=== PATIENT | female | born 1940 | race Caucasian/White ===

== ENCOUNTER 2017-11-25 22:19 | Emergency (ER) | payer MEDICARE, SELFPAY ==
[2017-11-25 22:33] VITALS: BP 171/92; PULSE 69; RESP 18; TEMP 36.4; O2SAT 97; BMI 22.9
--- NOTE | 2017-11-25 22:42 | ED.ABDPAIN ---
HPI - Abdominal Pain General Chief Complaint: Abdominal Pain Stated Complaint: RT LOWER PAIN Time Seen by Provider: 11/25/17 22:38 Source: patient Mode of arrival: ambulatory Limitations: no limitations History of Present Illness HPI narrative: 77-year-old female here for evaluation of abdominal pain. Patient states that earlier this evening after she had dinner she had a period of time where she had 3 waves of which she described as generalized abdominal cramping. Unsure exactly how long the symptoms lasted. She states that her last episode was prior to arrival here in the ER. Patient states she took some Gas-X medication when the symptoms were happening and symptoms resolved approximately 40 min after taking this medicine. No prior abdominal surgeries. Related Data Previous Rx's Medication Instructions Recorded estradiol [Vagifem] 10 mcg VG DAILY #30 05/23/12 bupropion HCl 300 mg PO QDAY #30 tab 05/30/17 lithium carbonate 300 mg PO HS #30 cap 10/03/17 bupropion HCl XL 150 mg 24 hr 150 mg PO QDAY #30 tab 10/25/17 tablet, extended release Allergies Allergy/AdvReac Type Severity Reaction Status Date / Time Sulfa (Sulfonamide Allergy Severe rash Verified 11/25/17 22:38 Antibiotics) [SULFA (SULFONAMIDE ANTIBIOTICS)] Penicillins [PENICILLINS] Allergy Unknown Verified 11/25/17 22:38 codeine [CODEINE] AdvReac Mild upset Verified 11/25/17 22:38 stomach Review of Systems Constitutional Denies chills, Denies fever(s), Denies lethargy and Denies weakness ENT Ears, Nose, Mouth, and Throat: Denies dysphagia Cardiovascular Denies chest pain and Denies dyspnea Respiratory Denies dyspnea Gastrointestinal Gastrointestinal: Reports abdominal pain, Denies melena, Denies bloating, Denies hematochezia, Denies change in bowel habits, Denies constipation, Reports cramping, Denies dysphagia, Denies diarrhea, Denies nausea and Denies vomiting Genitourinary Denies dysuria Neurologic Denies weakness Hematologic/Lymphatic Denies easy bruising PFSH Surgical History Status post cholecystectomy Social History Smoking Status: Former smoker Exam Initial Vital Signs Initial Vital Signs: Vital Signs Temperature 97.5 F L 11/25/17 22:33 Pulse Rate 69 11/25/17 22:33 Respiratory Rate 18 11/25/17 22:33 Blood Pressure 171/92 H 11/25/17 22:33 Pulse Oximetry 97 11/25/17 22:33 Resp Effort & Inspection: normal respiratory effort GI Inspection: normal to inspection and non-distended Palpation: soft, No firm, No guarding, No mass and No tender Skin General: no rashes or lesions noted Neuro General: alert, awake and oriented x3 Course Vital Signs - 8 hr 11/25/17 22:33 Temperature 97.5 F L Pulse Rate 69 Respiratory Rate 18 Blood Pressure 171/92 H Pulse Oximetry 97 MDM - Abdominal Pain MDM Narrative Medical decision making narrative: Patient has been asymptomatic for the past hour. Had a discussion with her regarding her symptoms and options to include holding on any further workup for now and going home and seeing what happens over the next 12-24 hours and returning to the emergency department if her symptoms worsen. We also discussed further workup here in the ER to include lab work come potential CT scan to evaluate for infectious processes such as diverticulitis or appendicitis or other surgical issue such as bowel obstructions. After this discussion the patient opted to hold on any further workup for now seeing as how she has been pain-free for the past hour. She expressed understanding with regard to the return precautions. We did discuss that she could potentially have loose stools over the next 12-24 hours. Her was at bedside for this discussions. They both expressed understanding and agreement with plan Discharge Plan Departure Patient Disposition: Home, Self-Care Clinical Impression: Abdominal pain Instructions: DI for Abdominal Pain-Adult Activity Restrictions/Additional Instructions: We are going to hold on further workup for now as per discussion. I would not be surprised if you developed diarrhea over the next 12-24 hours. If this happens make sure you increase your fluid intake to prevent dehydration. Return to the emergency department for any new or worsening symptoms. Prescriptions: No Action estradiol [Vagifem] 10 MCG tablet 10 mcg VG DAILY Qty: 30 RF: 3 bupropion HCl 300 MG tablet extended release 24 hr 300 mg PO QDAY Qty: 30 RF: 2 lithium carbonate 300 MG capsule 300 mg PO HS Qty: 30 RF: 2 bupropion HCl [Wellbutrin XL] 150 mg tablet extended release 24 hr 150 mg PO QDAY Qty: 30 RF: 2
[2017-11-25 23:40] VITALS: BP 137/73; PULSE 63; RESP 16; TEMP 36.2; O2SAT 98
== END 2017-11-25 23:31 | disposition home or self-care (01) ==
PROVIDERS: Emergency Provider Emergency Medicine; Family Provider Internal Medicine; PCP Internal Medicine
DX: R10.9 Unspecified abdominal pain (principal)
CPT/HCPCS: 99282

== ENCOUNTER 2018-04-16 10:32 | Emergency (ER) | payer MEDICARE, SELFPAY ==
[2018-04-16 10:46] VITALS: BP 139/85; PULSE 75; RESP 15; TEMP 36.5; O2SAT 100; BMI 23.3
[2018-04-16 11:43] VITALS: BP 146/76; PULSE 64; RESP 14; O2SAT 100
[2018-04-16] MEDS: ONDANSETRON 4 MG/2 ML INJ IV (12:22)
[2018-04-16 12:54] LABS: Add Manual Diff / Slide Review NO; Basophils Percent Auto 0.3 % (0-2); Eosinophils Percent Auto 1.6 % (2-4); Hematocrit 37.7 % (36-46); Hemoglobin 13.1 g/dL (12.0-16.0); Lymphocytes Percent Auto 16.8 % (25-40); Mean Corpuscular HGB Conc 34.9 % (30-36); Mean Corpuscular Hemoglobin 31.7 PG (26-34); Mean Corpuscular Volume 90.9 fL (80-100); Monocytes Percent Auto 7.9 % (3-14); Neutrophils Absolute Auto 4100 /uL (3000-5900); Neutrophils Percent Auto 73.4 % (50-75); Platelet Count 234 X10^3/uL (150-400); Red Blood Cell Count 4.15 X10^6/uL (4.0-5.2); Red Cell Distribution Width 13.1 % (11.6-14.8); White Blood Cell Count 5.5 X10^3/uL (4.5-11.0)
[2018-04-16 13:06] LABS: Alanine Aminotransferase 21 IU/L (9-52); Albumin 4.2 g/dL (3.5-5.0); Albumin Globulin Ratio 1.6 (1.0-2.8); Alkaline Phosphatase 82 U/L (38-126); Aspartate Aminotransferase 21 IU/L (14-36); Bilirubin Total 1.5 mg/dL (0.2-1.3); Blood Urea Nitrogen 11 mg/dL (7-17); Calcium 9.5 mg/dL (8.4-10.2); Carbon Dioxide 23 mmol/L (22-32); Chloride 106 mmol/L (98-107); Estimated Glomerular Filt Rate 53.6 mL/min (>60); Globulin 2.6 g/dL (1.7-4.1); Glucose 101 mg/dL (80-110); HEMOLYSIS < 15 (0-50); Potassium 3.8 mmol/L (3.4-5.1); Sodium 142 mmol/L (137-145); Total Protein 6.8 g/dL (6.3-8.2)
[2018-04-16 13:07] LABS: Amylase 69 U/L (30-110); Lipase 39 U/L (23-300)
[2018-04-16 13:31] VITALS: BP 151/72; PULSE 63; O2SAT 100
--- NOTE | 2018-04-16 13:45 | ED_ITS ---
HPI - Nausea/Vomiting/Diarrhea <FREDDIE Lebron - Last Filed: 04/16/18 19:29> General Chief complaint: Nausea/Vomiting/Diarrhea Stated complaint: weakness/throwing up Time Seen by Provider: 04/16/18 13:08 Source: patient and family Mode of arrival: ambulatory Limitations: no limitations History of Present Illness HPI Narrative: Patient presents with chief complaint of vomiting for the past 3 days. She also complains of some diarrhea. She denies any fevers or abdominal pain. She denies any dysuria urgency or frequency. She states she vomits at nighttime only. The diarrhea is often on. She states this started 3 days ago after she drank a cup of coffee. She has not eaten any solid food since. She states she has been drinking during the day but not too much she does not want to get sick. She also states she has not eaten any solid food for the past 3 days, But has been drinking tomato soup. Related Data Previous Rx's Medication Instructions Recorded estradiol [Vagifem] 10 mcg VG DAILY #30 05/23/12 bupropion HCl 300 mg PO QDAY #30 tab 05/30/17 bupropion HCl XL 150 mg 24 hr 150 mg PO QDAY #30 tab 04/10/18 tablet, extended release lithium carbonate 300 mg capsule 300 mg PO HS #30 cap 04/10/18 nitrofurantoin monohyd/m-cryst 100 mg PO Q12H #14 cap 04/16/18 [Macrobid] ondansetron 4 mg PO TID-QID PRN #30 tab 04/16/18 Allergies Allergy/AdvReac Type Severity Reaction Status Date / Time Sulfa (Sulfonamide Allergy Severe rash Verified 04/16/18 10:46 Antibiotics) [SULFA (SULFONAMIDE ANTIBIOTICS)] Penicillins [PENICILLINS] Allergy Unknown Verified 04/16/18 10:46 codeine [CODEINE] AdvReac Mild upset Verified 04/16/18 10:46 stomach Review of Systems <FREDDIE Lebron - Last Filed: 04/16/18 19:29> Review of Systems GENERAL: Denies chills, fatigue, malaise, fever, sweats. HEENT: Denies sinus pain, ear pain, sore throat, difficulty swallowing, dizziness. RESPIRATORY: Denies dyspnea, cough, wheezing, hemoptysis, sputum. CARDIOVASCULAR: Denies chest pain, palpitations, orthopnea, edema, GASTROINTESTINAL: See HPI : Denies dysuria, frequency, incontinence, hematuria, urinary retention. MUSCULOSKELETAL: denies weakness, joint pain, or bony pain SKIN: Denies rash, skin lesions, or other NEUROLOGIC: Denies weakness, headache, numbness, change in speech, confusion, seizures, incoordination. PSYCHIATRIC: No concerning psychosocial issues. 12 point review of systems is negative except for those stated above Exam <KENROY LebronBC - Last Filed: 04/16/18 19:29> Narrative Exam Narrative: GENERAL: thin female lying on stretcher HEAD: Atraumatic. Normocephalic. No temporal or scalp tenderness. EYES: Pupils equal round and reactive. Extraocular motions intact. No scleral icterus. No injection or drainage. ENT: Nose without bleeding, purulent drainage or septal hematoma. Throat without erythema, tonsillar hypertrophy or exudate. Uvula midline. Airway patent. NECK: Trachea midline. No JVD or lymphadenopathy. Supple, nontender, no meningeal signs. CARDIOVASCULAR: Regular rate and rhythm without murmurs, gallops, or rubs. RESPIRATORY: Clear to auscultation. Breath sounds equal bilaterally. No wheezes , rales, or rhonchi. no cough or increased work of breathing GASTROINTESTINAL: Abdomen soft, general suprapubic tenderness to palpation nondistended. No hepato-splenomegaly, or palpable masses. No guarding. no pulsatile mass. No pain at McBurney's point. Abdomen is soft, nonrigid with no guarding. EXTREMITIES: No clubbing, cyanosis, or edema. No joint tenderness, effusion, or edema noted. BACK: Nontender without deformity or crepitance. No flank tenderness. NEURO: AOx3. SKIN: No rash or erythema. Initial Vital Signs Initial Vital Signs: Vital Signs Temperature 97.7 F 04/16/18 10:46 Pulse Rate 75 04/16/18 10:46 Respiratory Rate 15 04/16/18 10:46 Blood Pressure 139/85 04/16/18 10:46 Pulse Oximetry 100 04/16/18 10:46 <Carol Smith DO - Last Filed: 04/16/18 19:42> Initial Vital Signs Initial Vital Signs: Vital Signs Temperature 97.7 F 04/16/18 10:46 Pulse Rate 75 04/16/18 10:46 Respiratory Rate 15 04/16/18 10:46 Blood Pressure 139/85 04/16/18 10:46 Pulse Oximetry 100 04/16/18 10:46 Course <ARIELA Lebron-BC - Last Filed: 04/16/18 19:29> Orders Ordered: ED Orders 04/16/18 12:20 Amylase Stat Complete Blood Count AUTO DIFF Stat Comprehensive Metabolic Panel Stat Lipase Stat 04/16/18 15:58 Urine Culture Stat Urine Microscopic Stat Discontinued Medications Sodium Chloride (Normal Saline 0.9%) 1,000 mls @ 1,000 mls/hr IV BOLUS ONE Stop: 04/16/18 14:29 Last Infusion: 04/16/18 16:08 Dose: 0 mls/hr Admin: 04/16/18 13:48 Dose: 1,000 mls/hr Ondansetron HCl (Zofran) 4 mg IV NOW ONE Stop: 04/16/18 11:32 Last Admin: 04/16/18 12:22 Dose: 4 mg Vital Signs - 8 hr 04/16/18 11:43 04/16/18 13:31 04/16/18 14:31 Pulse Rate 64 63 77 Respiratory Rate 14 Blood Pressure Blood Pressure [Left Arm] 146/76 H 151/72 H 139/55 L Pulse Oximetry 100 100 100 04/16/18 16:46 Pulse Rate 82 Respiratory Rate 13 Blood Pressure 142/82 H Blood Pressure [Left Arm] Pulse Oximetry 100 <Carol Smith DO - Last Filed: 04/16/18 19:42> Orders Ordered: ED Orders 04/16/18 12:20 Amylase Stat Complete Blood Count AUTO DIFF Stat Comprehensive Metabolic Panel Stat Lipase Stat 04/16/18 15:58 Urine Culture Stat Urine Microscopic Stat Discontinued Medications Sodium Chloride (Normal Saline 0.9%) 1,000 mls @ 1,000 mls/hr IV BOLUS ONE Stop: 04/16/18 14:29 Last Infusion: 04/16/18 16:08 Dose: 0 mls/hr Admin: 04/16/18 13:48 Dose: 1,000 mls/hr Ondansetron HCl (Zofran) 4 mg IV NOW ONE Stop: 04/16/18 11:32 Last Admin: 04/16/18 12:22 Dose: 4 mg Vital Signs - 8 hr 04/16/18 11:43 04/16/18 13:31 04/16/18 14:31 Pulse Rate 64 63 77 Respiratory Rate 14 Blood Pressure Blood Pressure [Left Arm] 146/76 H 151/72 H 139/55 L Pulse Oximetry 100 100 100 04/16/18 16:46 Pulse Rate 82 Respiratory Rate 13 Blood Pressure 142/82 H Blood Pressure [Left Arm] Pulse Oximetry 100 MDM - Nausea/Vomiting/Diarrhea <ARIELA Lebron- - Last Filed: 04/16/18 19:29> Lab Data Result diagrams: 04/16/18 12:20 04/16/18 12:20 Lab Results 04/16/18 04/16/18 04/16/18 Range/Units 12:20 12:20 12:20 WBC 5.5 (4.5-11.0) X10^3/uL RBC 4.15 (4.0-5.2) X10^6/uL Hgb 13.1 (12.0-16.0) g/dL Hct 37.7 (36-46) % MCV 90.9 (80-100) fL MCH 31.7 (26-34) PG MCHC 34.9 (30-36) % RDW 13.1 (11.6-14.8) % Plt Count 234 (150-400) X10^3/uL Neut % (Auto) 73.4 (50-75) % Lymph % (Auto) 16.8 L (25-40) % Tucker % (Auto) 7.9 (3-14) % Eos % (Auto) 1.6 L (2-4) % Baso % (Auto) 0.3 (0-2) % Neut # (Auto) 4100 (6955-8957) /uL Sodium 142 (137-145) mmol/L Potassium 3.8 (3.4-5.1) mmol/L Chloride 106 (98-107) mmol/L Carbon Dioxide 23 (22-32) mmol/L BUN 11 (7-17) mg/dL Creatinine 1.00 (0.52-1.04) mg/dL Estimated GFR 53.6 L (>60) mL/min BUN/Creatinine Ratio 11.0 (6-22) Glucose 101 (80-110) mg/dL Calcium 9.5 (8.4-10.2) mg/dL Total Bilirubin 1.5 H (0.2-1.3) mg/dL AST 21 (14-36) IU/L ALT 21 (9-52) IU/L Alkaline Phosphatase 82 (38-126) U/L Total Protein 6.8 (6.3-8.2) g/dL Albumin 4.2 (3.5-5.0) g/dL Globulin 2.6 (1.7-4.1) g/dL Albumin/Globulin Ratio 1.6 (1.0-2.8) Amylase 69 (30-110) U/L Lipase 39 (23-300) U/L Urine RBC (0-5/HPF) Urine WBC (0-5/HPF) Ur Squamous Epith Cells Urine Bacteria (None) Ur Culture Indicated? Micro UA Comment 04/16/18 Range/Units 15:58 WBC (4.5-11.0) X10^3/uL RBC (4.0-5.2) X10^6/uL Hgb (12.0-16.0) g/dL Hct (36-46) % MCV (80-100) fL MCH (26-34) PG MCHC (30-36) % RDW (11.6-14.8) % Plt Count (150-400) X10^3/uL Neut % (Auto) (50-75) % Lymph % (Auto) (25-40) % Tucker % (Auto) (3-14) % Eos % (Auto) (2-4) % Baso % (Auto) (0-2) % Neut # (Auto) (0881-9980) /uL Sodium (137-145) mmol/L Potassium (3.4-5.1) mmol/L Chloride (98-107) mmol/L Carbon Dioxide (22-32) mmol/L BUN (7-17) mg/dL Creatinine (0.52-1.04) mg/dL Estimated GFR (>60) mL/min BUN/Creatinine Ratio (6-22) Glucose (80-110) mg/dL Calcium (8.4-10.2) mg/dL Total Bilirubin (0.2-1.3) mg/dL AST (14-36) IU/L ALT (9-52) IU/L Alkaline Phosphatase (38-126) U/L Total Protein (6.3-8.2) g/dL Albumin (3.5-5.0) g/dL Globulin (1.7-4.1) g/dL Albumin/Globulin Ratio (1.0-2.8) Amylase (30-110) U/L Lipase (23-300) U/L Urine RBC None seen (0-5/HPF) Urine WBC 5-10/hpf H (0-5/HPF) Ur Squamous Epith Cells 0-1 /hpf Urine Bacteria Few (2-10) H (None) Ur Culture Indicated? Specimen cultured Micro UA Comment Not Reportable MDM Narrative Medical decision making narrative: Patient presents with chief complaint of nausea and vomiting and diarrhea. She states that her vomiting only occurs at nighttime. She is hemodynamically stable, afebrile and nontoxic-appearing. She had a CBC, CMP, lipase and amylase within normal limits. Given her relatively benign exam and stable vital signs and non elevated white blood cell count, I suggested conservative measures at this point in time. I gave her prescription of Zofran. Of note she did have bacteria in her urine, and a UTI could be causing the symptoms. I placed her on Macrobid. Urine culture is pending. The patient stated prior to discharge that she had drank kiley annita , eaten crackers and felt back to her baseline. I discussed at length return precautions of not being able to keep down fluids, worsening pain and fever. Patient has been had no questions or concerns upon discharge. <Carol Smith, DO - Last Filed: 04/16/18 19:42> Lab Data Lab Results 04/16/18 04/16/18 04/16/18 Range/Units 12:20 12:20 12:20 WBC 5.5 (4.5-11.0) X10^3/uL RBC 4.15 (4.0-5.2) X10^6/uL Hgb 13.1 (12.0-16.0) g/dL Hct 37.7 (36-46) % MCV 90.9 (80-100) fL MCH 31.7 (26-34) PG MCHC 34.9 (30-36) % RDW 13.1 (11.6-14.8) % Plt Count 234 (150-400) X10^3/uL Neut % (Auto) 73.4 (50-75) % Lymph % (Auto) 16.8 L (25-40) % Tucker % (Auto) 7.9 (3-14) % Eos % (Auto) 1.6 L (2-4) % Baso % (Auto) 0.3 (0-2) % Neut # (Auto) 4100 (6823-2978) /uL Sodium 142 (137-145) mmol/L Potassium 3.8 (3.4-5.1) mmol/L Chloride 106 (98-107) mmol/L Carbon Dioxide 23 (22-32) mmol/L BUN 11 (7-17) mg/dL Creatinine 1.00 (0.52-1.04) mg/dL Estimated GFR 53.6 L (>60) mL/min BUN/Creatinine Ratio 11.0 (6-22) Glucose 101 (80-110) mg/dL Calcium 9.5 (8.4-10.2) mg/dL Total Bilirubin 1.5 H (0.2-1.3) mg/dL AST 21 (14-36) IU/L ALT 21 (9-52) IU/L Alkaline Phosphatase 82 (38-126) U/L Total Protein 6.8 (6.3-8.2) g/dL Albumin 4.2 (3.5-5.0) g/dL Globulin 2.6 (1.7-4.1) g/dL Albumin/Globulin Ratio 1.6 (1.0-2.8) Amylase 69 (30-110) U/L Lipase 39 (23-300) U/L Urine RBC (0-5/HPF) Urine WBC (0-5/HPF) Ur Squamous Epith Cells Urine Bacteria (None) Ur Culture Indicated? Micro UA Comment 04/16/18 Range/Units 15:58 WBC (4.5-11.0) X10^3/uL RBC (4.0-5.2) X10^6/uL Hgb (12.0-16.0) g/dL Hct (36-46) % MCV (80-100) fL MCH (26-34) PG MCHC (30-36) % RDW (11.6-14.8) % Plt Count (150-400) X10^3/uL Neut % (Auto) (50-75) % Lymph % (Auto) (25-40) % Tucker % (Auto) (3-14) % Eos % (Auto) (2-4) % Baso % (Auto) (0-2) % Neut # (Auto) (7093-0118) /uL Sodium (137-145) mmol/L Potassium (3.4-5.1) mmol/L Chloride (98-107) mmol/L Carbon Dioxide (22-32) mmol/L BUN (7-17) mg/dL Creatinine (0.52-1.04) mg/dL Estimated GFR (>60) mL/min BUN/Creatinine Ratio (6-22) Glucose (80-110) mg/dL Calcium (8.4-10.2) mg/dL Total Bilirubin (0.2-1.3) mg/dL AST (14-36) IU/L ALT (9-52) IU/L Alkaline Phosphatase (38-126) U/L Total Protein (6.3-8.2) g/dL Albumin (3.5-5.0) g/dL Globulin (1.7-4.1) g/dL Albumin/Globulin Ratio (1.0-2.8) Amylase (30-110) U/L Lipase (23-300) U/L Urine RBC None seen (0-5/HPF) Urine WBC 5-10/hpf H (0-5/HPF) Ur Squamous Epith Cells 0-1 /hpf Urine Bacteria Few (2-10) H (None) Ur Culture Indicated? Specimen cultured Micro UA Comment Not Reportable Discharge Plan Departure Patient Disposition: Home Clinical Impression: Acute UTI, Vomiting, Recurrent major depressive disorder, in partial remission Discharge Date/Time: 04/16/18 16:40 Interventions: ED Discharge Assessment Last Done: 04/16/18 16:46 Instructions: DI for Urinary Tract Infection (UTI), DI for Vomiting -- Adult Activity Restrictions/Additional Instructions: Given the bacteria in your urine, I am starting you on an antibiotic for a urinary tract infection. I am also giving you a medication to take as needed for nausea. I suggested easy to digest diet without spicy foods, acidic foods , fried foods or fatty foods. Please push fluids, monitor for high fever, worsening abdominal pain as well as flank pain. Come back to the emergency department if needed. Please feel free to follow up with your primary care provider. Prescriptions: New nitrofurantoin monohyd/m-cryst [Macrobid] 100 mg capsule 100 mg PO Q12H Qty: 14 RF: 0 ondansetron 4 mg tablet,disintegrating 4 mg PO TID-QID PRN (Reason: nausea and vomiting) Qty: 30 RF: 0 No Action estradiol [Vagifem] 10 MCG tablet 10 mcg VG DAILY Qty: 30 RF: 3 bupropion HCl 300 MG tablet extended release 24 hr 300 mg PO QDAY Qty: 30 RF: 2 bupropion HCl [Wellbutrin XL] 150 mg tablet extended release 24 hr 150 mg PO QDAY Qty: 30 RF: 2 lithium carbonate 300 mg capsule 300 mg PO HS Qty: 30 RF: 2 Referrals: Nigel Galan MD [Primary Care Provider] - <Carol Smith DO - Last Filed: 04/16/18 19:42> Cosign ED Attending Cosignature Attestation: I was immediately available in the department for consultation. This documentation has been reviewed and I agree with assessment and plan. Supervised by Carol Smith DO
[2018-04-16] MEDS: SODIUM CHLORIDE 0.9% 1,000 ML 1000 ML IV (13:48)
[2018-04-16 14:31] VITALS: BP 139/55; PULSE 77; O2SAT 100
[2018-04-16 16:02] LABS: RBC Urine None Seen (0-5/HPF)
[2018-04-16 16:09] LABS: Squamous Epithelial Cell Urine 0-1 /HPF; WBC Urine 5-10/HPF (0-5/HPF)
[2018-04-16 16:10] LABS: Bacteria Urine Few (2-10); Culture Indicated Urine Specimen Cultured
[2018-04-16 16:46] VITALS: BP 142/82; PULSE 82; RESP 13; O2SAT 100
== END 2018-04-16 16:40 | disposition home or self-care (01) ==
PROVIDERS: Emergency Medicine; Emergency Provider Nurse Practitioner Family; Family Provider Internal Medicine; PCP Internal Medicine
DX: N39.0 Urinary tract infection, site not specified (principal); R11.10 Vomiting, unspecified; F33.41 Major depressive disorder, recurrent, in partial remission
CPT/HCPCS: 36591; 80053; 81015; 82150; 83690; 85025; 87086; 96361; 96374; 99283; 99284; J2405

== ENCOUNTER 2018-06-27 21:57 | Emergency (ER) | payer MEDICARE, SELFPAY ==
[2018-06-27 22:07] VITALS: BP 129/99; PULSE 80; RESP 18; TEMP 36.6; O2SAT 100; BMI 23.3
--- NOTE | 2018-06-27 22:20 | ED_ITS ---
HPI - Abdominal Pain General Chief Complaint: Abdominal Pain Stated Complaint: NAUSEA WEAKNESS Time Seen by Provider: 06/27/18 22:20 Source: patient and family Mode of arrival: ambulatory Limitations: no limitations History of Present Illness HPI narrative: 78-year-old female here for evaluation of approximately 1 month of intermittent diarrhea and nausea. She also states that she has a loss of appetite. She also states she is feeling weak. She states that she gets intermittent diarrhea. She has been taking Imodium at home which she states improved her symptoms for a couple days to if not a week afterwards but then the diarrhea returns. She did recently have an appointment with her primary doctor however did not mention the symptoms to him. She is here this evening because her told her that she needed to be evaluated. Related Data Previous Rx's Medication Instructions Recorded estradiol [Vagifem] 10 mcg VG DAILY #30 05/23/12 bupropion HCl 300 mg PO QDAY #30 tab 05/30/17 bupropion HCl XL 150 mg 24 hr 150 mg PO QDAY #30 tab 04/10/18 tablet, extended release lithium carbonate 300 mg capsule 300 mg PO HS #30 cap 04/10/18 nitrofurantoin monohyd/m-cryst 100 mg PO Q12H #14 cap 04/16/18 [Macrobid] ondansetron 4 mg PO TID-QID PRN #30 tab 04/16/18 ondansetron 4 mg PO Q6-8H PRN #10 tab 06/28/18 Allergies Allergy/AdvReac Type Severity Reaction Status Date / Time Sulfa (Sulfonamide Allergy Severe rash Verified 04/16/18 10:46 Antibiotics) [SULFA (SULFONAMIDE ANTIBIOTICS)] Penicillins [PENICILLINS] Allergy Unknown Verified 04/16/18 10:46 codeine [CODEINE] AdvReac Mild upset Verified 04/16/18 10:46 stomach Review of Systems Constitutional Reports fatigue and Denies headache(s) ENT Ears, Nose, Mouth, and Throat: Denies headache(s) Cardiovascular Denies chest pain and Denies dyspnea Respiratory Denies dyspnea Gastrointestinal Gastrointestinal: Denies abdominal pain, Reports diarrhea, Reports nausea and Denies vomiting Genitourinary Denies dysuria Musculoskeletal Denies myalgias and Denies arthralgias Integumentary/Breasts Denies lesions and Denies rash Neurologic Denies headache(s) Endocrine Reports fatigue PFSH Medical History PTSD (post-traumatic stress disorder) (Acute) Surgical History Status post cholecystectomy Social History Smoking Status: Former smoker Exam Initial Vital Signs Initial Vital Signs: Vital Signs Temperature 97.9 F 06/27/18 22:07 Pulse Rate 80 06/27/18 22:07 Respiratory Rate 18 06/27/18 22:07 Blood Pressure 129/99 H 06/27/18 22:07 Pulse Oximetry 100 06/27/18 22:07 Const General: cooperative, comfortable, well developed, well groomed and No acute distress Orientation: alert, awake and oriented x3 HENMT Head: normal to inspection and normocephalic Resp Effort & Inspection: normal respiratory effort Auscultation: clear to auscultation bilaterally Cardio Rate: regular rate Rhythm: regular rhythm GI Inspection: non-distended Palpation: soft, No firm and No tender Skin Lesions: no lesions Rashes: no rashes Neuro General: alert, awake and oriented x3 Extrem General: normal to inspection and capillary refill normal Psych Appearance: grossly normal and well kempt Course Orders Ordered: ED Orders 06/27/18 22:38 CT abdomen pelvis w con Stat 06/27/18 22:45 Complete Blood Count AUTO DIFF Stat Comprehensive Metabolic Panel Stat Lipase Stat Discontinued Medications Sodium Chloride (Normal Saline 0.9%) 1,000 mls @ 1,000 mls/hr IV BOLUS ONE Stop: 06/27/18 23:35 Last Infusion: 06/28/18 00:26 Dose: 1,000 mls/hr Admin: 06/27/18 22:44 Dose: 1,000 mls/hr Ondansetron HCl (Zofran) 4 mg IV NOW ONE Stop: 06/27/18 22:43 Last Admin: 06/27/18 22:44 Dose: 4 mg Vital Signs - 8 hr 06/27/18 22:45 06/28/18 00:33 Temperature 97.9 F Pulse Rate 80 80 Respiratory Rate 18 15 Blood Pressure 129/99 H Blood Pressure [Right Arm] 123/48 L Pulse Oximetry 100 99 MDM - Abdominal Pain Lab Data Attestation: I reviewed the patient's lab results. Result diagrams: 06/27/18 22:45 06/27/18 22:45 Lab Results 06/27/18 06/27/18 Range/Units 22:45 22:45 WBC 9.2 (4.5-11.0) X10^3/uL RBC 4.08 (4.0-5.2) X10^6/uL Hgb 12.5 (12.0-16.0) g/dL Hct 36.4 (36-46) % MCV 89.2 (80-100) fL MCH 30.7 (26-34) PG MCHC 34.4 (30-36) % RDW 13.2 (11.6-14.8) % Plt Count 215 (150-400) X10^3/uL Neut % (Auto) 83.4 H (50-75) % Lymph % (Auto) 5.8 L (25-40) % [place] % (Auto) 10.3 (3-14) % Eos % (Auto) 0.2 L (2-4) % Baso % (Auto) 0.3 (0-2) % Neut # (Auto) 7700 H (9147-5594) /uL Sodium 136 L (137-145) mmol/L Potassium 4.2 (3.4-5.1) mmol/L Chloride 101 (98-107) mmol/L Carbon Dioxide 22 (22-32) mmol/L BUN 15 (7-17) mg/dL Creatinine 1.10 H (0.52-1.04) mg/dL Estimated GFR 48.0 L (>60) mL/min BUN/Creatinine Ratio 13.6 (6-22) Glucose 144 H (80-110) mg/dL Calcium 9.1 (8.4-10.2) mg/dL Total Bilirubin 1.6 H (0.2-1.3) mg/dL AST 15 (14-36) IU/L ALT 16 (9-52) IU/L Alkaline Phosphatase 86 (38-126) U/L Total Protein 7.2 (6.3-8.2) g/dL Albumin 4.1 (3.5-5.0) g/dL Globulin 3.1 (1.7-4.1) g/dL Albumin/Globulin Ratio 1.3 (1.0-2.8) Lipase 47 (23-300) U/L Imaging Data CT scan - abdomen: Radiologist's impression: Moderate diverticulosis of the sigmoid and at least a mild wall thickening of much of the sigmoid, especially the mid sigmoid , this could be due to very mild inflammatory due to colitis or diverticulitis. No other acute findings. No free air, no fluid abscesses. There is a small cystic structure anterior to the left sacrum which is presumably dilated nerve root sheath or other benign finding. Stable from 2011. Nonvisualized appendix. Cholecystectomy. Small hiatal hernia. MDM Narrative Medical decision making narrative: Patient has a benign abdominal exam. CT scan does not show any acute pathology. I feel that diverticulitis is unlikely given her history and physical exam. Will hold on any antibiotics for now. Patient was unable to give us a stool sample here in the ER. Her symptoms have been going on for several weeks if not over a month now. Labs unremarkable. Had a long discussion with the patient and her regarding the symptoms. Informed her that she needed talk with her primary doctor about the indications for her to get in to see Gastroenterology. She is given return precautions. She expressed understanding and agreement with plan. Discharge Plan Departure Patient Disposition: Home Clinical Impression: Diarrhea, Vomiting Discharge Date/Time: 06/28/18 00:52 Interventions: ED Discharge Assessment Last Done: 06/28/18 00:50 Instructions: Diarrhea (Alternative Therapy), Diarrhea, DI for Vomiting -- Adult Activity Restrictions/Additional Instructions: I recommend that you talk with your primary care doctor about the indications for referral to see Gastroenterology. I also recommend that you increase your fluid intake and try to eat a well-balanced diet. Take the nausea medication as directed as needed. Return to the emergency department for any new symptoms Prescriptions: New ondansetron 4 mg tablet,disintegrating 4 mg PO Q6-8H PRN (Reason: nausea and vomiting) Qty: 10 RF: 0 No Action estradiol [Vagifem] 10 MCG tablet 10 mcg VG DAILY Qty: 30 RF: 3 bupropion HCl 300 MG tablet extended release 24 hr 300 mg PO QDAY Qty: 30 RF: 2 bupropion HCl [Wellbutrin XL] 150 mg tablet extended release 24 hr 150 mg PO QDAY Qty: 30 RF: 2 lithium carbonate 300 mg capsule 300 mg PO HS Qty: 30 RF: 2 nitrofurantoin monohyd/m-cryst [Macrobid] 100 mg capsule 100 mg PO Q12H Qty: 14 RF: 0 ondansetron 4 mg tablet,disintegrating 4 mg PO TID-QID PRN (Reason: nausea and vomiting) Qty: 30 RF: 0
--- NOTE | 2018-06-27 22:38 | DI.CT.S_ITS ---
PROCEDURE: CT ABDOMEN PELVIS W CON INDICATIONS: Left-sided abdominal pain TECHNIQUE: After the administration of intravenous contrast, 5 mm thick sections acquired from the diaphragm to the symphysis. 5 mm coronal and sagittal reformats were acquired. For radiation dose reduction, the following was used: automated exposure control, adjustment of mA and/or kV according to patient size. COMPARISON: [facility], CT, ABDOMEN/PELVIS WITH CONTRAST, 05/24/2012, 9:55. FINDINGS: Image quality: Excellent. ABDOMEN: Lung bases: Lung bases are clear. Heart size is normal. Coronary atherosclerotic calcifications are visualized. Small hiatal hernia. Solid organs: There are multiple scattered small hepatic hypodensities, most of which are too small to accurately characterize but likely represent small cysts. The largest is noted near the liver hilum and measures fluid attenuation. These were noted on comparison CT of 2012. Liver is otherwise normal in size and enhancement. Gallbladder is surgically absent. Biliary system is non dilated. Pancreas enhances normally. Spleen is normal in size and enhancement. No adrenal nodules. Kidneys demonstrate normal size and enhancement, without hydronephrosis. Very small bilateral renal hypodensities are too small to accurately characterize but likely represent small cysts. Peritoneum and bowel: Bowel loops demonstrate normal wall thickness and caliber. There is moderate scattered colonic diverticulosis with mild circumferential wall thickening of the sigmoid colon. Minimal pericolonic inflammation in this region. No evidence for free air or organized fluid collection. No evidence for bowel obstruction. Nodes and vessels: No retroperitoneal or mesenteric adenopathy by size criteria. Aorta and inferior vena cava are normal in size. Scattered vascular calcifications are present in the visualized portions of the abdominal aorta and iliac vessels. Miscellaneous: No ventral hernias. Tiny fat-containing umbilical hernia without acute inflammation. PELVIS: Genitourinary: Bladder wall thickness is normal. Visualized pelvic organs are unremarkable. Multiple pelvic surgical clips as before. Miscellaneous: No inguinal hernias or adenopathy. Bones: No suspicious bony lesions. Multilevel degenerative spondylosis of the lower thoracic and visualized lumbar spine. Stable grade 1 anterolisthesis of L5 on S1 secondary L5 pars interarticularis defects. No acute vertebral body compression fractures. IMPRESSION: Moderate colonic diverticulosis with segment of circumferential wall thickening of the sigmoid colon and minimal surrounding inflammatory changes compatible with mild acute diverticulitis versus colitis. No evidence for free air or organized fluid collection. Other chronic findings as above. Dictated by: Helder Acosta M.D. on 06/28/2018 at 8:55 Approved by: Helder Acosta M.D. on 06/28/2018 at 9:34
[2018-06-27] MEDS: ONDANSETRON 4 MG/2 ML INJ IV (22:44)
[2018-06-27] MEDS: SODIUM CHLORIDE 0.9% 1,000 ML 1000 ML IV (22:44)
[2018-06-27 22:45] VITALS: BP 129/99; PULSE 80; RESP 18; TEMP 36.6; O2SAT 100; BMI 23.3
[2018-06-27 22:58] LABS: Add Manual Diff / Slide Review NO; Basophils Percent Auto 0.3 % (0-2); Eosinophils Percent Auto 0.2 % (2-4); Hematocrit 36.4 % (36-46); Hemoglobin 12.5 g/dL (12.0-16.0); Lymphocytes Percent Auto 5.8 % (25-40); Mean Corpuscular HGB Conc 34.4 % (30-36); Mean Corpuscular Hemoglobin 30.7 PG (26-34); Mean Corpuscular Volume 89.2 fL (80-100); Monocytes Percent Auto 10.3 % (3-14); Neutrophils Absolute Auto 7700 /uL (1500-7000); Neutrophils Percent Auto 83.4 % (50-75); Platelet Count 215 X10^3/uL (150-400); Red Blood Cell Count 4.08 X10^6/uL (4.0-5.2); Red Cell Distribution Width 13.2 % (11.6-14.8); White Blood Cell Count 9.2 X10^3/uL (4.5-11.0)
[2018-06-27 23:04] LABS: Alanine Aminotransferase 16 IU/L (9-52); Albumin 4.1 g/dL (3.5-5.0); Albumin Globulin Ratio 1.3 (1.0-2.8); Alkaline Phosphatase 86 U/L (38-126); Aspartate Aminotransferase 15 IU/L (14-36); BUN Creatinine Ratio 13.6 (6-22); Bilirubin Total 1.6 mg/dL (0.2-1.3); Blood Urea Nitrogen 15 mg/dL (7-17); Calcium 9.1 mg/dL (8.4-10.2); Carbon Dioxide 22 mmol/L (22-32); Chloride 101 mmol/L (98-107); Globulin 3.1 g/dL (1.7-4.1); Glucose 144 mg/dL (80-110); HEMOLYSIS < 15 (0-50); Lipase 47 U/L (23-300); Potassium 4.2 mmol/L (3.4-5.1); Sodium 136 mmol/L (137-145); Total Protein 7.2 g/dL (6.3-8.2)
[2018-06-28 00:33] VITALS: BP 123/48; PULSE 80; RESP 15; O2SAT 99
== END 2018-06-28 00:52 | disposition home or self-care (01) ==
PROVIDERS: Emergency Provider Emergency Medicine; Family Provider Internal Medicine; PCP Internal Medicine
DX: R19.7 Diarrhea, unspecified (principal); R11.10 Vomiting, unspecified
CPT/HCPCS: 36415; 74177; 80053; 83690; 85025; 96361; 96374; 99283; 99285; J2405; Q9967

== ENCOUNTER 2018-06-29 14:08 | Emergency (ER) | payer MEDICARE, SELFPAY ==
[2018-06-29 14:13] VITALS: BP 125/65; PULSE 73; RESP 20; TEMP 37.1; O2SAT 97; BMI 22.8
--- NOTE | 2018-06-29 17:26 | ED.ALLEREA ---
HPI - Allergic Reaction <YANETH Morataya - Last Filed: 06/29/18 22:21> General Chief complaint: Allergic Reaction Stated complaint: states allergic reaction Time Seen by Provider: 06/29/18 16:50 Source: patient Mode of arrival: ambulatory Limitations: no limitations History of Present Illness HPI narrative: 78-year-old female here for complaint of redness and swelling to her face and ears over the past couple of days. She was seen here in the emergency room 2 days ago where a CT of the abdomen was obtained with IV contrast. She denies any abdominal discomfort or complaints at this time she has awaiting follow-up with primary care provider for discussion referral to specialty care at GI. She believes that she is having allergic reaction to something that she received here while in the emergency room. She denies any changes in her medications. No recent antibiotic use. She denies any shortness of breath. No swelling of her throat or tongue. She is able to speak full sentences. She denies any other concerns or complaints this time. No changes in her diet or hygiene. MD complaint: allergic reaction Related Data Home Medications Medication Instructions Recorded Confirmed bupropion HCl [Wellbutrin XL] 150 mg PO DAILY 06/29/18 06/29/18 diazepam 5 mg PO DAILY 06/29/18 06/29/18 metoprolol succinate 06/29/18 Previous Rx's Medication Instructions Recorded estradiol [Vagifem] 10 mcg VG DAILY #30 05/23/12 bupropion HCl 300 mg PO QDAY #30 tab 05/30/17 lithium carbonate 300 mg capsule 300 mg PO HS #30 cap 04/10/18 ondansetron 4 mg PO TID-QID PRN #30 tab 04/16/18 ondansetron 4 mg PO Q6-8H PRN #10 tab 06/28/18 diphenhydramine HCl 25 mg PO Q4-6H PRN #15 cap 06/29/18 prednisone 40 mg PO DAILY #8 tab 06/29/18 cetirizine 5 mg PO DAILY #5 tab 07/01/18 prednisolone See Label Instructions PO PER PKG 07/01/18 DIR #21 each ranitidine HCl 75 mg PO BID #10 tab 07/01/18 Allergies Allergy/AdvReac Type Severity Reaction Status Date / Time Sulfa (Sulfonamide Allergy Severe rash Verified 04/16/18 10:46 Antibiotics) [SULFA (SULFONAMIDE ANTIBIOTICS)] Penicillins [PENICILLINS] Allergy Unknown Verified 04/16/18 10:46 Iodinated Contrast- Oral and Allergy Facial Unverified 06/29/18 17:33 IV Dye swelling and rash codeine [CODEINE] AdvReac Mild upset Verified 04/16/18 10:46 stomach Review of Systems <YANETH Morataya - Last Filed: 06/29/18 22:21> Constitutional Denies chills, Denies fever(s), Denies lethargy and Denies weakness Eyes Denies change in vision, Denies eye discharge, Denies irritation and Denies loss of vision ENT Comments: Redness and swelling to face Cardiovascular Denies chest pain, Denies irregular heart rhythm, Denies lightheadedness, Denies palpitations, Denies dyspnea, Denies dyspnea on exertion and Denies orthopnea Respiratory Denies cough, Denies dyspnea, Denies dyspnea on exertion and Denies wheezing Gastrointestinal Gastrointestinal: Denies abdominal pain, Denies change in bowel habits, Denies diarrhea, Denies nausea and Denies vomiting Genitourinary Denies hematuria, Denies flank pain, Denies urinary incontinence and Denies urinary urgency Musculoskeletal Denies back pain, Denies muscle weakness, Denies numbness and Denies tingling Integumentary/Breasts Denies pruritus, Denies erythema, Denies rash and Denies wounds Neurologic Denies confusion, Denies loss of vision, Denies numbness, Denies tingling and Denies weakness Psychiatric Denies anxiety, Denies confusion, Denies depression, Denies homicidal ideation and Denies suicidal ideation Endocrine Denies palpitations Hematologic/Lymphatic Denies easy bruising Allergic/Immunologic Denies wheezing Exam <YANETH Morataya - Last Filed: 06/29/18 22:21> Initial Vital Signs Initial Vital Signs: Vital Signs Temperature 98.7 F 06/29/18 14:13 Pulse Rate 73 06/29/18 14:13 Respiratory Rate 20 06/29/18 14:13 Blood Pressure 125/65 06/29/18 14:13 Pulse Oximetry 97 06/29/18 14:13 Const General: cooperative and well developed Nutritional Appearance: well nourished Orientation: alert, awake, oriented x3 and not confused HENDC Face and sinus: erythema and other (Mild swelling to the lateral and inferior aspects of the face into the bilateral ears and forehead) Eyes Eyelids: eyelids normal Conjunctivae: conjunctivae normal Sclera: sclerae normal Pupils: PERRL EOM: EOM intact bilaterally Resp Effort & Inspection: normal respiratory effort, able to speak in complete sentences, no respiratory distress and no use of accessory muscles Auscultation: clear to auscultation bilaterally, no rales, no rhonchi and no wheezes Cardio Rate: regular rate Rhythm: regular rhythm Heart Sounds: no click, no gallops, no murmurs and no rubs Pulses: normal peripheral pulses GI Inspection: non-distended Palpation: soft, no hepatosplenomegaly, No guarding, No pulsatile mass and No tender Auscultation: normal bowel sounds Skin General: no rashes or lesions noted, No jaundice and No petechiae Neuro General: alert, oriented x3, gait normal and no focal motor deficits Speech: speech normal <Carol Smith DO - Last Filed: 07/02/18 09:06> Initial Vital Signs Initial Vital Signs: Vital Signs Temperature 98.7 F 06/29/18 14:13 Pulse Rate 73 06/29/18 14:13 Respiratory Rate 20 06/29/18 14:13 Blood Pressure 125/65 06/29/18 14:13 Pulse Oximetry 97 06/29/18 14:13 Course <YANETH Morataya - Last Filed: 06/29/18 22:21> Vital Signs - 8 hr 06/29/18 17:45 Temperature 98.2 F Pulse Rate 65 Respiratory Rate 16 Blood Pressure [Left Arm] 124/62 Pulse Oximetry 99 <Carol Smith DO - Last Filed: 07/02/18 09:06> Vital Signs - 8 hr 06/29/18 17:45 Temperature 98.2 F Pulse Rate 65 Respiratory Rate 16 Blood Pressure [Left Arm] 124/62 Pulse Oximetry 99 MDM - Allergic Reaction <YANETH Morataya - Last Filed: 06/29/18 22:21> MDM Narrative Medical decision making narrative: No signs and symptoms of distress. Suspect that IV contrast may be trigger for her symptoms. She is prescribed a Benadryl and short course of prednisone for her symptoms. Follow up with primary care provider next week for re-evaluation. For any worsening symptoms return to the emergency room. Discharge Plan Departure Patient Disposition: Home Clinical Impression: Allergic reaction Discharge Date/Time: 06/29/18 17:52 Interventions: ED Discharge Assessment Last Done: 06/29/18 17:52 Instructions: DI for Adverse Drug Reaction -- Allergic Activity Restrictions/Additional Instructions: Suspect that IV contrast dye may be cause of your allergic reaction. You are prescribed Benadryl and oral steroids to help with the inflammation use as directed. Follow up with primary care provider next week for re-evaluation. For any worsening symptoms return to the emergency room. Prescriptions: New prednisone 20 mg tablet 40 mg PO DAILY Qty: 8 RF: 0 diphenhydramine HCl 25 mg capsule 25 mg PO Q4-6H PRN (Reason: allergic reaction) Qty: 15 RF: 0 No Action estradiol [Vagifem] 10 MCG tablet 10 mcg VG DAILY Qty: 30 RF: 3 bupropion HCl 300 MG tablet extended release 24 hr 300 mg PO QDAY Qty: 30 RF: 2 lithium carbonate 300 mg capsule 300 mg PO HS Qty: 30 RF: 2 ondansetron 4 mg tablet,disintegrating 4 mg PO Q6-8H PRN (Reason: nausea and vomiting) Qty: 10 RF: 0 metoprolol succinate 25 mg tablet extended release 24 hr RF: 0 diazepam 5 mg tablet 5 mg PO DAILY RF: 0 bupropion HCl [Wellbutrin XL] 150 mg tablet extended release 24 hr 150 mg PO DAILY RF: 0 ondansetron 4 mg tablet,disintegrating 4 mg PO TID-QID PRN (Reason: nausea and vomiting) Qty: 30 RF: 0 cetirizine 10 mg tablet 5 mg PO DAILY Qty: 5 RF: 0 ranitidine HCl 75 mg tablet 75 mg PO BID Qty: 10 RF: 0 prednisolone 5 mg (21 tabs) tablets,dose pack See Label Instructions PO PER PKG DIR Qty: 21 RF: 0 Referrals: Nigel Galan MD [Primary Care Provider] - <Carol Smith DO - Last Filed: 07/02/18 09:06> Cosign ED Attending Svetlanaature Attestation: I was immediately available in the department for consultation. This documentation has been reviewed and I agree with assessment and plan. Supervised by Carol Smith DO
[2018-06-29 17:45] VITALS: BP 124/62; PULSE 65; RESP 16; TEMP 36.8; O2SAT 99
== END 2018-06-29 17:52 | disposition home or self-care (01) ==
PROVIDERS: Emergency Provider Nurse Practitioner Family; Family Provider Internal Medicine; PCP Internal Medicine
DX: T78.40XA Allergy, unspecified, initial encounter (principal)
CPT/HCPCS: 99282

== ENCOUNTER 2018-07-01 11:30 | Emergency (ER) | payer MEDICARE, SELFPAY ==
[2018-07-01 11:51] VITALS: BP 137/82; PULSE 75; RESP 16; O2SAT 100; BMI 22.8
--- NOTE | 2018-07-01 12:11 | PC.NURSE ---
frontal , right side of face red with swelling, ear lobes with redness and swelling, airway patent, clear appropriate speech,
--- NOTE | 2018-07-01 12:12 | ED.ALLEREA ---
HPI - Allergic Reaction <YANETH Morataya - Last Filed: 07/01/18 21:44> General Chief complaint: Allergic Reaction Stated complaint: MEDICATION REFILL Time Seen by Provider: 07/01/18 12:06 Source: patient Mode of arrival: ambulatory Limitations: no limitations History of Present Illness HPI narrative: 78-year-old female with history of anxiety and is a former smoker here for complaint of continued redness to her face over the past 4 days. She reports that her symptoms started after she was seen here in emergency room and had a abdominal CT for abdominal pain that is now resolved however she did receive contrast dye during the CT she was seen 2 days ago for the redness and was prescribed prednisone and Benadryl she states that the redness to her face has moved from 1 side to the other and then back again she states that the redness is pruritic and is nonpainful. She denies any fevers or chills. She has been taking the prednisone however she has not been taking 40 mg daily as prescribed she has only been taking 1 tablet. She has been using the Benadryl intermittently over this past couple of days. She denies any shortness of breath. No distress she is ambulatory into the emergency room. MD complaint: allergic reaction Related Data Home Medications Medication Instructions Recorded Confirmed bupropion HCl [Wellbutrin XL] 150 mg PO DAILY 06/29/18 06/29/18 diazepam 5 mg PO DAILY 06/29/18 06/29/18 metoprolol succinate 06/29/18 Previous Rx's Medication Instructions Recorded estradiol [Vagifem] 10 mcg VG DAILY #30 05/23/12 bupropion HCl 300 mg PO QDAY #30 tab 05/30/17 lithium carbonate 300 mg capsule 300 mg PO HS #30 cap 04/10/18 ondansetron 4 mg PO TID-QID PRN #30 tab 04/16/18 ondansetron 4 mg PO Q6-8H PRN #10 tab 06/28/18 diphenhydramine HCl 25 mg PO Q4-6H PRN #15 cap 06/29/18 prednisone 40 mg PO DAILY #8 tab 06/29/18 cetirizine 5 mg PO DAILY #5 tab 07/01/18 prednisolone See Label Instructions PO PER PKG 07/01/18 DIR #21 each ranitidine HCl 75 mg PO BID #10 tab 07/01/18 Allergies Allergy/AdvReac Type Severity Reaction Status Date / Time Sulfa (Sulfonamide Allergy Severe rash Verified 04/16/18 10:46 Antibiotics) [SULFA (SULFONAMIDE ANTIBIOTICS)] Penicillins [PENICILLINS] Allergy Unknown Verified 04/16/18 10:46 Iodinated Contrast- Oral and Allergy Facial Unverified 06/29/18 17:33 IV Dye swelling and rash codeine [CODEINE] AdvReac Mild upset Verified 04/16/18 10:46 stomach Review of Systems <YANETH Morataya - Last Filed: 07/01/18 21:44> Constitutional Denies chills, Denies fever(s), Denies lethargy and Denies weakness Eyes Denies change in vision, Denies eye discharge, Denies irritation and Denies loss of vision ENT Comments: Erythema and itching to the face Cardiovascular Denies chest pain, Denies irregular heart rhythm, Denies lightheadedness, Denies palpitations, Denies dyspnea, Denies dyspnea on exertion and Denies orthopnea Respiratory Denies cough, Denies dyspnea, Denies dyspnea on exertion and Denies wheezing Gastrointestinal Gastrointestinal: Denies abdominal pain, Denies change in bowel habits, Denies diarrhea, Denies nausea and Denies vomiting Musculoskeletal Denies back pain, Denies muscle weakness, Denies numbness and Denies tingling Integumentary/Breasts Denies pruritus, Denies erythema, Denies rash and Denies wounds Neurologic Denies confusion, Denies loss of vision, Denies numbness, Denies tingling and Denies weakness Psychiatric Denies anxiety, Denies confusion, Denies depression, Denies homicidal ideation and Denies suicidal ideation Endocrine Denies palpitations Hematologic/Lymphatic Denies easy bruising Allergic/Immunologic Denies wheezing Exam <YANETH Morataya - Last Filed: 07/01/18 21:44> Initial Vital Signs Initial Vital Signs: Vital Signs Pulse Rate 75 07/01/18 11:51 Respiratory Rate 16 07/01/18 11:51 Blood Pressure 137/82 07/01/18 11:51 Pulse Oximetry 100 07/01/18 11:51 Const General: cooperative and well developed Nutritional Appearance: well nourished Orientation: alert, awake, oriented x3 and not confused HENTX Face and sinus: other (Erythema and slight swelling to the right side of the face and forehead towards the ear. It is nontender. No increased temperature on palpation) Mouth: oral mucosae normal, oropharynx normal and moist mucous membranes Eyes Conjunctivae: conjunctivae normal Sclera: sclerae normal Pupils: PERRL EOM: EOM intact bilaterally Resp Effort & Inspection: normal respiratory effort, able to speak in complete sentences, no respiratory distress and no use of accessory muscles Auscultation: clear to auscultation bilaterally, no rales, no rhonchi and no wheezes Cardio Rate: regular rate Rhythm: regular rhythm Heart Sounds: no click, no gallops, no murmurs and no rubs Pulses: normal peripheral pulses Skin General: no rashes or lesions noted, No jaundice and No petechiae Neuro General: alert, oriented x3, gait normal and no focal motor deficits Speech: speech normal <Jelena Garvey DO - Last Filed: 07/04/18 07:14> Initial Vital Signs Initial Vital Signs: Vital Signs Pulse Rate 75 07/01/18 11:51 Respiratory Rate 16 07/01/18 11:51 Blood Pressure 137/82 07/01/18 11:51 Pulse Oximetry 100 07/01/18 11:51 Course <YANETH Morataya - Last Filed: 07/01/18 21:44> Vital Signs - 8 hr 07/01/18 11:51 Pulse Rate 75 Respiratory Rate 16 Blood Pressure 137/82 Pulse Oximetry 100 <Jelena Garvey DO - Last Filed: 07/04/18 07:14> Vital Signs - 8 hr 07/01/18 11:51 Pulse Rate 75 Respiratory Rate 16 Blood Pressure 137/82 Pulse Oximetry 100 MDM - Allergic Reaction <YANETH Morataya - Last Filed: 07/01/18 21:44> [facility] Narrative Medical decision making narrative: Erythema and swelling and itching to her face does not appear to be cellulitic/infectious due to non painful and pruritic and that rash has moved from 1 side of the face to the other and then back. Will continue to treat for allergic reaction and suspect that may be due to contrast dye. She is continued on a prednisone with a taper dose. Will switch from Benadryl to cetirizine. And will add ranitidine. Dicussed care with Dr. Garvey who agrees with diagnosis and care plan. Follow up with primary care provider later this week for re-evaluation. For any worsening symptoms return emergency room. Discharge Plan Departure Patient Disposition: Home Clinical Impression: Allergic reaction Discharge Date/Time: 07/01/18 12:59 Interventions: ED Discharge Assessment Last Done: 07/01/18 12:58 Instructions: DI for General Allergic Reactions Activity Restrictions/Additional Instructions: New prescriptions are provided to treat for allergic reaction use as directed stop taking the other medications in use the new prescriptions only as directed. Follow up with her primary care provider in the next few days for re-evaluation. For any worsening symptoms return to the emergency room. Prescriptions: New cetirizine 10 mg tablet 5 mg PO DAILY Qty: 5 RF: 0 ranitidine HCl 75 mg tablet 75 mg PO BID Qty: 10 RF: 0 prednisolone 5 mg (21 tabs) tablets,dose pack See Label Instructions PO PER PKG DIR Qty: 21 RF: 0 No Action estradiol [Vagifem] 10 MCG tablet 10 mcg VG DAILY Qty: 30 RF: 3 bupropion HCl 300 MG tablet extended release 24 hr 300 mg PO QDAY Qty: 30 RF: 2 lithium carbonate 300 mg capsule 300 mg PO HS Qty: 30 RF: 2 ondansetron 4 mg tablet,disintegrating 4 mg PO Q6-8H PRN (Reason: nausea and vomiting) Qty: 10 RF: 0 metoprolol succinate 25 mg tablet extended release 24 hr RF: 0 diazepam 5 mg tablet 5 mg PO DAILY RF: 0 bupropion HCl [Wellbutrin XL] 150 mg tablet extended release 24 hr 150 mg PO DAILY RF: 0 prednisone 20 mg tablet 40 mg PO DAILY Qty: 8 RF: 0 diphenhydramine HCl 25 mg capsule 25 mg PO Q4-6H PRN (Reason: allergic reaction) Qty: 15 RF: 0 ondansetron 4 mg tablet,disintegrating 4 mg PO TID-QID PRN (Reason: nausea and vomiting) Qty: 30 RF: 0 Referrals: Nigel Galan MD [Primary Care Provider] - <Jelena Garvey DO - Last Filed: 07/04/18 07:14> [facility] Attestation: I was immediately available in the department for consultation. Documentation has been reviewed. I agree with assessment and plan.
== END 2018-07-01 12:59 | disposition home or self-care (01) ==
PROVIDERS: Emergency Provider Nurse Practitioner Family; Family Provider Internal Medicine; PCP Internal Medicine
DX: T78.40XA Allergy, unspecified, initial encounter (principal)
CPT/HCPCS: 99282

== ENCOUNTER 2018-07-02 17:02 | Emergency (ER) | payer MEDICARE, SELFPAY ==
[2018-07-02 17:08] VITALS: BP 132/67; PULSE 91; RESP 18; TEMP 36.9; O2SAT 93
--- NOTE | 2018-07-02 18:14 | ED_ITS ---
HPI - Allergic Reaction General Chief complaint: Allergic Reaction Stated complaint: Allergic reaction/face swelling Time Seen by Provider: 07/02/18 17:06 Source: patient and family Mode of arrival: ambulatory Limitations: no limitations History of Present Illness HPI narrative: Patient is a 78-year-old female who I evaluated here in the emergency department approximately 1 week ago for abdominal symptoms. She had a CT scan with contrast at that time. That workup was unremarkable for any acute pathology. She returned within 48 hr after that with a rash around her face. At that time there was some concern that she may have had a reaction to the contrast dye. She was given steroids and Benadryl. She returned the next day and according to that note there was some concern as to whether not she was taking his medications appropriately. She was given a steroid Dosepak and was also changed to Zyrtec and Zantac. She returns again today for continued symptoms. No fevers. No new exposures. No problems breathing. Related Data Home Medications Medication Instructions Recorded Confirmed bupropion HCl [Wellbutrin XL] 150 mg PO DAILY 06/29/18 06/29/18 diazepam 5 mg PO DAILY 06/29/18 06/29/18 metoprolol succinate 06/29/18 Previous Rx's Medication Instructions Recorded estradiol [Vagifem] 10 mcg VG DAILY #30 05/23/12 bupropion HCl 300 mg PO QDAY #30 tab 05/30/17 lithium carbonate 300 mg capsule 300 mg PO HS #30 cap 04/10/18 ondansetron 4 mg PO TID-QID PRN #30 tab 04/16/18 ondansetron 4 mg PO Q6-8H PRN #10 tab 06/28/18 diphenhydramine HCl 25 mg PO Q4-6H PRN #15 cap 06/29/18 prednisone 40 mg PO DAILY #8 tab 06/29/18 cetirizine 5 mg PO DAILY #5 tab 07/01/18 prednisolone See Label Instructions PO PER PKG 07/01/18 DIR #21 each ranitidine HCl 75 mg PO BID #10 tab 07/01/18 Allergies Allergy/AdvReac Type Severity Reaction Status Date / Time Sulfa (Sulfonamide Allergy Severe rash Verified 04/16/18 10:46 Antibiotics) [SULFA (SULFONAMIDE ANTIBIOTICS)] Penicillins [PENICILLINS] Allergy Unknown Verified 04/16/18 10:46 Iodinated Contrast- Oral and Allergy Facial Unverified 06/29/18 17:33 IV Dye swelling and rash codeine [CODEINE] AdvReac Mild upset Verified 04/16/18 10:46 stomach Review of Systems Constitutional Denies fever(s) Eyes Denies blurry vision, Denies diplopia, Reports dry eyes and Reports itchy eyes ENT Ears, Nose, Mouth, and Throat: Denies neck pain, Denies nose pain, Denies sore throat and Denies throat swelling Cardiovascular Denies chest pain and Denies dyspnea Respiratory Denies dyspnea Musculoskeletal Denies myalgias, Denies arthralgias and Denies neck pain Integumentary/Breasts Reports rash Neurologic Denies behavioral changes Psychiatric Denies behavioral changes Allergic/Immunologic Reports itchy eyes and Denies throat swelling [facility] Social History Smoking Status: Former smoker Exam Initial Vital Signs Initial Vital Signs: Vital Signs Temperature 98.4 F 07/02/18 17:08 Pulse Rate 91 H 07/02/18 17:08 Respiratory Rate 18 07/02/18 17:08 Blood Pressure 132/67 07/02/18 17:08 Pulse Oximetry 93 07/02/18 17:08 Const General: cooperative, healthy appearing, comfortable, well developed, well groomed and No acute distress Orientation: alert, awake and oriented x3 HENMT Head: normal to inspection and normocephalic Eyes Pupils: PERRL EOM: EOM intact bilaterally Resp Effort & Inspection: normal respiratory effort Auscultation: clear to auscultation bilaterally Cardio Rate: regular rate Rhythm: regular rhythm Skin Other: Patient with a rash involving the bilateral face. It does seem to involve the eyelids but the eyes themselves are unremarkable. Left seems to be more red and puffy compared to the right. No vesicles. Does have some crusting. Seems to stop at the nasal labial folds bilaterally. Is not located around the mouth. Does have some on the anterior neck. No drainage or crusting. Neuro General: alert, awake and oriented x3 Extrem General: normal to inspection and capillary refill normal Psych Appearance: grossly normal and well kempt Course Vital Signs - 8 hr 07/02/18 17:08 07/02/18 18:58 Temperature 98.4 F Pulse Rate 91 H 69 Respiratory Rate 18 14 Blood Pressure 132/67 111/54 L Pulse Oximetry 93 98 MDM - Allergic Reaction MDM Narrative Medical decision making narrative: Patient now has symptoms approximately 1 week after receiving the IV contrast. I have low suspicion that this is what is causing her symptoms. No new exposures. After further discussion with the patient the it appears that she has not been taking the prednisone Dosepak. She does have puffiness around the eyes however the conjunctiva themselves look unremarkable. I do not feel that her symptoms today are consistent with a infection. Will hold on antibiotics. Unsure as the exact etiology. Considered other rare rheumatologic issues seeing as how she was just seen for abdominal pain however I do not feel that a workup here in the emergency department as needed. We did discuss the importance of taking these steroids as directed. Informed that they needed to contact her primary care doctor tomorrow for a follow-up. Her and her were given return precautions. They expressed understanding and agreement with plan. Discharge Plan Departure Patient Disposition: Home Clinical Impression: Rash Discharge Date/Time: 07/02/18 18:58 Interventions: ED Discharge Assessment Last Done: 07/02/18 18:58 Instructions: DI for Rash Activity Restrictions/Additional Instructions: I recommend that you make sure you are taking the steroid blister pack like we discussed. I also recommend that you use a cool washcloth like we discussed. Tomorrow contact her primary care doctor for a follow-up. Return to the emergency department for any new or worsening symptoms Prescriptions: No Action estradiol [Vagifem] 10 MCG tablet 10 mcg VG DAILY Qty: 30 RF: 3 bupropion HCl 300 MG tablet extended release 24 hr 300 mg PO QDAY Qty: 30 RF: 2 lithium carbonate 300 mg capsule 300 mg PO HS Qty: 30 RF: 2 ondansetron 4 mg tablet,disintegrating 4 mg PO Q6-8H PRN (Reason: nausea and vomiting) Qty: 10 RF: 0 metoprolol succinate 25 mg tablet extended release 24 hr RF: 0 diazepam 5 mg tablet 5 mg PO DAILY RF: 0 bupropion HCl [Wellbutrin XL] 150 mg tablet extended release 24 hr 150 mg PO DAILY RF: 0 prednisone 20 mg tablet 40 mg PO DAILY Qty: 8 RF: 0 diphenhydramine HCl 25 mg capsule 25 mg PO Q4-6H PRN (Reason: allergic reaction) Qty: 15 RF: 0 ondansetron 4 mg tablet,disintegrating 4 mg PO TID-QID PRN (Reason: nausea and vomiting) Qty: 30 RF: 0 cetirizine 10 mg tablet 5 mg PO DAILY Qty: 5 RF: 0 ranitidine HCl 75 mg tablet 75 mg PO BID Qty: 10 RF: 0 prednisolone 5 mg (21 tabs) tablets,dose pack See Label Instructions PO PER PKG DIR Qty: 21 RF: 0
[2018-07-02 18:58] VITALS: BP 111/54; PULSE 69; RESP 14; O2SAT 98
== END 2018-07-02 18:58 | disposition home or self-care (01) ==
PROVIDERS: Emergency Provider Emergency Medicine; Family Provider Internal Medicine; PCP Internal Medicine
DX: R21 Rash and other nonspecific skin eruption (principal)
CPT/HCPCS: 99282

== ENCOUNTER 2018-07-15 12:39 | Emergency (ER) | payer MEDICARE, SELFPAY ==
[2018-07-15 12:53] VITALS: BP 133/82; PULSE 70; RESP 13; TEMP 36.5; O2SAT 98
[2018-07-15 13:00] VITALS: BP 123/79; PULSE 69; RESP 16; O2SAT 99
--- NOTE | 2018-07-15 13:04 | ED.GENADULT ---
HPI - General Adult General Chief complaint: Nausea/Vomiting/Diarrhea Stated complaint: GI problems lower, not eating, tired Time Seen by Provider: 07/15/18 12:43 Source: patient and family Mode of arrival: ambulatory Limitations: no limitations History of Present Illness HPI narrative: 78-year-old female who I have evaluated here in the emergency department in the past for diarrhea and lower abdominal pain. During that visit she did have a CT scan performed which showed diverticulosis. I felt at that time is less likely diverticulitis. At that time her symptoms have been going on for least a month. Since that time she has followed up with her primary doctor with the most recent visit being yesterday. She was started on Augmentin yesterday for what I think is treatment of diverticulitis. She was also given equipment to obtain a stool sample which she has yet to be able to do. She states she has not had diarrhea in the past 2 days. Also having quite a bit of nausea and vomiting. Her states that she has not been eating very much. Also not been drinking very much because of this. She also becoming weaker. She does have a referral to see gastroenterology however the closest appointment is 2 weeks from now. Related Data Home Medications Medication Instructions Recorded Confirmed bupropion HCl [Wellbutrin XL] 150 mg PO DAILY 06/29/18 06/29/18 diazepam 5 mg PO DAILY 06/29/18 06/29/18 metoprolol succinate 06/29/18 Previous Rx's Medication Instructions Recorded estradiol [Vagifem] 10 mcg VG DAILY #30 05/23/12 bupropion HCl 300 mg PO QDAY #30 tab 05/30/17 lithium carbonate 300 mg capsule 300 mg PO HS #30 cap 04/10/18 ondansetron 4 mg PO TID-QID PRN #30 tab 04/16/18 ondansetron 4 mg PO Q6-8H PRN #10 tab 06/28/18 diphenhydramine HCl 25 mg PO Q4-6H PRN #15 cap 06/29/18 prednisone 40 mg PO DAILY #8 tab 06/29/18 cetirizine 5 mg PO DAILY #5 tab 07/01/18 prednisolone See Label Instructions PO PER PKG 07/01/18 DIR #21 each ranitidine HCl 75 mg PO BID #10 tab 07/01/18 ondansetron 4 mg PO Q6-8H PRN #20 tab 07/15/18 Allergies Allergy/AdvReac Type Severity Reaction Status Date / Time Sulfa (Sulfonamide Allergy Severe rash Verified 07/15/18 13:46 Antibiotics) [SULFA (SULFONAMIDE ANTIBIOTICS)] Penicillins [PENICILLINS] Allergy Unknown Verified 07/15/18 13:46 Iodinated Contrast- Oral and Allergy Facial Verified 07/15/18 13:46 IV Dye swelling and rash codeine [CODEINE] AdvReac Mild upset Verified 07/15/18 13:46 stomach Review of Systems Constitutional Denies fever(s), Denies frequent falls, Denies headache(s) and Reports weakness ENT Ears, Nose, Mouth, and Throat: Denies vertigo and Denies headache(s) Cardiovascular Denies chest pain and Denies dyspnea Respiratory Denies dyspnea Gastrointestinal Gastrointestinal: Denies abdominal pain, Denies melena, Denies constipation, Denies cramping, Reports diarrhea, Reports nausea and Reports vomiting Genitourinary Denies dysuria Musculoskeletal Denies myalgias and Denies arthralgias Integumentary/Breasts Comments: The rash which was on her face is much improved Neurologic Denies confusion, Denies vertigo, Denies frequent falls, Denies headache(s) and Reports weakness Psychiatric Denies confusion Hematologic/Lymphatic Comments: Not on anticoagulation Allergic/Immunologic Denies urticaria [facility] Social History Smoking Status: Former smoker Exam Initial Vital Signs Initial Vital Signs: Vital Signs Temperature 97.7 F 07/15/18 12:53 Pulse Rate 70 07/15/18 12:53 Respiratory Rate 13 07/15/18 12:53 Blood Pressure 133/82 07/15/18 12:53 Pulse Oximetry 98 07/15/18 12:53 Const General: cooperative, well developed, well groomed and No acute distress Orientation: alert, awake and oriented x3 HENMT Head: normal to inspection and normocephalic Resp Effort & Inspection: normal respiratory effort Auscultation: clear to auscultation bilaterally Cardio Rate: regular rate Rhythm: regular rhythm Pulses: radial pulses present GI Inspection: non-distended Palpation: soft, No firm and No tender Skin Lesions: no lesions Rashes: no rashes Neuro General: alert, awake and oriented x3 Cognition: normal cognition Speech: speech normal Extrem General: normal to inspection and capillary refill normal Psych Appearance: grossly normal and well kempt Course Orders Ordered: ED Orders 07/15/18 13:43 Complete Blood Count AUTO DIFF Stat Comprehensive Metabolic Panel Stat Lactate (Lactic Acid) Stat Lipase Stat Discontinued Medications Sodium Chloride (Normal Saline 0.9%) 1,000 mls @ 1,000 mls/hr IV BOLUS ONE Stop: 07/15/18 14:21 Last Infusion: 07/15/18 15:28 Dose: 0 mls/hr Admin: 07/15/18 13:48 Dose: 1,000 mls/hr Lorazepam (Ativan) 0.5 mg PO NOW ONE Stop: 07/15/18 13:23 Last Admin: 07/15/18 13:51 Dose: 0.5 mg Vital Signs - 8 hr 07/15/18 12:53 07/15/18 13:00 07/15/18 13:30 Temperature 97.7 F Pulse Rate 70 69 67 Respiratory Rate 13 16 16 Blood Pressure 133/82 Blood Pressure [Right Arm] 123/79 106/89 Pulse Oximetry 98 99 98 07/15/18 14:00 07/15/18 14:30 07/15/18 15:00 Temperature Pulse Rate 65 69 68 Respiratory Rate 16 16 Blood Pressure Blood Pressure [Right Arm] 146/66 H 140/75 148/72 H Pulse Oximetry 100 97 98 Medical Decision Making Lab Data Lab results reviewed: Yes I reviewed the patient's lab results. Result diagrams: 07/15/18 13:43 07/15/18 13:43 Lab Results 07/15/18 07/15/18 07/15/18 Range/Units 13:43 13:43 13:43 WBC 9.1 (4.5-11.0) X10^3/uL RBC 4.50 (4.0-5.2) X10^6/uL Hgb 13.8 (12.0-16.0) g/dL Hct 39.7 (36-46) % MCV 88.2 (80-100) fL MCH 30.7 (26-34) PG MCHC 34.8 (30-36) % RDW 13.9 (11.6-14.8) % Plt Count 486 H (150-400) X10^3/uL Neut % (Auto) 75.8 H (50-75) % Lymph % (Auto) 16.2 L (25-40) % Calhoun % (Auto) 6.3 (3-14) % Eos % (Auto) 1.1 L (2-4) % Baso % (Auto) 0.6 (0-2) % Neut # (Auto) 6900 (3658-4857) /uL Lymph # (Auto) 1500 (8518-4220) /uL [place]oun # (Auto) 600 (0-900) /uL Eos # (Auto) 100 (0-450) /uL Baso # (Auto) 100 (0-100) /uL Sodium 136 L (137-145) mmol/L Potassium 4.2 (3.4-5.1) mmol/L Chloride 103 (98-107) mmol/L Carbon Dioxide 22 (22-32) mmol/L BUN 12 (7-17) mg/dL Creatinine 0.90 (0.52-1.04) mg/dL Estimated GFR > 60.0 (>60) mL/min BUN/Creatinine Ratio 13.3 (6-22) Glucose 107 (80-110) mg/dL Lactate 1.3 (0.7-2.1) mmol/L Calcium 9.6 (8.4-10.2) mg/dL Total Bilirubin 1.3 (0.2-1.3) mg/dL AST 17 (14-36) IU/L ALT 16 (9-52) IU/L Alkaline Phosphatase 85 (38-126) U/L Total Protein 7.5 (6.3-8.2) g/dL Albumin 4.0 (3.5-5.0) g/dL Globulin 3.5 (1.7-4.1) g/dL Albumin/Globulin Ratio 1.1 (1.0-2.8) Lipase 52 (23-300) U/L [facility] Narrative Medical decision making narrative: Patient is here for evaluation of symptoms that have been going on for many weeks now. I have seen her in the past for these symptoms. She has a follow-up with Gastroenterology in 2 weeks. She states she has not had a bout of diarrhea in 2 days. Her states she has not been eating and drinking with the patient states that she has been eating. She was fairly tearful through much of the history and physical. I have a strong suspicion that there is a depression/anxiety component to this. The patient agreed. I do think that she does need to see Gastroenterology. Informed them that I would be unable to move this appointment up. I do not think that it needs to be moved up as her symptoms have been going on for many weeks. Her labs today are unremarkable. Will hold on a repeat CT scan. She is currently on antibiotics prescribed by her primary doctor for presumed diverticulitis. She has been unable to provide a stool sample which was ordered by her primary doctor which I think would be helpful in this situation. Will hold on further workup for now. Spent a long time discussing with the patient and her her a the importance of follow-up with they can do to help her symptoms. Will send home with nausea medication. They both expressed understanding and agreement with plan. Discharge Plan Departure Patient Disposition: Home Clinical Impression: Nausea Discharge Date/Time: 07/15/18 15:46 Interventions: ED Discharge Assessment Last Done: 07/15/18 15:45 Instructions: Nausea (Alternative Therapy) Activity Restrictions/Additional Instructions: I recommend you continue all of your medications. Take the nausea medication like we discussed. I do think it is important that you obtain a stool sample and take it to the lab as directed by your primary care doctor for further evaluation. On Tuesday I do recommend you contact the furrier designer that you have an appointment with to see if they can move your appointment up. This may not be possible however there can occasionally be cancellations in their schedule. I also recommend that you contact your primary doctor on Tuesday to let them know you are here in the emergency department. Prescriptions: New ondansetron 4 mg tablet,disintegrating 4 mg PO Q6-8H PRN (Reason: nausea and vomiting) Qty: 20 RF: 0 No Action estradiol [Vagifem] 10 MCG tablet 10 mcg VG DAILY Qty: 30 RF: 3 bupropion HCl 300 MG tablet extended release 24 hr 300 mg PO QDAY Qty: 30 RF: 2 lithium carbonate 300 mg capsule 300 mg PO HS Qty: 30 RF: 2 ondansetron 4 mg tablet,disintegrating 4 mg PO Q6-8H PRN (Reason: nausea and vomiting) Qty: 10 RF: 0 metoprolol succinate 25 mg tablet extended release 24 hr RF: 0 diazepam 5 mg tablet 5 mg PO DAILY RF: 0 bupropion HCl [Wellbutrin XL] 150 mg tablet extended release 24 hr 150 mg PO DAILY RF: 0 prednisone 20 mg tablet 40 mg PO DAILY Qty: 8 RF: 0 diphenhydramine HCl 25 mg capsule 25 mg PO Q4-6H PRN (Reason: allergic reaction) Qty: 15 RF: 0 ondansetron 4 mg tablet,disintegrating 4 mg PO TID-QID PRN (Reason: nausea and vomiting) Qty: 30 RF: 0 cetirizine 10 mg tablet 5 mg PO DAILY Qty: 5 RF: 0 ranitidine HCl 75 mg tablet 75 mg PO BID Qty: 10 RF: 0 prednisolone 5 mg (21 tabs) tablets,dose pack See Label Instructions PO PER PKG DIR Qty: 21 RF: 0
[2018-07-15 13:30] VITALS: BP 106/89; PULSE 67; RESP 16; O2SAT 98
[2018-07-15] MEDS: SODIUM CHLORIDE 0.9% 1,000 ML 1000 ML IV (13:48)
[2018-07-15] MEDS: LORazepam 0.5 MG TABLET PO (13:51)
--- NOTE | 2018-07-15 13:52 | PC.NURSE ---
intermittent nausea and vomiting, diarrhea , since june 28.
[2018-07-15 14:00] VITALS: BP 143/66; BP 146/66; PULSE 65; PULSE 66; RESP 16; O2SAT 100; O2SAT 99
[2018-07-15 14:02] LABS: Add Manual Diff / Slide Review NO; Basophils Absolute Auto 100 /uL (0-100); Basophils Percent Auto 0.6 % (0-2); Eosinophils Absolute Auto 100 /uL (0-450); Eosinophils Percent Auto 1.1 % (2-4); Hematocrit 39.7 % (36-46); Hemoglobin 13.8 g/dL (12.0-16.0); Lymphocytes Absolute Auto 1500 /uL (1100-4500); Lymphocytes Percent Auto 16.2 % (25-40); Mean Corpuscular HGB Conc 34.8 % (30-36); Mean Corpuscular Hemoglobin 30.7 PG (26-34); Mean Corpuscular Volume 88.2 fL (80-100); Monocytes Absolute Auto 600 /uL (0-900); Monocytes Percent Auto 6.3 % (3-14); Neutrophils Absolute Auto 6900 /uL (1500-7000); Neutrophils Percent Auto 75.8 % (50-75); Platelet Count 486 X10^3/uL (150-400); Red Cell Distribution Width 13.9 % (11.6-14.8); White Blood Cell Count 9.1 X10^3/uL (4.5-11.0)
[2018-07-15 14:14] LABS: Alanine Aminotransferase 16 IU/L (9-52); Albumin Globulin Ratio 1.1 (1.0-2.8); Alkaline Phosphatase 85 U/L (38-126); Aspartate Aminotransferase 17 IU/L (14-36); BUN Creatinine Ratio 13.3 (6-22); Bilirubin Total 1.3 mg/dL (0.2-1.3); Blood Urea Nitrogen 12 mg/dL (7-17); Calcium 9.6 mg/dL (8.4-10.2); Carbon Dioxide 22 mmol/L (22-32); Chloride 103 mmol/L (98-107); Estimated Glomerular Filt Rate > 60.0 mL/min (>60); Globulin 3.5 g/dL (1.7-4.1); Glucose 107 mg/dL (80-110); HEMOLYSIS 33 (0-50); Lipase 52 U/L (23-300); Potassium 4.2 mmol/L (3.4-5.1); Sodium 136 mmol/L (137-145); Total Protein 7.5 g/dL (6.3-8.2)
[2018-07-15 14:15] LABS: Lactate (Lactic Acid) 1.3 mmol/L (0.7-2.1)
[2018-07-15 14:30] VITALS: BP 140/75; PULSE 69; RESP 16; O2SAT 97
[2018-07-15 15:00] VITALS: BP 148/72; PULSE 68; O2SAT 98
== END 2018-07-15 15:46 | disposition home or self-care (01) ==
PROVIDERS: Emergency Provider Emergency Medicine; PCP Internal Medicine
DX: R11.0 Nausea (principal)
CPT/HCPCS: 36591; 80053; 83605; 83690; 85025; 96360; 96361; 99283; 99284

== ENCOUNTER → 2018-07-16 14:21 | Outpatient (REF) | payer MEDICARE, SELFPAY ==
[2018-07-16 15:59] LABS: Campylobacter Not Detected (Not Detect); Clostridium difficile toxin AB Not Detected (Not Detect); Cryptosporidium Not Detected (Not Detect); Cyclospora cayetanensis Not Detected (Not Detect); Entamoeba histolytica Not Detected (Not Detect); Enteroaggregative E.coli Not Detected (Not Detect); Enteropathogenic E.coli Not Detected (Not Detect); Enterotoxigenic E.coli It/st Not Detected (Not Detect); Giardia lamblia Not Detected (Not Detect); Plesiomonsa shigelloides Not Detected (Not Detect); Salmonella Not Detected (Not Detect); Shiga-like toxin-prod E.coli Not Detected (Not Detect); Shigella/Enteroinvasive E.coli Not Detected (Not Detect); Vibrio Not Detected (Not Detect); Vibrio cholerae Not Detected (Not Detect); Yersinia enterocolitica Not Detected (Not Detect)
[2018-07-16 16:00] LABS: Adenovirus F 40/41 Not Detected (Not Detect); Astrovirus Not Detected (Not Detect); Norovirus GI/GII Not Detected (Not Detect); Rotavirus A Not Detected (Not Detect)
== END ==
LOC: LAB 14:21
PROVIDERS: PCP Internal Medicine; Visit Provider Physician Assistant
DX: R19.7 Diarrhea, unspecified (principal); D84.9 Immunodeficiency, unspecified
CPT/HCPCS: 87507

== ENCOUNTER → 2018-07-22 10:55 | Outpatient (CLI) | payer MEDICARE, SELFPAY ==
[2018-07-22 13:07] LABS: Clostridium Difficile Tox PCR Negative for C.diff
== END ==
PROVIDERS: PCP Internal Medicine; Visit Provider Student in an Organized Health Care Education/Training Program
DX: R11.0 Nausea (principal); R19.7 Diarrhea, unspecified
CPT/HCPCS: 86317; 87015; 87045; 87177; 87205; 87427; 87493; 87899

== ENCOUNTER → 2018-11-23 12:17 | Outpatient (CLI) | payer MEDICARE, SELFPAY ==
--- NOTE | 2018-11-23 | DI.MG.S_ITS ---
BILATERAL DIGITAL SCREENING MAMMOGRAM 3D/2D WITH CAD: 11/23/2018 CLINICAL: Routine screening. Comparison is made to exams dated: 04/08/2016 mammogram, 12/30/2014 mammogram, and 12/28/2013 mammogram - [facility]. The tissue of both breasts is predominantly fatty. Current study was also evaluated with a Computer Aided Detection (CAD) system. There are benign calcifications in both breasts. There also is a benign biopsy clip in the right breast. No significant masses, calcifications, or other findings are seen in either breast. There has been no significant interval change. IMPRESSION: There is no mammographic evidence of malignancy. A 1 year screening mammogram is recommended. This exam was interpreted at Station ID: [id number]. NOTE: For mammograms, a report in lay terms will be sent to the patient. Approximately 15% of breast malignancies will not be visualized mammographically. In the management of a palpable breast mass, a negative mammogram must not discourage biopsy of a clinically suspicious lesion. Electronically Signed By: Helder grigsby/fadi:11/23/2018 17:16:53 letter sent: Normal Exam ACR BI-RADS Category 2: Benign Finding(s) [id number]
== END ==
PROVIDERS: PCP Nurse Practitioner Family; Visit Provider Nurse Practitioner Family
DX: Z12.31 Encounter for screening mammogram for malignant neoplasm of breast (principal); M81.0 Age-related osteoporosis without current pathological fracture; Z78.0 Asymptomatic menopausal state
CPT/HCPCS: 77063; 77067; 77080

== ENCOUNTER → 2019-01-16 14:19 | Outpatient (CLI) | payer MEDICARE, SELFPAY ==
[2019-01-22 15:08] LABS: Fecal Fat, Qualitative NORMAL
== END ==
PROVIDERS: PCP Nurse Practitioner Family; Visit Provider Student in an Organized Health Care Education/Training Program
DX: A04.5 Campylobacter enteritis (principal); R15.2 Fecal urgency; R19.7 Diarrhea, unspecified
CPT/HCPCS: 82710; 87045; 87177; 87329; 87493; 87899

== ENCOUNTER → 2019-02-23 12:40 | Outpatient (CLI) | payer MEDICARE, SELFPAY ==
--- NOTE | 2019-02-23 | DI.RAD.S_ITS ---
PROCEDURE: XR THORACIC SPINE 2V INDICATIONS: LOW BACK PAIN TECHNIQUE: 3 views of the thoracic spine were acquired. COMPARISON: None. FINDINGS: Bones: No acute fractures or dislocations. No suspicious bony lesions. 12 pairs of ribs are noted, and appear intact where visualized. Mild multilevel thoracic spondylosis most pronounced in the mid thoracic spine. No acute compression deformities. Soft tissues: No paravertebral stripe thickening. Right upper abdominal surgical clips compatible with prior cholecystectomy. Visualized portions of the lungs are clear. IMPRESSION: Thoracic spine without acute fracture. Multilevel thoracic spondylosis most pronounced in the mid thoracic spine. Dictated by: Helder Acosta M.D. on 02/23/2019 at 14:48 Approved by: Helder Acosta M.D. on 02/23/2019 at 14:50
--- NOTE | 2019-02-23 | DI.RAD.S_ITS ---
PROCEDURE: XR LUMBAR SPINE 2-3V INDICATIONS: LOW BACK PAIN TECHNIQUE: 3 views of the lumbar spine were acquired. COMPARISON: [facility], , L-SPINE 2-3 VIEWS, 01/25/2014, 11:30. FINDINGS: Bones: 5 [id number] vertebrae are present. There is stable appearance of grade 1 anterolisthesis of L5 on S1 likely related to pars defects at this level. No acute vertebral body compression fractures. Relative stable appearance of multilevel lumbar spondylosis. Stable dextrocurvature of the lumbar spine centered at L2. No suspicious bony lesions. Soft tissues: Overlying bowel gas pattern is normal. No suspicious soft tissue calcifications. Surgical clips are again noted in the right upper abdomen, right lower pelvis, and bilateral tubal ligation clips are also present. IMPRESSION: Stable radiographic appearance of multilevel lumbar spondylosis, dextrocurvature of the lumbar spine, and grade 1 anterolisthesis of L5 on S1 from likely pars defects at this level. Dictated by: Helder Acosta M.D. on 02/23/2019 at 14:44 Approved by: Helder Acosta M.D. on 02/23/2019 at 14:48
[2019-02-23 13:38] LABS: Alanine Aminotransferase 16 IU/L (9-52); Albumin 4.4 g/dL (3.5-5.0); Albumin Globulin Ratio 1.5 (1.0-2.8); Alkaline Phosphatase 78 U/L (38-126); Aspartate Aminotransferase 24 IU/L (14-36); BUN Creatinine Ratio 12.5 (6-22); Bilirubin Total 1.4 mg/dL (0.2-1.3); Blood Urea Nitrogen 15 mg/dL (7-17); Calcium 9.6 mg/dL (8.4-10.2); Carbon Dioxide 26 mmol/L (22-32); Chloride 103 mmol/L (98-107); Estimated Glomerular Filt Rate 43.3 mL/min (>60); Glucose 95 mg/dL (80-110); HEMOLYSIS < 15 (0-50); Potassium 4.4 mmol/L (3.4-5.1); Sodium 141 mmol/L (137-145); Total Protein 7.4 g/dL (6.3-8.2)
[2019-02-23 13:59] LABS: Add Manual Diff / Slide Review NO; Basophils Absolute Auto 0 /uL (0-100); Basophils Percent Auto 0.4 % (0-2); Eosinophils Absolute Auto 200 /uL (0-450); Eosinophils Percent Auto 2.7 % (2-4); Hematocrit 39.4 % (36-46); Hemoglobin 13.6 g/dL (12.0-16.0); Lymphocytes Absolute Auto 1300 /uL (1100-4500); Lymphocytes Percent Auto 22.7 % (25-40); Mean Corpuscular HGB Conc 34.6 % (30-36); Mean Corpuscular Hemoglobin 31.5 PG (26-34); Mean Corpuscular Volume 90.9 fL (80-100); Monocytes Absolute Auto 400 /uL (0-900); Monocytes Percent Auto 7.4 % (3-14); Neutrophils Absolute Auto 3800 /uL (1500-7000); Neutrophils Percent Auto 66.8 % (50-75); Platelet Count 294 X10^3/uL (150-400); Red Blood Cell Count 4.34 X10^6/uL (4.0-5.2); Red Cell Distribution Width 13.9 % (11.6-14.8); White Blood Cell Count 5.7 X10^3/uL (4.5-11.0)
[2019-02-23 18:42] LABS: Free T4, Direct Thyroxine 0.96 ng/dL (0.78-2.19)
[2019-02-23 18:56] LABS: Thyroid Stimulating Hormone 3.19 uIU/mL (0.47-4.68)
[2019-02-23 19:20] LABS: Lithium 1.7 mmol/L (0.6-1.2)
== END ==
PROVIDERS: Family Provider Nurse Practitioner Psychiatric/Mental Health; PCP Nurse Practitioner Family; Visit Provider Nurse Practitioner Family
DX: F33.9 Major depressive disorder, recurrent, unspecified (principal)
CPT/HCPCS: 36415; 72070; 72100; 80053; 80178; 84439; 84443; 85025

== ENCOUNTER 2019-04-08 10:25 | Emergency (ER) | payer MEDICARE, SELFPAY ==
[2019-04-08 10:30] VITALS: BP 142/80; PULSE 74; RESP 14; O2SAT 99
[2019-04-08 11:56] VITALS: BP 155/77; PULSE 71; RESP 18; O2SAT 100
[2019-04-08] MEDS: SODIUM CHLORIDE 0.9% 1,000 ML 1000 ML IV (12:00)
[2019-04-08 12:24] LABS: Add Manual Diff / Slide Review NO; Basophils Absolute Auto 100 /uL (0-100); Eosinophils Absolute Auto 100 /uL (0-450); Hematocrit 37.5 % (36-46); Hemoglobin 13.1 g/dL (12.0-16.0); Lymphocytes Absolute Auto 1200 /uL (1100-4500); Lymphocytes Percent Auto 16.4 % (25-40); Mean Corpuscular HGB Conc 34.9 % (30-36); Mean Corpuscular Hemoglobin 31.3 PG (26-34); Mean Corpuscular Volume 89.8 fL (80-100); Monocytes Absolute Auto 700 /uL (0-900); Monocytes Percent Auto 9.5 % (3-14); Neutrophils Absolute Auto 5500 /uL (1500-7000); Neutrophils Percent Auto 72.1 % (50-75); Platelet Count 285 X10^3/uL (150-400); Red Blood Cell Count 4.18 X10^6/uL (4.0-5.2); Red Cell Distribution Width 12.9 % (11.6-14.8); White Blood Cell Count 7.6 X10^3/uL (4.5-11.0)
[2019-04-08 12:34] LABS: Alanine Aminotransferase 14 IU/L (9-52); Albumin 4.3 g/dL (3.5-5.0); Albumin Globulin Ratio 1.4 (1.0-2.8); Alkaline Phosphatase 109 U/L (38-126); Aspartate Aminotransferase 24 IU/L (14-36); Bilirubin Total 0.8 mg/dL (0.2-1.3); Blood Urea Nitrogen 23 mg/dL (7-17); Calcium 9.4 mg/dL (8.4-10.2); Carbon Dioxide 25 mmol/L (22-32); Chloride 106 mmol/L (98-107); Estimated Glomerular Filt Rate 53.5 mL/min (>60); Globulin 3.1 g/dL (1.7-4.1); Glucose 98 mg/dL (80-110); HEMOLYSIS 31 (0-50); Potassium 4.7 mmol/L (3.4-5.1); Sodium 141 mmol/L (137-145); Total Protein 7.4 g/dL (6.3-8.2)
--- NOTE | 2019-04-08 13:04 | DI.CT.S_ITS ---
PROCEDURE: CT ABDOMEN PELVIS WO CON INDICATIONS: LLQ abd pain TECHNIQUE: Noncontrast 5 mm thick sections acquired from the diaphragms to the symphysis. 5 mm coronal and sagittal reformats were then performed. For radiation dose reduction, the following was used: automated exposure control, adjustment of mA and/or kV according to patient size. COMPARISON: [facility], CT, CT ABDOMEN PELVIS W CON, 06/27/2018, 22:51. FINDINGS: Image quality: Excellent. ABDOMEN: Lung bases: Dependent atelectasis in the lung bases. Lung bases otherwise clear. Heart size is normal. Hypoattenuation of the cardiac blood pool. Multivessel coronary artery calcifications. Solid organs: Liver is normal in size with multiple simple fluid density cysts measuring up to 1.6 cm. Gallbladder surgically absent. Pancreas is normal in contour. Spleen is normal in size. No adrenal nodules. Kidneys are normal in size, without hydronephrosis. Peritoneum and bowel: Small hiatal hernia. Unremarkable small bowel. There are extensive diverticula in the sigmoid colon with associated superficial bowel thickening. There is also small amount of pericolonic fatty stranding adjacent to a small region of the colon adjacent to diverticula (series 4, image 31). Its pattern is similar to previous on 06/27/2018 though more pronounced. There are also scattered diverticula of the proximal colon. Nodes and vessels: No retroperitoneal or mesenteric adenopathy by size criteria. Aorta and inferior vena cava are normal in caliber. Scattered vascular calcification of the abdominal aorta. Miscellaneous: Very small fat containing umbilical hernia. PELVIS: Genitourinary: Bladder wall thickness is normal. Miscellaneous: No inguinal hernias or adenopathy. Bones: No suspicious bony lesions. Degenerative changes of the spine. Bilateral L5 pars defects with grade 1 anterolisthesis. No vertebral body compression fractures. IMPRESSION: Diverticulosis and circumferential thickening of the sigmoid colon similar in pattern the more pronounced than on the CT scan performed on 06/27/2018 which is compatible with uncomplicated diverticulitis versus segmental infectious/inflammatory colitis. Hypoattenuation the cardiac blood pool. Correlate with hemoglobin level for potential anemia. Other chronic findings as described above. Dictated by: Jason Chappell M.D. on 04/08/2019 at 13:06 Approved by: Jason Chappell M.D. on 04/08/2019 at 13:27
[2019-04-08 13:11] VITALS: BP 130/68; PULSE 58; O2SAT 100
--- NOTE | 2019-04-08 13:50 | ED.ABDPAIN ---
HPI - Abdominal Pain General Chief Complaint: Abdominal Pain Stated Complaint: pain in pelvic area getting worse and urinary disc Time Seen by Provider: 04/08/19 10:48 Source: patient Mode of arrival: Ambulatory Limitations: no limitations History of Present Illness HPI narrative: Patient comes emergency department complaining of lower abdominal pain for the last few days. Patient states she has not had any fever or nausea vomiting. She states that her last bowel movement was about 3 days ago, but this is fairly normal for her. She states that she has been having urinary frequency without dysuria. No cough, shortness of breath, or chest pain. no blood in her stools. No hematuria. No other complaints at this time. Related Data Home Medications Medication Instructions Recorded Confirmed diazepam 5 mg PO DAILY 06/29/18 03/02/19 metoprolol succinate 25 mg 25 mg PO DAILY tab 03/02/19 03/02/19 tablet,extended release 24 hr alendronate 70 mg tablet 70 mg PO QWEEK 03/08/19 calcium carbonate 500 mg calcium 1,500 mg PO DAILY tab 03/08/19 (1,250 mg) tablet magnesium oxide 400 mg PO DAILY 03/08/19 Previous Rx's Medication Instructions Recorded bupropion HCl 300 mg PO QDAY #30 tab 05/30/17 cetirizine 5 mg PO DAILY #5 tab 07/01/18 hydrocodone-acetaminophen [[place]] 1 tab PO Q6H PRN #14 tab 04/08/19 levofloxacin [Levaquin] 500 mg PO DAILY #10 tab 04/08/19 metronidazole [Flagyl] 500 mg PO BID #20 tab 04/08/19 ondansetron 4 mg PO Q8H PRN #14 tab 04/08/19 Allergies Allergy/AdvReac Type Severity Reaction Status Date / Time Sulfa (Sulfonamide Allergy Severe rash Verified 07/15/18 13:46 Antibiotics) [SULFA (SULFONAMIDE ANTIBIOTICS)] Penicillins [PENICILLINS] Allergy Unknown Verified 07/15/18 13:46 Iodinated Contrast Media Allergy Facial Verified 07/15/18 13:46 [Iodinated Contrast- Oral swelling and IV Dye] and rash codeine [CODEINE] AdvReac Mild upset Verified 07/15/18 13:46 stomach Review of Systems Constitutional Constitutional: Denies chills, Denies fatigue, Denies fever(s), Denies frequent falls, Denies lethargy and Denies weakness Eyes Eyes: Denies change in vision, Denies eye discharge, Denies irritation and Denies loss of vision ENT Ears, Nose, Mouth, and Throat: Denies change in voice, Denies dizziness, Denies neck pain, Denies sore throat and Denies throat swelling Cardiovascular Cardiovascular: Denies chest pain, Denies irregular heart rhythm, Denies lightheadedness, Denies palpitations, Denies dyspnea, Denies dyspnea on exertion and Denies orthopnea Respiratory Respiratory: Denies cough, Denies dyspnea, Denies dyspnea on exertion and Denies wheezing Gastrointestinal Gastrointestinal: Reports abdominal pain, Denies change in bowel habits, Denies diarrhea, Denies nausea and Denies vomiting Genitourinary Genitourinary: Denies hematuria, Denies flank pain, Denies urinary incontinence and Denies urinary urgency Musculoskeletal Musculoskeletal: Denies back pain, Denies muscle weakness, Denies neck pain, Denies numbness and Denies tingling Integumentary/Breasts Skin/Breast: Denies pruritus, Denies erythema, Denies rash and Denies wounds Neurologic Neurologic: Denies behavioral changes, Denies confusion, Denies dizziness, Denies frequent falls, Denies loss of vision, Denies numbness, Denies tingling and Denies weakness Psychiatric Psychiatric: Denies anxiety, Denies behavioral changes, Denies confusion, Denies depression, Denies homicidal ideation and Denies suicidal ideation Endocrine Endocrine: Denies fatigue, Denies flushing and Denies palpitations Hematologic/Lymphatic Hematologic/Lymphatic: Denies easy bruising Allergic/Immunologic Allergic/Immunologic: Denies urticaria, Denies throat swelling and Denies wheezing Patient History Medical History Allergic reaction (Acute) Anxiety disorder, unspecified (Chronic) Major depressive disorder, recurrent, in partial remission (Acute) PTSD (post-traumatic stress disorder) (Acute) Surgical History Status post cholecystectomy Social History Smoking Status: Never smoker Social History Smoking Status: Never smoker alcohol intake frequency: 0-2 drinks per day Substance Use Type: does not use Exam Initial Vital Signs Initial Vital Signs: Vital Signs Pulse Rate 74 04/08/19 10:30 Respiratory Rate 14 04/08/19 10:30 Blood Pressure 142/80 H 04/08/19 10:30 Pulse Oximetry 99 04/08/19 10:30 Const General: cooperative and well developed Nutritional Appearance: well nourished Orientation: alert, awake, oriented x3 and not confused [facility] Head: normocephalic and atraumatic Ears: external ears normal Nose: external nose normal and No nasal discharge Face and sinus: face symmetric and No dry mucous membranes Mouth: oral mucosae normal and moist mucous membranes Teeth and gingiva: dentition normal Eyes General: appearance normal, both eyes and all related structures Eyelids: eyelids normal Conjunctivae: conjunctivae normal Sclera: sclerae normal Pupils: PERRL EOM: EOM intact bilaterally Neck Neck: normal visual inspection, trachea midline, No lymphadenopathy, No midline deformity and No JVD Lymphatic: No lymphedema Chest Chest: normal inspection of the chest Resp Effort & Inspection: normal respiratory effort, able to speak in complete sentences, no respiratory distress and no use of accessory muscles Auscultation: clear to auscultation bilaterally, no rales, no rhonchi and no wheezes Cardio Rate: regular rate Rhythm: regular rhythm Heart Sounds: no click, no gallops, no murmurs and no rubs Pulses: normal peripheral pulses GI Inspection: non-distended Palpation: soft, no hepatosplenomegaly, No guarding, No pulsatile mass and tender (Moderate LLQ, mild suprapubic and bilateral UQ) Back/Spine/Pelvis Back: No CVA tenderness Cervical Spine: cervical ROM normal and No pain with cervical ROM Thoracic/Lumbar Spine: thoracic and lumbar spine normal to inspection Skin General: no rashes or lesions noted, No jaundice and No petechiae Neuro General: alert, oriented x3, gait normal and no focal motor deficits Speech: speech normal Extrem General: full ROM, no clubbing, cyanosis or edema, no pedal edema and no calf tenderness Psych Appearance: well kempt Mental Status: mental status grossly normal Attitude: cooperative Thought Content: normal and suicidality Judgment: judgment good Course Course Course Narrative: Patient was worked up with labs, urinalysis, and CT scan of the abdomen and pelvis. CT was positive for mild diverticulitis. White blood cell count was normal. The patient was started on Levaquin and Flagyl in the emergency department, and was also treated symptomatically with IV fluids, Zofran, and Toradol. We have discussed home management of symptoms, as well as the usual indications for return. Orders Ordered: ED Orders 04/08/19 11:22 Complete Blood Count AUTO DIFF Stat Comprehensive Metabolic Panel Stat 04/08/19 13:04 CT abdomen pelvis wo con Stat Discontinued Medications Sodium Chloride (Normal Saline 0.9%) 1,000 mls @ 1,000 mls/hr IV BOLUS ONE Stop: 04/08/19 12:21 Last Infusion: 04/08/19 13:12 Dose: 0 mls/hr Documented by: Admin: 04/08/19 12:00 Dose: 1,000 mls/hr Documented by: JUANCARLOS Ketorolac Tromethamine (Toradol) 30 mg IV NOW ONE Stop: 04/08/19 16:12 Last Admin: 04/08/19 16:14 Dose: 30 mg Documented by: JUANCARLOS Levofloxacin (Levaquin) 500 mg PO NOW ONE Stop: 04/08/19 15:36 Last Admin: 04/08/19 15:55 Dose: 500 mg Documented by: JUANCARLOS Metronidazole (Metronidazole) 500 mg PO NOW ONE Stop: 04/08/19 15:36 Last Admin: 04/08/19 15:55 Dose: 500 mg Documented by: JUANCARLOS Vital Signs Vital signs: Vital Signs - 8 hr 04/08/19 11:56 04/08/19 13:11 04/08/19 14:41 Pulse Rate 71 58 L 65 Respiratory Rate 18 Blood Pressure [Right Arm] 155/77 H 130/68 133/71 Pulse Oximetry 100 100 100 04/08/19 15:42 Pulse Rate 64 Respiratory Rate Blood Pressure [Right Arm] 131/77 Pulse Oximetry 99 MDM - Abdominal Pain Medical Records Attestation: I reviewed the patient's medical records. Lab Data Attestation: I reviewed the patient's lab results. Result diagrams: 04/08/19 11:22 04/08/19 11:22 Labs: Lab Results 04/08/19 04/08/19 Range/Units 11:22 11:22 WBC 7.6 (4.5-11.0) X10^3/uL RBC 4.18 (4.0-5.2) X10^6/uL Hgb 13.1 (12.0-16.0) g/dL Hct 37.5 (36-46) % MCV 89.8 (80-100) fL MCH 31.3 (26-34) PG MCHC 34.9 (30-36) % RDW 12.9 (11.6-14.8) % Plt Count 285 (150-400) X10^3/uL Neut % (Auto) 72.1 (50-75) % Lymph % (Auto) 16.4 L (25-40) % Hand % (Auto) 9.5 (3-14) % Eos % (Auto) 1.0 L (2-4) % Baso % (Auto) 1.0 (0-2) % Neut # (Auto) 5500 (4868-4198) /uL Lymph # (Auto) 1200 (7561-2473) /uL Hand # (Auto) 700 (0-900) /uL Eos # (Auto) 100 (0-450) /uL Baso # (Auto) 100 (0-100) /uL Sodium 141 (137-145) mmol/L Potassium 4.7 (3.4-5.1) mmol/L Chloride 106 (98-107) mmol/L Carbon Dioxide 25 (22-32) mmol/L BUN 23 H (7-17) mg/dL Creatinine 1.00 (0.52-1.04) mg/dL Estimated GFR 53.5 L (>60) mL/min BUN/Creatinine Ratio 23.0 H (6-22) Glucose 98 (80-110) mg/dL Calcium 9.4 (8.4-10.2) mg/dL Total Bilirubin 0.8 (0.2-1.3) mg/dL AST 24 (14-36) IU/L ALT 14 (9-52) IU/L Alkaline Phosphatase 109 (38-126) U/L Total Protein 7.4 (6.3-8.2) g/dL Albumin 4.3 (3.5-5.0) g/dL Globulin 3.1 (1.7-4.1) g/dL Albumin/Globulin Ratio 1.4 (1.0-2.8) Point of care testing: Urine Dip Bedside Urine Glucose Negative Bedside Urine Bilirubin - Negative Bedside Urine Ketone - Negative Urine Specific [place] 1.015 Bedside Urine Occult Blood - Negative Bedside Urine pH 6.0 Bedside Urine Protein - Negative Bedside Urine Urobilinogen - Negative Bedside Urine Nitrite - Negative Bedside Urine Leukocytes - Negative Esterase Imaging Data CT scan - abdomen: Radiologist's impression: PROCEDURE: CT ABDOMEN PELVIS WO CON INDICATIONS: LLQ abd pain TECHNIQUE: Noncontrast 5 mm thick sections acquired from the diaphragms to the symphysis. 5 mm coronal and sagittal reformats were then performed. For radiation dose reduction, the following was used: automated exposure control, adjustment of mA and/or kV according to patient size. COMPARISON: [facility], CT, CT ABDOMEN PELVIS W CON, 06/27/2018, 22:51. FINDINGS: Image quality: Excellent. ABDOMEN: Lung bases: Dependent atelectasis in the lung bases. Lung bases otherwise clear. Heart size is normal. Hypoattenuation of the cardiac blood pool. Multivessel coronary artery calcifications. Solid organs: Liver is normal in size with multiple simple fluid density cysts measuring up to 1.6 cm. Gallbladder surgically absent. Pancreas is normal in contour. Spleen is normal in size. No adrenal nodules. Kidneys are normal in size, without hydronephrosis. Peritoneum and bowel: Small hiatal hernia. Unremarkable small bowel. There are extensive diverticula in the sigmoid colon with associated superficial bowel thickening. There is also small amount of pericolonic fatty stranding adjacent to a small region of the colon adjacent to diverticula (series 4, image 31). Its pattern is similar to previous on 06/27/2018 though more pronounced. There are also scattered diverticula of the proximal colon. Nodes and vessels: No retroperitoneal or mesenteric adenopathy by size criteria. Aorta and inferior vena cava are normal in caliber. Scattered vascular calcification of the abdominal aorta. Miscellaneous: Very small fat containing umbilical hernia. PELVIS: Genitourinary: Bladder wall thickness is normal. Miscellaneous: No inguinal hernias or adenopathy. Bones: No suspicious bony lesions. Degenerative changes of the spine. Bilateral L5 pars defects with grade 1 anterolisthesis. No vertebral body compression fractures. IMPRESSION: Diverticulosis and circumferential thickening of the sigmoid colon similar in pattern the more pronounced than on the CT scan performed on 06/27/2018 which is compatible with uncomplicated diverticulitis versus segmental infectious/inflammatory colitis. Hypoattenuation the cardiac blood pool. Correlate with hemoglobin level for potential anemia. Other chronic findings as described above. Dictated by: Jason Chappell M.D. on 04/08/2019 at 13:06 Approved by: Jason Chappell M.D. on 04/08/2019 at 13:27 Discharge Plan Departure Patient Disposition: Home Clinical Impression: Diverticulitis Discharge Date/Time: 04/08/19 16:27 Instructions: DI for Diverticulitis, DI for Abdominal Pain-Adult Activity Restrictions/Additional Instructions: Your labs look good. Your CT scan shows evidence of diverticulitis, an infection and inflammation of naturally occurring pouch large intestine. You have been started on antibiotics for this from the emergency department, and will need to continue on the antibiotics for the next 10 days, as directed. If you develop fevers or worsening pain after 3 days of antibiotics, please be re-evaluated. Your prescriptions have been electronically transmitted to the [facility] pharmacy in [place]. Prescriptions: New levofloxacin [Levaquin] 500 mg tablet 500 mg PO DAILY Qty: 10 RF: 0 metronidazole [Flagyl] 500 mg tablet 500 mg PO BID Qty: 20 RF: 0 ondansetron 4 mg tablet,disintegrating 4 mg PO Q8H PRN (Reason: nausea and vomiting) Qty: 14 RF: 0 hydrocodone-acetaminophen [[place]] 5-325 mg tablet 1 tab PO Q6H PRN (Reason: pain) Qty: 14 RF: 0 No Action bupropion HCl 300 MG tablet extended release 24 hr 300 mg PO QDAY Qty: 30 RF: 2 alendronate 70 mg tablet 70 mg PO QWEEK RF: 0 magnesium oxide 400 mg magnesium tablet 400 mg PO DAILY RF: 0 calcium carbonate 500 mg calcium (1,250 mg) tablet 1,500 mg PO DAILY RF: 0 diazepam 5 mg tablet 5 mg PO DAILY RF: 0 metoprolol succinate 25 mg tablet extended release 24 hr 25 mg PO DAILY RF: 0 cetirizine 10 mg tablet 5 mg PO DAILY Qty: 5 RF: 0 Referrals: Trixie Miramontes ARNP [Primary Care Provider] -
[2019-04-08 14:41] VITALS: BP 133/71; PULSE 65; O2SAT 100
[2019-04-08 15:42] VITALS: BP 131/77; PULSE 64; O2SAT 99
[2019-04-08] MEDS: metroNIDAZOLE 250 MG TABLET 500 MG PO (15:55)
[2019-04-08] MEDS: levoFLOXacin 250 MG TABLET 500 MG PO (15:55)
[2019-04-08] MEDS: KETOROLAC 60 MG/2 ML VIAL 30 MG IV (16:14)
== END 2019-04-08 16:27 | disposition home or self-care (01) ==
PROVIDERS: Emergency Provider Emergency Medicine; Family Provider Nurse Practitioner Psychiatric/Mental Health; PCP Nurse Practitioner Family
DX: K57.92 Diverticulitis of intestine, part unspecified, without perforation or abscess without bleeding (principal)
CPT/HCPCS: 36415; 74176; 80053; 81003; 85025; 96361; 96374; 99283; 99284; J1885

== ENCOUNTER 2019-04-10 08:21 | Emergency (ER) | payer MEDICARE, SELFPAY ==
[2019-04-10 08:25] VITALS: BP 146/87; PULSE 73; RESP 18; TEMP 36.6; O2SAT 100
--- NOTE | 2019-04-10 08:25 | ED.ABDPAIN ---
HPI - Abdominal Pain General Chief Complaint: Abdominal Pain Stated Complaint: 'diverticulitis' Time Seen by Provider: 04/10/19 08:24 Source: patient and family Mode of arrival: Ambulatory Limitations: no limitations History of Present Illness HPI narrative: 79-year-old female nonsmoker with recently diagnosed diverticulitis returns to the emergency department with a chief complaint of episodes of waxing and waning severe, crampy abdominal pain. She has seen and evaluated over the weekend and had unremarkable labs and a CT scan showing early diverticulitis. She was discharged on antibiotics and pain medications but returns stating that she had an episode of significant pain this morning but that he had improved prior to being checked in. She denies any fever chills. She has had some nausea. Her pain is at times worse when she moves and improves with rest but also seems to have a mind of his stone. MD complaint: abdominal pain and flank pain Onset (ago): day(s) Pain Consistency: intermittent, now resolved and colicky Location: LLQ Severity: moderate Quality: cramping and aching Radiation: none Migration to: no migration Relieving factors: nothing Exacerbating factors: nothing Associated symptoms: nausea Related Data Home Medications Medication Instructions Recorded Confirmed diazepam 5 mg PO DAILY 06/29/18 04/10/19 metoprolol succinate 25 mg 25 mg PO DAILY tab 03/02/19 03/02/19 tablet,extended release 24 hr alendronate 70 mg tablet 70 mg PO QWEEK 03/08/19 04/10/19 calcium carbonate 500 mg calcium 1,500 mg PO DAILY tab 03/08/19 (1,250 mg) tablet magnesium oxide 400 mg PO DAILY 03/08/19 Previous Rx's Medication Instructions Recorded bupropion HCl 300 mg PO QDAY #30 tab 05/30/17 cetirizine 5 mg PO DAILY #5 tab 07/01/18 hydrocodone-acetaminophen [[place]] 1 tab PO Q6H PRN #14 tab 04/08/19 levofloxacin [Levaquin] 500 mg PO DAILY #10 tab 04/08/19 metronidazole [Flagyl] 500 mg PO BID #20 tab 04/08/19 ondansetron 4 mg PO Q8H PRN #14 tab 04/08/19 hyoscyamine sulfate 0.125 mg PO BID-QID PRN #20 tab 10/22/19 Allergies Allergy/AdvReac Type Severity Reaction Status Date / Time Sulfa (Sulfonamide Allergy Severe rash Verified 07/15/18 13:46 Antibiotics) [SULFA (SULFONAMIDE ANTIBIOTICS)] Penicillins [PENICILLINS] Allergy Unknown Verified 07/15/18 13:46 Iodinated Contrast Media Allergy Facial Verified 07/15/18 13:46 [Iodinated Contrast- Oral swelling and IV Dye] and rash codeine [CODEINE] AdvReac Mild upset Verified 07/15/18 13:46 stomach Review of Systems Constitutional Constitutional: Denies chills, Denies fatigue, Denies fever(s), Denies frequent falls, Denies lethargy and Denies weakness Eyes Eyes: Denies change in vision, Denies eye discharge, Denies irritation and Denies loss of vision ENT Ears, Nose, Mouth, and Throat: Denies change in voice, Denies dizziness, Denies neck pain, Denies sore throat and Denies throat swelling Cardiovascular Cardiovascular: Denies chest pain, Denies irregular heart rhythm, Denies lightheadedness, Denies palpitations, Denies dyspnea, Denies dyspnea on exertion and Denies orthopnea Respiratory Respiratory: Denies cough, Denies dyspnea, Denies dyspnea on exertion and Denies wheezing Gastrointestinal Gastrointestinal: Reports abdominal pain, Denies change in bowel habits, Denies diarrhea, Reports nausea and Denies vomiting Genitourinary Genitourinary: Denies hematuria, Denies flank pain, Denies urinary incontinence and Denies urinary urgency Musculoskeletal Musculoskeletal: Denies back pain, Denies muscle weakness, Denies neck pain, Denies numbness and Denies tingling Integumentary/Breasts Skin/Breast: Denies pruritus, Denies erythema, Denies rash and Denies wounds Neurologic Neurologic: Denies behavioral changes, Denies confusion, Denies dizziness, Denies frequent falls, Denies loss of vision, Denies numbness, Denies tingling and Denies weakness Psychiatric Psychiatric: Denies anxiety, Denies behavioral changes, Denies confusion, Denies depression, Denies homicidal ideation and Denies suicidal ideation Endocrine Endocrine: Denies fatigue, Denies flushing and Denies palpitations Hematologic/Lymphatic Hematologic/Lymphatic: Denies easy bruising Allergic/Immunologic Allergic/Immunologic: Denies urticaria, Denies throat swelling and Denies wheezing Patient History Medical History Allergic reaction (Acute) Anxiety disorder, unspecified (Chronic) Major depressive disorder, recurrent, in partial remission (Acute) PTSD (post-traumatic stress disorder) (Acute) Surgical History Status post cholecystectomy Social History Smoking Status: Never smoker alcohol intake frequency: 0-2 drinks per day Substance Use Type: does not use Exam Narrative Exam Narrative: GENERAL: [79] year old patient appears stated age. Well-nourished, well-developed patient, in mild distress. Anxious, tearful HEAD: Atraumatic. Normocephalic. EYES: Pupils equal round and reactive. Extraocular motions intact. No scleral icterus. No injection or drainage. ENT: Nose without bleeding, purulent drainage. Throat without erythema, tonsillar hypertrophy or exudate. Airway patent. NECK: Trachea midline. Non tender CARDIOVASCULAR: Regular rate and rhythm without murmurs, gallops, or rubs. RESPIRATORY: Clear to auscultation. Breath sounds equal bilaterally. No wheezes, rales, or rhonchi. GASTROINTESTINAL: Abdomen soft, tender to palpate her left lower quadrant, nondistended. EXTREMITIES: No edema or joint tenderness. BACK: Nontender without deformity or crepitance. No flank tenderness. NEURO: AOx3. SKIN: No rash or erythema of visible areas Initial Vital Signs Initial Vital Signs: Vital Signs Temperature 97.9 F 04/10/19 08:25 Pulse Rate 73 04/10/19 08:25 Respiratory Rate 18 04/10/19 08:25 Blood Pressure 146/87 H 04/10/19 08:25 Pulse Oximetry 100 04/10/19 08:25 Course Orders Ordered: ED Orders 04/10/19 08:35 XR acute abdomen series Stat 04/10/19 09:10 Complete Blood Count AUTO DIFF Stat Comprehensive Metabolic Panel Stat Lipase Stat Discontinued Medications Hyoscyamine (Levsin) 0.125 mg PO NOW ONE Stop: 04/10/19 08:35 Last Admin: 04/10/19 09:25 Dose: 0.125 mg Documented by: ILIANA Sodium Chloride (Normal Saline 0.9%) 1,000 mls @ 1,000 mls/hr IV BOLUS ONE Stop: 04/10/19 09:33 Last Infusion: 04/10/19 10:27 Dose: 999 mls/hr Documented by: Admin: 04/10/19 09:25 Dose: 1,000 mls/hr Documented by: ILIANA Vital Signs Vital signs: Vital Signs - 8 hr 04/10/19 08:25 04/10/19 11:16 Temperature 97.9 F Pulse Rate 73 84 Respiratory Rate 18 18 Blood Pressure 146/87 H Blood Pressure [Left Arm] 109/56 L Pulse Oximetry 100 97 MDM - Abdominal Pain Lab Data Result diagrams: 04/10/19 09:10 04/10/19 09:10 Labs: Lab Results 04/10/19 04/10/19 Range/Units 09:10 09:10 WBC 4.9 (4.5-11.0) X10^3/uL RBC 3.97 L (4.0-5.2) X10^6/uL Hgb 12.2 (12.0-16.0) g/dL Hct 35.7 L (36-46) % MCV 89.7 (80-100) fL MCH 30.7 (26-34) PG MCHC 34.3 (30-36) % RDW 12.7 (11.6-14.8) % Plt Count 247 (150-400) X10^3/uL Neut % (Auto) 63.6 (50-75) % Lymph % (Auto) 24.2 L (25-40) % [place] % (Auto) 9.8 (3-14) % Eos % (Auto) 1.5 L (2-4) % Baso % (Auto) 0.9 (0-2) % Neut # (Auto) 3100 (3257-9250) /uL Lymph # (Auto) 1200 (1665-2162) /uL [place] # (Auto) 500 (0-900) /uL Eos # (Auto) 100 (0-450) /uL Baso # (Auto) 0 (0-100) /uL Sodium 140 (137-145) mmol/L Potassium 4.1 (3.4-5.1) mmol/L Chloride 107 (98-107) mmol/L Carbon Dioxide 23 (22-32) mmol/L BUN 14 (7-17) mg/dL Creatinine 1.10 H (0.52-1.04) mg/dL Estimated GFR 47.9 L (>60) mL/min BUN/Creatinine Ratio 12.7 (6-22) Glucose 103 (80-110) mg/dL Calcium 9.2 (8.4-10.2) mg/dL Total Bilirubin 0.9 (0.2-1.3) mg/dL AST 23 (14-36) IU/L ALT 13 (9-52) IU/L Alkaline Phosphatase 107 (38-126) U/L Total Protein 6.9 (6.3-8.2) g/dL Albumin 3.9 (3.5-5.0) g/dL Globulin 3.0 (1.7-4.1) g/dL Albumin/Globulin Ratio 1.3 (1.0-2.8) Lipase 40 (23-300) U/L Imaging Data Abdominal x-ray: Radiologist's impression: [place] [address] XRay Report Signed Patient: Linda Mcgee LMR#: [id number] : 1940Acct:[id number] Age/Sex: 79 / FDate of Service: 04/10/19 Loc: ED Accession Number: [id number] Procedure: XR acute abdomen series Ordering Provider: Aleksandar Finn D.O. PROCEDURE: XR ACUTE ABDOMEN SERIES INDICATIONS: Abdominal pain TECHNIQUE: One view chest and two views of the abdomen were acquired. COMPARISON: [facility], CT, CT ABDOMEN PELVIS WO CON, 04/08/2019, 13:41. FINDINGS: Surgical changes and devices: Surgical clips are seen scattered throughout the abdomen and pelvis, likely related to prior cholecystectomy and tubal ligation. Chest: Lungs are clear. No definite areas of pulmonary consolidation are evident. Areas of pulmonary scarring are seen within the lung apices. Heart size is normal. No pleural effusions. No pneumoperitoneum. Abdomen: Bowel gas pattern is normal. A large amount of stool seen throughout the colon. No suspicious calcifications. Visualized solid organ contours appear normal. Bones: No suspicious bony lesions. IMPRESSION: 1. Possible constipation. No bowel obstruction. 2. No acute cardiopulmonary process is evident. Dictated by: Dusty Soler M.D. on 04/10/2019 at 8:27 Approved by: Dusty Soler M.D. on 04/10/2019 at 8:28 MDM Narrative Medical decision making narrative: Multiple etiologies for patient's symptoms considered including: [Constipation versus bowel obstruction versus perforation versus worsening of diverticulitis versus multifactorial scenario including medication affects] Patient's symptoms improved or duration of stay with above-stated therapies. Findings and discharge diagnosis discussed with patient/family followed by verbalization of understanding Return precautions discussed with patient/family whom verbalize understanding. Discharge Plan Departure Patient Disposition: Home Clinical Impression: Diverticulitis Constipation Qualifiers: Constipation type: unspecified constipation type Qualified Code(s): K59.00 - Constipation, unspecified Discharge Date/Time: 04/10/19 11:51 Activity Restrictions/Additional Instructions: *You have been diagnosed with [abdominal pain, constipation] *What to do: *Take medications as directed *Follow up with your primary care provider in 2-3 days, call for an appointment. Let them know you were seen in the Emergency Department and that we ask that you be seen in follow up *Return to ER if you should have any new, worsening or concerning symptoms, such as [worsening pain, fever, ] 1. Stay active 2. Return to your normal diet as much as possible 3. Stay well hydrated 4. A combination of over the counter laxitives including Dulcolax (stimulant laxative) Magnesium Citrate (pulls water into stool) Colace (stool softener) Prescriptions: New hyoscyamine sulfate 0.125 mg tablet 0.125 mg PO BID-QID PRN (Reason: dyspepsia) Qty: 20 RF: 0 No Action bupropion HCl 300 MG tablet extended release 24 hr 300 mg PO QDAY Qty: 30 RF: 2 alendronate 70 mg tablet 70 mg PO QWEEK RF: 0 magnesium oxide 400 mg magnesium tablet 400 mg PO DAILY RF: 0 calcium carbonate 500 mg calcium (1,250 mg) tablet 1,500 mg PO DAILY RF: 0 diazepam 5 mg tablet 5 mg PO DAILY RF: 0 metoprolol succinate 25 mg tablet extended release 24 hr 25 mg PO DAILY RF: 0 cetirizine 10 mg tablet 5 mg PO DAILY Qty: 5 RF: 0 levofloxacin [Levaquin] 500 mg tablet 500 mg PO DAILY Qty: 10 RF: 0 metronidazole [Flagyl] 500 mg tablet 500 mg PO BID Qty: 20 RF: 0 ondansetron 4 mg tablet,disintegrating 4 mg PO Q8H PRN (Reason: nausea and vomiting) Qty: 14 RF: 0 hydrocodone-acetaminophen [[place]] 5-325 mg tablet 1 tab PO Q6H PRN (Reason: pain) Qty: 14 RF: 0 Referrals: Trixie Miramontes ARNP [Primary Care Provider] -
--- NOTE | 2019-04-10 08:35 | DI.RAD.S_ITS ---
PROCEDURE: XR ACUTE ABDOMEN SERIES INDICATIONS: Abdominal pain TECHNIQUE: One view chest and two views of the abdomen were acquired. COMPARISON: [facility], CT, CT ABDOMEN PELVIS WO CON, 04/08/2019, 13:41. FINDINGS: Surgical changes and devices: Surgical clips are seen scattered throughout the abdomen and pelvis, likely related to prior cholecystectomy and tubal ligation. Chest: Lungs are clear. No definite areas of pulmonary consolidation are evident. Areas of pulmonary scarring are seen within the lung apices. Heart size is normal. No pleural effusions. No pneumoperitoneum. Abdomen: Bowel gas pattern is normal. A large amount of stool seen throughout the colon. No suspicious calcifications. Visualized solid organ contours appear normal. Bones: No suspicious bony lesions. IMPRESSION: 1. Possible constipation. No bowel obstruction. 2. No acute cardiopulmonary process is evident. Dictated by: Dusty Soler M.D. on 04/10/2019 at 8:27 Approved by: Dusty Soler M.D. on 04/10/2019 at 8:28
[2019-04-10 09:20] LABS: Add Manual Diff / Slide Review NO; Basophils Absolute Auto 0 /uL (0-100); Basophils Percent Auto 0.9 % (0-2); Eosinophils Absolute Auto 100 /uL (0-450); Eosinophils Percent Auto 1.5 % (2-4); Hematocrit 35.7 % (36-46); Hemoglobin 12.2 g/dL (12.0-16.0); Lymphocytes Absolute Auto 1200 /uL (1100-4500); Lymphocytes Percent Auto 24.2 % (25-40); Mean Corpuscular HGB Conc 34.3 % (30-36); Mean Corpuscular Hemoglobin 30.7 PG (26-34); Mean Corpuscular Volume 89.7 fL (80-100); Monocytes Absolute Auto 500 /uL (0-900); Monocytes Percent Auto 9.8 % (3-14); Neutrophils Absolute Auto 3100 /uL (1500-7000); Neutrophils Percent Auto 63.6 % (50-75); Platelet Count 247 X10^3/uL (150-400); Red Blood Cell Count 3.97 X10^6/uL (4.0-5.2); Red Cell Distribution Width 12.7 % (11.6-14.8); White Blood Cell Count 4.9 X10^3/uL (4.5-11.0)
[2019-04-10] MEDS: HYOSCYAMINE 0.125 MG TABLET PO (09:25)
[2019-04-10] MEDS: SODIUM CHLORIDE 0.9% 1,000 ML 1000 ML IV (09:25)
[2019-04-10 09:30] LABS: Alanine Aminotransferase 13 IU/L (9-52); Albumin 3.9 g/dL (3.5-5.0); Albumin Globulin Ratio 1.3 (1.0-2.8); Alkaline Phosphatase 107 U/L (38-126); Aspartate Aminotransferase 23 IU/L (14-36); BUN Creatinine Ratio 12.7 (6-22); Bilirubin Total 0.9 mg/dL (0.2-1.3); Blood Urea Nitrogen 14 mg/dL (7-17); Calcium 9.2 mg/dL (8.4-10.2); Carbon Dioxide 23 mmol/L (22-32); Chloride 107 mmol/L (98-107); Estimated Glomerular Filt Rate 47.9 mL/min (>60); Glucose 103 mg/dL (80-110); HEMOLYSIS 30 (0-50); Lipase 40 U/L (23-300); Potassium 4.1 mmol/L (3.4-5.1); Sodium 140 mmol/L (137-145); Total Protein 6.9 g/dL (6.3-8.2)
--- NOTE | 2019-04-10 10:28 | PC.NURSE ---
planning on dc on pt, now crying states abd pain/ cramping, dr. duke aware. so at bedside.
[2019-04-10 11:16] VITALS: BP 109/56; PULSE 84; RESP 18; O2SAT 97
== END 2019-04-10 11:51 | disposition home or self-care (01) ==
PROVIDERS: Emergency Provider Emergency Medicine; Family Provider Nurse Practitioner Psychiatric/Mental Health; PCP Nurse Practitioner Family
DX: K57.92 Diverticulitis of intestine, part unspecified, without perforation or abscess without bleeding (principal); K59.00 Constipation, unspecified
CPT/HCPCS: 36415; 74022; 80053; 83690; 85025; 96360; 99283; 99284

== ENCOUNTER 2019-08-01 13:38 | Day surgery (SDC) | payer MEDICARE, SELFPAY ==
--- NOTE | 2019-08-01 12:14 | PM.HP.1 ---
History of Present Illness History of Present Illness Date Patient Seen: 08/01/19 Chief complaint: 92000 Narrative: Patient is a 79-year-old female who presented for colonoscopy. She was last seen in the office on May 24, 2019. She does have a history of chronic diarrhea. Last colonoscopy 2015 severe sigmoid diverticulosis with rigidity and tortuosity. In preop patient noted to be bradycardic with heart rate in the low 30s. Blood pressure systolic was between high 80s and low 100s. EKG performed preop revealed non conduction of multiple beats with bradycardia. Spoke to Radha King nurse practitioner with [facility] who agreed with having patient go to the emergency department for further evaluation. Patient History Medical History Allergic reaction (Acute) Anxiety disorder, unspecified (Chronic) Major depressive disorder, recurrent, in partial remission (Acute) PTSD (post-traumatic stress disorder) (Acute) Surgical History Status post cholecystectomy Family & Social History Tobacco & Substance use: Smoking Status Never smoker alcohol intake frequency 0-2 drinks per day Substance Use Type does not use Meds Home Medications and Allergies Home Medications Medication Instructions Recorded Confirmed Type bupropion HCl 300 mg PO QDAY #30 tab 05/30/17 Rx diazepam 5 mg PO DAILY 06/29/18 04/10/19 History metoprolol succinate 25 mg 25 mg PO DAILY tab 03/02/19 03/02/19 History tablet,extended release 24 hr alendronate 70 mg tablet 70 mg PO QWEEK 03/08/19 04/10/19 History calcium carbonate 500 mg calcium 1,500 mg PO DAILY tab 03/08/19 History (1,250 mg) tablet magnesium oxide 400 mg PO DAILY 03/08/19 History Allergies Allergy/AdvReac Type Severity Reaction Status Date / Time Sulfa (Sulfonamide Allergy Severe rash Verified 08/01/19 14:19 Antibiotics) [SULFA (SULFONAMIDE ANTIBIOTICS)] Penicillins [PENICILLINS] Allergy Unknown Verified 08/01/19 14:19 Iodinated Contrast Media Allergy Facial Verified 08/01/19 14:19 [Iodinated Contrast- Oral swelling and IV Dye] and rash codeine [CODEINE] AdvReac Mild upset Verified 08/01/19 14:19 stomach Review of Systems Cardiovascular Cardiovascular: Reports shortness of breath with activity Respiratory Respiratory: Reports dyspnea on exertion Comments: Patient describes intermittent shortness of breath especially with exertion over the last 2 weeks. She states this is a new symptom for her Gastrointestinal Comments: Improving diarrhea. Less frequent abdominal pain. Exam Narrative Exam Narrative: In preop patient was noted to have severe bradycardia with heart rate in the low 30s. She does describe worsening shortness of breath over the last 2 weeks. This was discussed with her primary care team. This is a new finding for her. Const General: cooperative and comfortable Nutritional Appearance: thin Orientation: alert, awake and oriented x3 Cardio Rate: bradycardic Heart Sounds: S1 normal and S2 normal GI Palpation: soft, No guarding and No rigid Auscultation: normal bowel sounds Assessment & Plan Assessment & Plan narrative: 1. Bradycardia 2. Chronic diarrhea -improving Case was discussed with patient's primary care team, due to bradycardia with borderline hypotension patient is being transferred to the emergency department for further evaluation. We will follow up with the patient outpatient to determine if further workup from a GI perspective is indicated. No procedures were performed today.
[2019-08-01] MEDS: SODIUM CHLORIDE 0.9% 1,000 ML 70 ML IV (14:21)
--- NOTE | 2019-08-01 14:34 | SUR.PREOP ---
After checking patient's vital signs, HR noted to be 33. Patient states she has never been told she has a low heart rate. According to H&P located in chart, HR was 33 in May. Patient is on Metoprolol 25 mg BID and took her normal dose this morning. Patient denies CP or SOB but then tells this nurse that she has felt more tired for the last few weeks. Patient states that she has had trouble catching her breath this last week while walking up the stairs, which is unusual for her. Notified physician Dr Poon. EKG ordered.
[2019-08-01 14:38] VITALS: BP 118/68; PULSE 33; RESP 14; TEMP 35.6; O2SAT 98; BMI 21.6
--- NOTE | 2019-08-01 14:58 | SUR.PREOP ---
Dr Poon assessing patient at bedside and suggesting that colonoscopy be re-scheduled for now and possible evaluation in the ER. Patient verbalizes understanding and agrees to plan of care.
--- NOTE | 2019-08-01 15:30 | SUR.PREOP ---
Transferred patient to ER via stretcher for evaluation. with patient. Report given to ER nursing staff.
== END 2019-08-01 15:30 | disposition home or self-care (01) ==
PROVIDERS: Family Provider Nurse Practitioner Psychiatric/Mental Health; PCP Internal Medicine; Referring Provider Student in an Organized Health Care Education/Training Program; Visit Provider Student in an Organized Health Care Education/Training Program
PROC: 0DJD8ZZ Inspection of Lower Intestinal Tract, Via Natural or Artificial Opening Endoscopic (ICD-10-PCS; CPT 45378; principal; 2019-08-01 15:30)
DX: R00.1 Bradycardia, unspecified (principal); Z53.09 Procedure and treatment not carried out because of other contraindication
CPT/HCPCS: 45378; 93005

== ENCOUNTER 2019-08-01 15:24 | Emergency (ER) | payer MEDICARE, SELFPAY ==
[2019-08-01 15:30] VITALS: BP 133/63; PULSE 31; RESP 17; TEMP 36.7; O2SAT 99
--- NOTE | 2019-08-01 15:34 | PC.NURSE ---
Pt arrived from pre-op OR. scheduled to have colonoscopy for diarrhea and fatigue for months. having increasing SOB over the last 3 days. Has been on Metoprolol 25mg BID for about 1 year. denies cardiac history. Currently in a regular [place] HR 60's. denies CP denies SOB. pt denies having an ECHO. No thinners. 100% RA lungs clear. IV placed and lab in to draw.
--- NOTE | 2019-08-01 15:43 | ED_ITS ---
HPI - Arrhythmia/Palpitations General Chief Complaint: Arrhythmia/Palpitations Stated Complaint: Bradycardia Time Seen by Provider: 08/01/19 15:27 Source: patient and RN notes reviewed Mode of arrival: Wheelchair Limitations: no limitations History of Present Illness HPI narrative: 79-year-old female. No prior cardiac history. Was started on metoprolol approximately 6 weeks ago after being off of it for an extended period of time. Her initial time that she was on metoprolol several years ago because she had a ?skipped beat?. She had several Holter monitors afterwards which showed that this had resolved so she was taken off of the by her pharmacy operations manager. She was put back on it by her primary provider. She is currently taking 25 mg of metoprolol succinate 2 times a day. She has also been experiencing chronic diarrhea. She was scheduled for a colonoscopy this morning. While she was getting set up for this they placed her on the monitor and were concerned about an irregular heart rate and a heart rate in the 30s. Patient describes no chest pain. She states over the past couple weeks she has had 2 episodes where she had shortness of breath. Each were very short lived. Not associated with chest pain. She was sent to the emergency department for evaluation because of her heart rate. No procedures were performed today. She did take a Valium this morning. Related Data Home Medications Medication Instructions Recorded Confirmed diazepam 5 mg PO DAILY 06/29/18 08/01/19 metoprolol succinate 25 mg 25 mg PO DAILY tab 03/02/19 08/01/19 tablet,extended release 24 hr alendronate 70 mg tablet 70 mg PO QWEEK 03/08/19 08/01/19 calcium carbonate 500 mg calcium 1,500 mg PO DAILY tab 03/08/19 08/01/19 (1,250 mg) tablet magnesium oxide 400 mg PO DAILY 03/08/19 08/01/19 Previous Rx's Medication Instructions Recorded bupropion HCl 300 mg PO QDAY #30 tab 05/30/17 Allergies Allergy/AdvReac Type Severity Reaction Status Date / Time Sulfa (Sulfonamide Allergy Severe rash Verified 08/01/19 14:19 Antibiotics) [SULFA (SULFONAMIDE ANTIBIOTICS)] Penicillins [PENICILLINS] Allergy Unknown Verified 08/01/19 14:19 Iodinated Contrast Media Allergy Facial Verified 08/01/19 14:19 [Iodinated Contrast- Oral swelling and IV Dye] and rash codeine [CODEINE] AdvReac Mild upset Verified 08/01/19 14:19 stomach Review of Systems Constitutional Constitutional: Denies fever(s) and Denies headache(s) ENT Ears, Nose, Mouth, and Throat: Denies headache(s) Cardiovascular Cardiovascular: Denies chest pain, Denies palpitations and Denies dyspnea (None currently) Respiratory Respiratory: Denies cough and Denies dyspnea (None currently) Gastrointestinal Gastrointestinal: Denies diarrhea and Denies vomiting Genitourinary Genitourinary: Denies dysuria Musculoskeletal Musculoskeletal: Denies myalgias and Denies arthralgias Integumentary/Breasts Skin/Breast: Denies lesions and Denies rash Neurologic Neurologic: Denies headache(s) Endocrine Endocrine: Denies palpitations Hematologic/Lymphatic Hematologic/Lymphatic: Denies easy bleeding and Denies easy bruising Patient History Medical History Allergic reaction (Acute) Anxiety disorder, unspecified (Chronic) Major depressive disorder, recurrent, in partial remission (Acute) PTSD (post-traumatic stress disorder) (Acute) Social History household members: spouse Smoking Status: Never smoker Smoking Status: Never smoker alcohol intake frequency: 0-2 drinks per day Substance Use Type: does not use Exam Initial Vital Signs Initial Vital Signs: Vital Signs Temperature 98.1 F 08/01/19 15:30 Pulse Rate 31 L 08/01/19 15:30 Respiratory Rate 17 08/01/19 15:30 Blood Pressure 133/63 08/01/19 15:30 Pulse Oximetry 99 08/01/19 15:30 Const General: cooperative and comfortable HENMT Head: normal to inspection and normocephalic Chest Chest: normal inspection of the chest Resp Effort & Inspection: normal respiratory effort Auscultation: clear to auscultation bilaterally Cardio Rate: regular rate Rhythm: abnormal rhythm Pulses: radial pulses present GI Inspection: non-distended Palpation: soft Skin Lesions: no lesions Rashes: no rashes Neuro General: alert, awake and oriented x3 Cognition: normal cognition Speech: speech normal Extrem General: normal to inspection and capillary refill normal Scores GCS Suzie coma scale eye opening: Spontaneous [place] coma scale verbal response: Orientated [place] coma scale motor response: Obey commands [place] coma scale total score: 15 Course Orders Ordered: ED Orders 08/01/19 15:30 EKG-12 Lead Stat 08/01/19 15:44 Complete Blood Count AUTO DIFF Stat Comprehensive Metabolic Panel Stat Partial Thromboplastin Time Stat Prothrombin Time INR Stat Troponin I Stat Vital Signs Vital signs: Vital Signs - 8 hr 08/01/19 15:30 08/01/19 16:00 Temperature 98.1 F Pulse Rate 31 L 41 L Respiratory Rate 17 20 Blood Pressure 133/63 Blood Pressure [Left Arm] 129/60 Pulse Oximetry 99 99 MDM - Arrhythmia/Palpitations Medical Records Attestation: I reviewed the patient's medical records. Lab Data Attestation: I reviewed the patient's lab results. Result diagrams: 08/01/19 15:44 08/01/19 15:44 Labs: Lab Results 08/01/19 08/01/19 08/01/19 Range/Units 15:44 15:44 15:44 WBC 5.4 (4.5-11.0) X10^3/uL RBC 4.27 (4.0-5.2) X10^6/uL Hgb 12.7 (12.0-16.0) g/dL Hct 37.6 (36-46) % MCV 88.1 (80-100) fL MCH 29.8 (26-34) PG MCHC 33.8 (30-36) % RDW 13.5 (11.6-14.8) % Plt Count 242 (150-400) X10^3/uL Neut % (Auto) 53.8 (50-75) % Lymph % (Auto) 33.6 (25-40) % [place] % (Auto) 9.8 (3-14) % Eos % (Auto) 2.1 (2-4) % Baso % (Auto) 0.7 (0-2) % Neut # (Auto) 2900 (7859-5261) /uL Lymph # (Auto) 1800 (3541-7161) /uL [place] # (Auto) 500 (0-900) /uL Eos # (Auto) 100 (0-450) /uL Baso # (Auto) 0 (0-100) /uL PT 13.4 H (10.1-12.7) SECONDS INR 1.2 (0.9-1.3) APTT 68 H (26.4-36.2) SECONDS Sodium 140 (137-145) mmol/L Potassium 4.9 (3.4-5.1) mmol/L Chloride 107 (98-107) mmol/L Carbon Dioxide 25 (22-32) mmol/L BUN 21 H (7-17) mg/dL Creatinine 1.20 H (0.52-1.04) mg/dL Estimated GFR 43.3 L (>60) mL/min BUN/Creatinine Ratio 17.5 (6-22) Glucose 94 (80-110) mg/dL Calcium 9.2 (8.4-10.2) mg/dL Total Bilirubin 1.2 (0.2-1.3) mg/dL AST 30 (14-36) IU/L ALT 27 (<35) IU/L Alkaline Phosphatase 108 (38-126) U/L Troponin I < 0.012 (0.01-0.034) ng/mL Total Protein 6.8 (6.3-8.2) g/dL Albumin 3.8 (3.5-5.0) g/dL Globulin 3.0 (1.7-4.1) g/dL Albumin/Globulin Ratio 1.3 (1.0-2.8) ECG Data Attestation: I personally reviewed and interpreted this ECG as follows: Interpretation: Ventricular bigeminy MDM Narrative Medical decision making narrative: Patient asymptomatic. No chest pain. No shortness of breath currently. Labs unremarkable. EKG shows ventricular bigeminy. Discussed the case with Dr. Bush with cardiology who recommended checking the troponin and electrolytes in the for unremarkable discharge her home with referral to follow-up with her primary doctor for an echocardiogram. We will also decrease her metoprolol from 2 times a day to 1 time a day. She was instructed to take her blood pressure once a day to make sure that her blood pressure does not elevate. She was given return precautions and follow-up instructions. She expressed understanding and agreement plan. Discharge Plan Departure Patient Disposition: Home Clinical Impression: Ventricular bigeminy Instructions: DI for Arrhythmias Activity Restrictions/Additional Instructions: A normal heart rate is between 60 and 100 beats per minute. An ideal blood pressure is 120/80. I recommend that you decrease your metoprolol from 25 mg 2 times a day to 25 mg 1 time a day. I also recommend that you take your blood pressure 1 time a day and record it. Tomorrow contact your primary provider for a follow-up to discuss potentially decreasing her metoprolol further. Return to the emergency department for any new or worsening symptoms Prescriptions: No Action bupropion HCl 300 MG tablet extended release 24 hr 300 mg PO QDAY Qty: 30 RF: 2 alendronate 70 mg tablet 70 mg PO QWEEK RF: 0 magnesium oxide 400 mg magnesium tablet 400 mg PO DAILY RF: 0 calcium carbonate 500 mg calcium (1,250 mg) tablet 1,500 mg PO DAILY RF: 0 diazepam 5 mg tablet 5 mg PO DAILY RF: 0 metoprolol succinate 25 mg tablet extended release 24 hr 25 mg PO DAILY RF: 0 Referrals: Radha King ARNP [Primary Care Provider] -
[2019-08-01 15:51] LABS: Add Manual Diff / Slide Review NO; Basophils Absolute Auto 0 /uL (0-100); Basophils Percent Auto 0.7 % (0-2); Eosinophils Absolute Auto 100 /uL (0-450); Eosinophils Percent Auto 2.1 % (2-4); Hematocrit 37.6 % (36-46); Hemoglobin 12.7 g/dL (12.0-16.0); Lymphocytes Absolute Auto 1800 /uL (1100-4500); Lymphocytes Percent Auto 33.6 % (25-40); Mean Corpuscular HGB Conc 33.8 % (30-36); Mean Corpuscular Hemoglobin 29.8 PG (26-34); Mean Corpuscular Volume 88.1 fL (80-100); Monocytes Absolute Auto 500 /uL (0-900); Monocytes Percent Auto 9.8 % (3-14); Neutrophils Absolute Auto 2900 /uL (1500-7000); Neutrophils Percent Auto 53.8 % (50-75); Platelet Count 242 X10^3/uL (150-400); Red Blood Cell Count 4.27 X10^6/uL (4.0-5.2); Red Cell Distribution Width 13.5 % (11.6-14.8); White Blood Cell Count 5.4 X10^3/uL (4.5-11.0)
[2019-08-01 16:00] VITALS: BP 129/60; PULSE 41; RESP 20; O2SAT 99
[2019-08-01 16:02] LABS: INR 1.2 (0.9-1.3); Prothrombin Time 13.4 SECONDS (10.1-12.7)
[2019-08-01 16:05] LABS: PTT Partial Thromboplastin Tim 68 SECONDS (26.4-36.2)
[2019-08-01 16:07] LABS: Alanine Aminotransferase 27 IU/L (<35); Albumin 3.8 g/dL (3.5-5.0); Albumin Globulin Ratio 1.3 (1.0-2.8); Alkaline Phosphatase 108 U/L (38-126); Aspartate Aminotransferase 30 IU/L (14-36); BUN Creatinine Ratio 17.5 (6-22); Bilirubin Total 1.2 mg/dL (0.2-1.3); Blood Urea Nitrogen 21 mg/dL (7-17); Calcium 9.2 mg/dL (8.4-10.2); Carbon Dioxide 25 mmol/L (22-32); Chloride 107 mmol/L (98-107); Estimated Glomerular Filt Rate 43.3 mL/min (>60); Glucose 94 mg/dL (80-110); HEMOLYSIS < 15 (0-50); Potassium 4.9 mmol/L (3.4-5.1); Sodium 140 mmol/L (137-145); Total Protein 6.8 g/dL (6.3-8.2)
[2019-08-01 16:19] LABS: Troponin I < 0.012 ng/mL (0.01-0.034)
[2019-08-01 17:00] VITALS: BP 127/58; PULSE 65; RESP 16; O2SAT 97
[2019-08-01 17:44] VITALS: BP 122/93; PULSE 65; RESP 16; O2SAT 97
== END 2019-08-01 17:45 | disposition home or self-care (01) ==
PROVIDERS: Emergency Provider Emergency Medicine; Family Provider Nurse Practitioner Psychiatric/Mental Health; PCP Internal Medicine
DX: I49.9 Cardiac arrhythmia, unspecified (principal); R10.31 Right lower quadrant pain; R10.32 Left lower quadrant pain; R93.3 Abnormal findings on diagnostic imaging of other parts of digestive tract
CPT/HCPCS: 36415; 80053; 84484; 85025; 85610; 85730; 93005; 99284

== ENCOUNTER 2019-08-06 10:11 | Outpatient (RCR) | payer MEDICARE, SELFPAY ==
--- NOTE | 2019-08-06 12:00 | PT.OIE ---
Current Diagnoses Pain in right ankle and joints of right foot (08/06/19) Dorsalgia, unspecified (08/06/19) Muscle weakness (generalized) (08/06/19) Age-related osteoporosis without current pathological fracture (08/06/19) Other symptoms and signs involving the musculoskeletal system (08/06/19) Past Medical History (Last Reviewed 08/01/19 @ 15:54 by Satish Mendoza DO) Allergic reaction (Acute) Anxiety disorder, unspecified (Chronic) Major depressive disorder, recurrent, in partial remission (Acute) PTSD (post-traumatic stress disorder) (Acute) Past Surgical History (Last Reviewed 08/01/19 @ 12:15 by Barbra Poon DO) Status post cholecystectomy Visit Care Team Role Provider Type YANETH Robles Family Provider [employer] Specialty: Psychiatry Address: [address] [place] [address], [place], [place], [facility] Email: [email or web address] AYNETH Matthews Attending Provider [employer] Primary Care Provider Referring Provider Specialty: Family Practice Address: [address] [place] [address], [place], [address] Email: [email or web address] Physical Therapy Initial Evaluation PT-OP-A Visit Information Start: 08/03/19 18:35 Freq: Status: Active Protocol: Document 08/06/19 10:30 LRN (Rec: 08/06/19 11:24 LRN [id number]) Out-Patient Physical Therapy Visit Information Visit Information Visit Type Initial Evaluation Visit Start Time 10:30 Visit Stop Time 11:23 Total Visit Minutes 53 Visit Number 1 Evaluation Information Evaluation Date 08/06/19 Precautions Precautions Osteoporosis Depression & PTSD Ventricular bigeminy PT-OP-B Current Condition Start: 08/03/19 18:35 Freq: Status: Active Protocol: Document 08/06/19 10:30 LRN (Rec: 08/06/19 11:24 LRN [id number]) Current Condition History of Current Condition Onset Date 6 months Current Complaints Low back pain, constant ache History of Current Condition Intermittent soreness across the low back. Had one episode of severe back pain 2 months ago, then told to take Naproxen with 2 Alleve every 8 hrs for 1 day and the pain went away until today. Just now has started having R anterior ankle pain. Was told it was arthritis. Now has been painfree for weeks. Has stopped ex except walking on TM which doesn't have pain. Does upper body workout at [employer]. Prior Treatments and Tests X-Ray of L/S (02/23/2019): Stable [id number] lumbar spondylosis, dexotrocurvature of the lumbar spine centered @ L2, Grade 1 anterolisthesis of L5 on S1 liely pars defect at this level. Developmental History Developmental History See above. Treatment Goals Patient/Caregiver Goals Pt goal is to know the reason for the pain. Pt goal is to be able to exercise without fear of back pain. Address her R ankle pain. Prior Functional Status Baseline Function- ADL's Independent Baseline Function- Mobility Independent Baseline Function- Recreation/Hobbies Exercises at gym 2-3x/week at an hour at a time (1/2 hour on TM, then 1/2 hr on weight training of UE's in sitting). Walking speed 3 and no incline. Shooting pool without pain 4x/ week for 1-2 hours. Current Functional Impairments (Reported) Functional Limitations- ADL's None at this time Functional Limitations- Mobility/Gait No hindrance at this time Functional Limitations- Recreation/ Exercising only 3x/month on TM Hobbies . Slowed down speed of walking on TM. Normal: Shooting pool without pain 4x/week for 1-2 hours (no impairment). Personal Factors Other Personal Factors That May Effect PTSD Therapy/Recovery Depression & Anxiety Grade 1 anterolisthesis of L5 on S1 PT-OP-C Subjective Start: 08/03/19 18:35 Freq: Status: Active Protocol: Document 08/06/19 10:30 LRN (Rec: 08/06/19 11:24 LRN [id number]) Patient Questionnaires Oswestry Low Back Index Oswestry Score 18 Oswestry Impairment 1 to 19% Impaired (Score 1-19) OP-PT Pain Assessment Location R ankle Pain Location Details Anterolateral R ankle Description Sharp Frequency Intermittent Low back Pain Location Details Low back at sacral level Intensity 6 Scale Used Numeric (1 - 10) Description Aching Frequency Constant Pain Alleviating Factors Heat,Medication PT-OP-H Neuro Start: 08/03/19 18:35 Freq: Status: Active Protocol: Document 08/06/19 10:30 LRN (Rec: 08/06/19 11:24 LRN [id number]) Sensation Evaluation Gross Sensation Gross Sensation WNL Deep Tendon Reflex & Clonus Assessment Deep Tendon Reflex Right Achilles Deep Tendon Reflex 1+ Diminished Left Achilles Deep Tendon Reflex 0 Absent Bilateral Patellar Deep Tendon Reflex 2+ Normal PT-OP-J Posture/Palpation/Skin Start: 08/03/19 18:35 Freq: Status: Active Protocol: Document 08/06/19 10:30 LRN (Rec: 08/06/19 11:24 LRN [id number]) Posture Evaluation Position Standing Evaluation View all Palpation Assessment Location R ankle Palpation Location Lateral malleolus inferior and anterior Palpation Findings Edema,Tenderness Low Back Palpation Location Sacrum Palpation Findings Tenderness Palpation Details L5-S1 interspace and paraspinals. Upper to Mid Sacrum PT-OP-K Range of Motion Start: 08/03/19 18:35 Freq: Status: Active Protocol: Document 08/06/19 10:30 LRN (Rec: 08/06/19 11:24 LRN [id number]) Lumbar Spine Range of Motion Lumbar Spine Active Degrees Testing Position Standing Flexion 95 Extension 10 Rotation Left 20 Rotation Right 20 Lateral Flexion Left 20 Lateral Flexion Right 10 Comments No complaints of pain. Hip Goniometric Range of Motion Hip Right Passive Testing Position Supine Straight Leg Raise 85 Abduction 30 Internal Rotation 50 External Rotation 45 Left Passive Testing Position Supine Straight Leg Raise 85 Abduction 35 Internal Rotation 30 External Rotation 60 Hip ROM Limitations Hip ROM Limitations Soft Tissue Tightness Ankle and Foot Goniometric Range of Motion Ankle and Foot Right Active Ankle/Foot ROM WFL No Ankle and Foot ROM Limitations ROM Limitations Pain Comments Decreased active R ankle IV/EV PT-OP-M Strength Start: 08/03/19 18:35 Freq: Status: Active Protocol: Document 08/06/19 10:30 LRN (Rec: 08/06/19 11:48 LRN [id number]) Trunk Strength Trunk Manual Muscle Testing Testing Position Supine & Prone Flexion 5 Normal Extension 5 Normal Rotation Left 3+ Fair+ Rotation Right 3+ Fair+ Core Stabilization Fair stabilization with MMT of LE's. Hip Strength Hip Manual Muscle Testing Right Extension (S1) 3+ Fair+ Abduction 4+ Good+ Adduction 3 Fair Comments Strength is 5/5 except as shown above. Left Abduction 4+ Good+ Comments Strength is 5/5 except as shown above. Knee Strength Knee Manual Muscle Testing Right Reason Not Measured WFL Left Reason Not Measured WFL Ankle/Foot Strength Ankle and Foot Manual Muscle Testing Right Inversion 3 Fair Eversion (S1) 3 Fair Comments Pain inferior to lateral malleolus limiting strength. Left Reason Not Measured WFL Comments Generally 5/5 PT-OP-Q Treatments Start: 08/03/19 18:35 Freq: Status: Active Protocol: Document 08/06/19 10:30 LRN (Rec: 08/06/19 11:48 LRN [id number]) Therapeutic Exercises Supine Exercises Neutral spine positioning Supine Exercise Name Training for neutral spine positioning Comments 4' Therapeutic Activity Therapeutic Activity Sit <-> Stand Name Sit to Stand transfer training w/neutral spine (hinging @ hip) Reps/Minutes 2' Sup<->Sit Name Sup to sit transfer training w /neutral spine. Reps/Minutes 2' Self-Care/Home Management Treatment Education Patient Education Home Exercise Program,Posture Other Education Educated pt in neutral spine positioning in supine and discussed in sitting, standing , with exercise and activity. Activities Self-Care/Home Management Activities Discussed indep ex program at her gym and recommended use of just TM until after next visit. PT-OP-T Assessment and Plan Start: 08/03/19 18:35 Freq: Status: Active Protocol: Document 08/06/19 10:30 LRN (Rec: 08/06/19 11:24 LRN [id number]) Physical Therapy Assessment Rehab Potential Rehabilitation Potential Good Evaluation Complexity Number of Personal Factors/Comorbidities 1-2 Number of Body Systems Impaired 4 or More Clinical Presentation at Evaluation Evolving Impairments Impairments Activity Tolerance,Pain,ROM, Strength Goals Four Impairment R ankle pain Physiological Chemist Goal (LTG) Goal to be set when POC signed and returned. LTG Duration 10/12/19 Three Impairment LBP (rated 6/10) limiting functional activities (DAVIN 9/ 50). Physiological Chemist Goal (LTG) Decrease onset of LBP with improved function per Oswestry Disability Index of 7/50 LTG Duration 10/12/19 Two Impairment Poor awareness of low back posture during daily activities & exercise. Short Term Goal (STG) Pt will demonstrate improved awareness of proper posture during transfers and will be able to transfer appropriately sit <-> supine with a log roll method for protection of her back. STG Duration 08/24/19 Physiological Chemist Goal (LTG) Pt will be able to demonstrate neutral spine positioning with exercises at her local gym with return to prior level of exercise routine (2-3x/ week at [facility] for TM & UE weight training workouts). LTG Duration 10/12/19 One Impairment Pt lacks appropriate self care HEP for her low back and R ankle. Physiological Chemist Goal (LTG) Pt will be independent in a self care HEP for her low back and R ankle with ability to return to her prior functional level of ex at [facility] without pain onset. LTG Duration 10/12/19 Assessment Summary Assessment Pt presents with mechanical low back pain with an anterolisthesis at L5-S1, that has responded well to use of [id number] anti- inflammatory medications. She feels her LBP may also have a psychological component since she has been painfree for a couple months, but her pain returned while she was in the waiting room completing questionnaire forms related to her back pain. She did not report LBP throughout the evaluation process, but noted afterwards an ache at the level of L5-S1. It was noted that she had normal patellar DTR's but I was not able to elicit a L achilles DTR, with a diminished R DTR, indicating possible neurologic involvement. The pt will benefit from skilled physical therapy for postural and neutral spine training to protect her back during daily activities and with return to her exercise program. The pt also reported today a new onset of R anterior ankle pain that appears to be soft tissue in nature, possibly strain of the lateral ligaments with some swelling present, but may also have a neurologic component (further assessment is needed next visit). The pt denies injury to the ankle but did state I might have sprained it, but don't know. The pt will benefit from skilled physical therapy for treatment of her R ankle in order to more quickly return her to her self care exercise program at [facility]. Physical Therapy Plan Frequency and Duration Frequency of Treatment 2x/Week Plan of Care Start Date 08/06/19 Plan of Care End Date 10/12/19 Therapeutic Interventions Therapeutic Interventions Home Exercise Program,Joint Mobilizations,Manual Therapy, Neuromuscular Re-education, Patient/Caregiver Education, Self-Care/Home Management,Soft Tissue Mobilization,Taping, Therapeutic Exercises Modalities Cold Pack/Ice Massage,Electric Stimulation,Hot Packs, Ultrasound Next Visit Focus/Plan Next Note Type Treatment Note Next Visit Plan Assess ankle AROM and SLS and assessment for possible neurological involvement for pain. Review neutral spine positioning and proper stand < -> supine transfer with neutral spine, log roll, and hip hinging. Initiate self care HEP training for ex with neutral spine positioning (Hip stretch: R ER/IR/adductors), strength: R hip ext/AB/AD; L hip AB), core stabilization training. Progress onto machines for aerobic and [employer] type machines for pt to return to ex w/core stab and protection of her L5-S1 anterolisthesis. Add pelvic ex to improve sacral flex and promote L5 flex. Return pt to independent ex at her local ex gym ([employer]) for safe ex.
--- NOTE | 2019-08-24 13:14 | PT-OP ANOTE ---
Per telephone pt reports she forgot her appt. Pt was reminded of her next scheduled appt.
--- NOTE | 2019-10-17 16:50 | PT-OP ANOTE ---
Per telephone conversation the pt states she started taking a medicationi for her osteoporosis and her back pain has resolved. PT no longer needs physical therapy; therefore pt is being discharged from physical therapy.
--- NOTE | 2019-10-17 16:57 | PT.OPDS ---
Current Diagnoses Pain in right ankle and joints of right foot (08/06/19) Dorsalgia, unspecified (08/06/19) Muscle weakness (generalized) (08/06/19) Age-related osteoporosis without current pathological fracture (08/06/19) Other symptoms and signs involving the musculoskeletal system (08/06/19) Visit Care Team Role Provider Type YANETH Robles Family Provider Advanced Invasive Physician Specialty: Psychiatry Address: [facility], [place], [address] Email: [email or web address] YANETH Matthews Attending Provider Advanced Invasive Physician Primary Care Provider Referring Provider Specialty: Family Practice Address: [facility] [facility], [place], [address] Email: [email or web address] Visit Number Visit Number 1 Discharge Summary PT-OP-B Current Condition Start: 08/03/19 18:35 Freq: Status: Active Protocol: Document 08/06/19 10:30 LRN (Rec: 08/06/19 11:24 LRN [id number]) Current Condition History of Current Condition Onset Date 6 months Current Complaints Low back pain, constant ache History of Current Condition Intermittent soreness across the low back. Had one episode of severe back pain 2 months ago, then told to take Naproxen with 2 Alleve every 8 hrs for 1 day and the pain went away until today. Just now has started having R anterior ankle pain. Was told it was arthritis. Now has been painfree for weeks. Has stopped ex except walking on TM which doesn't have pain. Does upper body workout at [employer]. 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 Developmental History Developmental History See above. Treatment Goals Patient/Caregiver Goals Pt goal is to know the reason for the pain. Pt goal is to be able to exercise without fear of back pain. Address her R ankle pain. Prior Functional Status Baseline Function- ADL's Independent Baseline Function- Mobility Independent Baseline Function- Recreation/Hobbies Exercises at gym 2-3x/week at an hour at a time (1/2 hour on TM, then 1/2 hr on weight training of UE's in sitting). Walking speed 3 and no incline. Shooting pool without pain 4x/ week for 1-2 hours. Current Functional Impairments (Reported) Functional Limitations- ADL's None at this time Functional Limitations- Mobility/Gait No hindrance at this time Functional Limitations- Recreation/ Exercising only 3x/month on TM Hobbies . Slowed down speed of walking on TM. Normal: Shooting pool without pain 4x/week for 1-2 hours (no impairment). Personal Factors Other Personal Factors That May Effect PTSD Therapy/Recovery Depression & Anxiety Grade 1 anterolisthesis of L5 on S1 PT-OP-C Subjective Start: 08/03/19 18:35 Freq: Status: Active Protocol: Document 08/06/19 10:30 LRN (Rec: 08/06/19 11:24 LRN [id number]) Patient Questionnaires Oswestry Low Back Index Oswestry Score 18 Oswestry Impairment 1 to 19% Impaired (Score 1-19) OP-PT Pain Assessment Location R ankle Pain Location Details Anterolateral R ankle Description Sharp Frequency Intermittent Low back Pain Location Details Low back at sacral level Intensity 6 Scale Used Numeric (1 - 10) Description Aching Frequency Constant Pain Alleviating Factors Heat,Medication PT-OP-H Neuro Start: 08/03/19 18:35 Freq: Status: Active Protocol: Document 08/06/19 10:30 LRN (Rec: 08/06/19 11:24 LRN [id number]) Sensation Evaluation Gross Sensation Gross Sensation WNL Deep Tendon Reflex & Clonus Assessment Deep Tendon Reflex Right Achilles Deep Tendon Reflex 1+ Diminished Left Achilles Deep Tendon Reflex 0 Absent Bilateral Patellar Deep Tendon Reflex 2+ Normal PT-OP-J Posture/Palpation/Skin Start: 08/03/19 18:35 Freq: Status: Active Protocol: Document 08/06/19 10:30 LRN (Rec: 08/06/19 11:24 LRN [id number]) Posture Evaluation Position Standing Evaluation View all Palpation Assessment Location R ankle Palpation Location Lateral malleolus inferior and anterior Palpation Findings Edema,Tenderness Low Back Palpation Location Sacrum Palpation Findings Tenderness Palpation Details L5-S1 interspace and paraspinals. Upper to Mid Sacrum PT-OP-K Range of Motion Start: 08/03/19 18:35 Freq: Status: Active Protocol: Document 08/06/19 10:30 LRN (Rec: 08/06/19 11:24 LRN [id number]) Lumbar Spine Range of Motion Lumbar Spine Active Degrees Testing Position Standing Flexion 95 Extension 10 Rotation Left 20 Rotation Right 20 Lateral Flexion Left 20 Lateral Flexion Right 10 Comments No complaints of pain. Hip Goniometric Range of Motion Hip Right Passive Testing Position Supine Straight Leg Raise 85 Abduction 30 Internal Rotation 50 External Rotation 45 Left Passive Testing Position Supine Straight Leg Raise 85 Abduction 35 Internal Rotation 30 External Rotation 60 Hip ROM Limitations Hip ROM Limitations Soft Tissue Tightness Ankle and Foot Goniometric Range of Motion Ankle and Foot Right Active Ankle/Foot ROM WFL No Ankle and Foot ROM Limitations ROM Limitations Pain Comments Decreased active R ankle IV/EV PT-OP-M Strength Start: 08/03/19 18:35 Freq: Status: Active Protocol: Document 08/06/19 10:30 LRN (Rec: 08/06/19 11:48 LRN [id number]) Trunk Strength Trunk Manual Muscle Testing Testing Position Supine & Prone Flexion 5 Normal Extension 5 Normal Rotation Left 3+ Fair+ Rotation Right 3+ Fair+ Core Stabilization Fair stabilization with MMT of LE's. Hip Strength Hip Manual Muscle Testing Right Extension (S1) 3+ Fair+ Abduction 4+ Good+ Adduction 3 Fair Comments Strength is 5/5 except as shown above. Left Abduction 4+ Good+ Comments Strength is 5/5 except as shown above. Knee Strength Knee Manual Muscle Testing Right Reason Not Measured WFL Left Reason Not Measured WFL Ankle/Foot Strength Ankle and Foot Manual Muscle Testing Right Inversion 3 Fair Eversion (S1) 3 Fair Comments Pain inferior to lateral malleolus limiting strength. Left Reason Not Measured WFL Comments Generally 5/5 PT-OP-T Assessment and Plan Start: 08/03/19 18:35 Freq: Status: Active Protocol: Document 10/17/19 16:53 LRN (Rec: 10/17/19 16:57 LRN [id number]) Physical Therapy Assessment Goals Four Impairment R ankle pain Mcfp Goal (LTG) Goal to be set when POC signed and returned. LTG Duration 10/12/19 Three Impairment LBP (rated 6/10) limiting functional activities (DAVIN 9/ 50). Mcfp Goal (LTG) Decrease onset of LBP with improved function per Oswestry Disability Index of 7/50 LTG Duration 10/12/19 Pt unavailable for final assessment. Two Impairment Poor awareness of low back posture during daily activities & exercise. Short Term Goal (STG) Pt will demonstrate improved awareness of proper posture during transfers and will be able to transfer appropriately sit <-> supine with a log roll method for protection of her back. STG Duration 08/24/19 Pt unavailable for final assessment. Mcfp Goal (LTG) Pt will be able to demonstrate neutral spine positioning with exercises at her local gym with return to prior level of exercise routine (2-3x/ week at [facility] for TM & UE weight training workouts). LTG Duration 10/12/19 Pt unavailable for final assessment. One Impairment Pt lacks appropriate self care HEP for her low back and R ankle. Reacher Goal (LTG) Pt will be independent in a self care HEP for her low back and R ankle with ability to [facility] pain onset. LTG Duration 10/12/19 Pt unavailable for final assessment. Assessment Summary Assessment Pt has not attended therapy since 08/06/19 due to [facility] Covid-19 social distancing requirements. Per telephone conversation the pt reports since taking osteoporosis medications she is no longer experiencing pain; therefore no further therapy is needed. Physical Therapy Plan Discharge Physical Therapy Discharge Comments Per telephone converstation the pt reports no further therapy is needed.
== END 2019-11-01 10:09 ==
LOC: PHYS 10:11
PROVIDERS: Family Provider Nurse Practitioner Psychiatric/Mental Health; PCP Internal Medicine; Referring Provider Internal Medicine; Visit Provider Internal Medicine
DX: M54.9 Dorsalgia, unspecified (principal); M81.0 Age-related osteoporosis without current pathological fracture; M25.571 Pain in right ankle and joints of right foot; R29.898 Other symptoms and signs involving the musculoskeletal system; M62.81 Muscle weakness (generalized)
CPT/HCPCS: 97162; 97535

== ENCOUNTER → 2019-08-22 08:00 | Outpatient (CLI) | payer MEDICARE, SELFPAY ==
--- NOTE | 2019-08-22 | DI.RAD.S_ITS ---
PROCEDURE: XR FOOT RT MIN 3V INDICATIONS: rt foot ankle pain and swelling TECHNIQUE: 3 views of the foot were acquired. COMPARISON: None. FINDINGS: Bones: No fractures or dislocations, but there is moderate metatarsus primus and mild to moderate hallux valgus with bunion formation medial first metatarsal head mild in overall severity. No suspicious bony lesions. Soft tissues: No tibiotalar joint effusion. Achilles tendon appears normal. IMPRESSION: No trauma seen. Podiatry related findings as noted. By this examination underlying infection is not suspected. Dictated by: Chidi Bee M.D. on 08/22/2019 at 12:38 Approved by: Chiid Bee M.D. on 08/22/2019 at 12:39
--- NOTE | 2019-08-22 | DI.RAD.S_ITS ---
PROCEDURE: XR ANKLE RT MIN 3V INDICATIONS: rt foot ankle pain and swelling TECHNIQUE: 3 views of the ankle were acquired. COMPARISON: [facility], , ANKLE 2 VIEWS RIGHT, 05/23/2015, 12:54. FINDINGS: Bones: No fractures or dislocations. Ankle mortise is normally aligned. No suspicious bony lesions. Soft tissues: No tibiotalar joint effusion. Achilles tendon appears normal. IMPRESSION: Normal for age, source of current pain and swelling symptoms is not seen. Dictated by: Chidi Bee M.D. on 08/22/2019 at 12:38 Approved by: Chidi Bee M.D. on 08/22/2019 at 12:38
--- NOTE | 2019-08-22 | DI.ECHO.S_ITS ---
[facility] +---------+ : : [address] [place] : : : : [id number] : : : : Phone: [phone]---------+ Echocardiogram Report + + :Name: FACUNDO GUERRERO Study Date: 08/22/2019 Height: 65 in : :[facility] Weight: 132 lb : : Gender: Female BSA: 1.7 m2 : :: 1940 Age: 79 yrs BP: 118/80 mmHg: :Reason For Study: BRADYCARDIA : :Ordering Physician: Levi : :Fernando Performed By: Syl Fish : :Referring: Levi King : + + Interpretation Summary The left ventricle is normal in size. The ejection fraction is estimated to be 55-60%. There has been no significant change in LVEF since the previous study. The right ventricle is normal in size and function. There is mild to moderate mitral regurgitation. Compared to the prior echo study, there has been an increase in the severity of mitral regurgitation. The aortic valve is mildly calcified. There is mildly reduced leaflet mobility. There is no hemodynamically significant valvular aortic stenosis. There is mild tricuspid regurgitation. Compared to the prior echo exam, there has been a decrease in TR severity. The IVC is of normal diameter and collapses greater than 50% with a sniff. This suggests a low right atrial pressure of 3 mm Hg. Mild atherosclerotic plaque(s) in the aortic arch. Procedure: A two-dimensional transthoracic echocardiogram with color flow and Doppler was performed. The study quality was technically adequate. Comparison is made with the echocardiogram of 01/24/2013. The patient was in normal sinus rhythm during the exam. The patient had occasional PVCs during the exam. Left Ventricle: The left ventricle is normal in size. Proximal septal thickening is noted. There is no echo evidence for significant left ventricular outflow tract obstruction. There is no thrombus. The ejection fraction is estimated to be 55-60%. There has been no significant change since the previous study. There appears to be dyssynchrony during PVCs. MV E/A: 0.88 Med Peak E' Casper: 4.0 cm/sec E/E' med: 20.2. Right Ventricle: The right ventricle is normal in size and function. Atria: Both atria are normal in size. Both atria have remained unchanged in size since the prior echo exam. There is no Doppler evidence for an interatrial shunt. Mitral Valve: There is mild mitral annular calcification. The mitral valve leaflets are mildly calcified. The mitral valve chordae are thickened and/or calcified. There is mild to moderate mitral regurgitation. Compared to the prior echo study, there has been an increase in the severity of mitral regurgitation. Aortic Valve: The aortic valve is trileaflet. The aortic valve is mildly calcified. There is mildly reduced leaflet mobility. There is no hemodynamically significant valvular aortic stenosis. No aortic regurgitation is present. Tricuspid Valve: The tricuspid valve is normal. There is mild tricuspid regurgitation. The right ventricular systolic pressure is estimated to be at least 16 mmHg based on an estimated right atrial pressure of 3 mm Hg. Compared to the prior echo exam, there has been a decrease in TR severity. Pulmonic Valve: The pulmonic valve leaflets are thin and pliable; valve motion is normal. There is a trace or physiologic amount of pulmonic regurgitation. Great Vessels: The aortic root is normal size. The ascending aorta is at the upper limits of normal in size. Mild atherosclerotic plaque(s) in the aortic arch. The IVC is of normal diameter and collapses greater than 50% with a sniff. This suggests a low right atrial pressure of 3 mm Hg. Pericardium/ Pleura There is no pericardial effusion. There has been no significant change since the previous study. MMode/2D Measurements & Calculations LVIDd: 4.6 cm LVOT diam: 2.0 cm LVIDs: 3.5 cm Ao root diam: 2.7 cm FS: 24.7 % asc Aorta Diam: 3.5 cm EPSS: 1.2 cm Ao Arch Diam (Prox Trans): 2.5 cm IVSd: 0.94 cm LVPWd: 1.1 cm LV ulloa. diameter/BSA (cm/m^2): 2.8 LV sys. diameter/BSA (cm/m^2): 2.1 LA A2 area: 16.7 cm2 RA long axis: 4.2 cm LA A4 area: 16.8 cm2 RA area: 14.3 cm2 LA length (vol): 4.8 cm RA vol: 41.1 ml LA vol: 50.2 ml RA : 24.8 ml/m2 LA vol index: 30.3 ml/m2 IVC diam: 1.8 cm RVD1 (basal): 3.1 cm TAPSE: 2.6 cm Doppler Measurements & Calculations Ao V2 max: 134.5 cm/sec LVOT Max Casper: 70.5 cm/sec Ao V2 mean: 93.4 cm/sec LV V1 max P.0 mmHg Ao max P.2 mmHg LV V1 VTI: 15.7 cm Ao mean P.9 mmHg CASSIE(I,D): 1.6 cm2 Ao V2 VTI: 31.4 cm CASSIE(V,D): 1.7 cm2 sev ratio: 0.50 CASSIE indexed to BSA (cm^2/m^2): 0.95 MV E max casper: 81.0 cm/sec TR max casper: 180.6 cm/sec MV A max casper: 91.8 cm/sec TR max P.1 mmHg MV E/A: 0.88 PA V2 max: 67.8 cm/sec Med Peak E' Casper: 4.0 cm/sec PA V2 mean: 41.4 cm/sec E/E' med: 20.2 PA mean P.84 mmHg Lat Peak E' Casper: 6.7 cm/sec PA pr(Accel): 18.3 mmHg E/E' lat: 12.0 PA Accel Time: 0.13 sec E/e' average: 16.1 MV dec time: 0.29 sec MV P1/2t: 83.8 msec MV P1/2t max casper: 81.7 cm/sec SV(LVOT): 49.7 ml MVA(P1/2t): 2.6 cm2 Reading Physician:09:38 AM
== END ==
PROVIDERS: Family Provider Nurse Practitioner Psychiatric/Mental Health; PCP Internal Medicine; Referring Provider Internal Medicine; Visit Provider Family Medicine
DX: I08.1 Rheumatic disorders of both mitral and tricuspid valves (principal); R00.1 Bradycardia, unspecified; I70.0 Atherosclerosis of aorta; M25.571 Pain in right ankle and joints of right foot; M25.471 Effusion, right ankle
CPT/HCPCS: 73610; 73630; 93306

== ENCOUNTER → 2019-10-14 13:29 | Outpatient (CLI) | payer MEDICARE, SELFPAY ==
[2019-10-15 03:21] LABS: COVID19 Sendout Not Detected (Not Detect)
== END ==
PROVIDERS: Family Provider Nurse Practitioner Psychiatric/Mental Health; PCP Internal Medicine; Visit Provider Registered Nurse
DX: Z11.9 Encounter for screening for infectious and parasitic diseases, unspecified (principal)
CPT/HCPCS: 87635

== ENCOUNTER → 2019-10-17 08:22 | Outpatient (CLI) | payer MEDICARE, SELFPAY ==
--- NOTE | 2019-10-18 06:47 | DI.NM.S_ITS ---
DATE OF SERVICE: PROCEDURE: Exercise perfusion study. DATE OF STUDY: 10/17/2019. INDICATIONS: PVCs. RADIOPHARMACEUTICAL: 25.9 millicurie technetium-99m Myoview IV was injected at stress and 10.4 millicurie technetium-99m Myoview IV was injected at rest. CARDIAC STRESS: The patient underwent exercise perfusion study under the supervision of an attending staff. She walked on Song protocol for 5 minutes and 30 seconds, achieved 86% of target heart rate with normal blood pressure response. Functional aerobic impairment -20 percent. The patient achieved 7 METS of workload. Baseline rhythm was sinus with possible left anterior fascicular block, poor R-wave progression, nonspecific ST/T changes. During stress, there were significant artifacts and nonspecific ST/T changes. In the beginning of exercise, patient started having PVCs, which were monomorphic and mostly isolated. Occasional ventricular couplets. Continued to have isolated PVCs during exercise as well as early part of recovery. No ventricular tachycardia seen. No anginal symptoms or claudication. RAW DATA: There is increased subdiaphragmatic activity. GATED STUDY: Stress LV ejection fraction 55% without any obvious wall motion abnormalities. No transient ischemic dilatation. TID ratio 1.05, which is within normal limits. Resting end-diastolic volume 91 mL. Lung heart ratio 0.31, which is within normal limits. MYOCARDIAL PERFUSION SCAN: Stress supine and resting supine images revealed a small size mildly decreased perfusion of inferior wall, inferior apex. During prone images, there is significant improvement of the inferior wall. However, inferior apical defect remains same and there is an additional mildly decreased perfusion of distal anterior wall. That was not seen during stress supine images. CONCLUSION: I will call this study likely a normal myocardial perfusion study with evidence of diaphragmatic tissue attenuation artifact as well as shifting breast tissue attenuation artifact. The inferior wall defect, which was seen during supine images, got significantly improved during prone images. On prone images, there is a distal anterior wall defect which was not seen during stress supine suggestive of shifting breast tissue attenuation artifact. There was a fixed inferior apical defect, however, on gated study that segment is moving well. Normal wall motion goes against the diagnosis of previous transmural myocardial infarction. The patient had a perfusion study in April 2013. At that time also the patient had apical perfusion defect, which was thought due to apical thinning. At that time also patient had PVCs during exercise without any complex ectopy. At that time the patient was able to walk for 8 minutes and 16 seconds. Overall this is a low risk myocardial perfusion scan. Linda Mcgee - DONNA/anna/jeni doc#: [id number]/job#: [id number] dd: 10/17/2019 17:35:00 dt: 10/18/2019 06:19:00 DICTATING MD/COPIES TO: Vikram Bush MD COPIES MNE: NED;
== END ==
PROVIDERS: Family Provider Nurse Practitioner Psychiatric/Mental Health; PCP Internal Medicine; Referring Provider Nurse Practitioner; Visit Provider Nurse Practitioner
DX: I49.3 Ventricular premature depolarization (principal); I10 Essential (primary) hypertension
CPT/HCPCS: 36415; 78452; 80053; 80061; 83735; 84443; 93017; A9502

== ENCOUNTER → 2019-10-17 08:26 | Outpatient (CLI) | payer MEDICARE, SELFPAY ==
[2019-10-17 10:32] LABS: Alanine Aminotransferase 19 IU/L (<35); Albumin 4.5 g/dL (3.5-5.0); Albumin Globulin Ratio 1.4 (1.0-2.8); Alkaline Phosphatase 118 U/L (38-126); Aspartate Aminotransferase 23 IU/L (14-36); BUN Creatinine Ratio 15.2 (6-22); Bilirubin Total 0.9 mg/dL (0.2-1.3); Blood Urea Nitrogen 17 mg/dL (7-17); Calcium 9.7 mg/dL (8.4-10.2); Carbon Dioxide 28 mmol/L (22-32); Chloride 102 mmol/L (98-107); Cholesterol 231 mg/dL (140-199); Estimated Glomerular Filt Rate 46.9 mL/min (>60); Globulin 3.3 g/dL (1.7-4.1); Glucose 100 mg/dL (80-110); HDL Cholesterol 40 mg/dL (40-60); HEMOLYSIS < 15 (0-50); LDL Cholesterol Calculated 148 mg/dL (<100); Magnesium 2.2 mg/dL (1.6-2.3); Sodium 139 mmol/L (137-145); Total Protein 7.8 g/dL (6.3-8.2); Triglycerides 217 mg/dL (35-150)
[2019-10-17 10:37] LABS: Potassium 5.2 mmol/L (3.4-5.1)
== END ==
PROVIDERS: Family Provider Nurse Practitioner Psychiatric/Mental Health; PCP Internal Medicine; Referring Provider Internal Medicine Cardiovascular Disease; Visit Provider Internal Medicine Cardiovascular Disease
DX: I49.3 Ventricular premature depolarization (principal); I10 Essential (primary) hypertension
CPT/HCPCS: 36415; 80053; 80061; 83735; 84443

== ENCOUNTER → 2020-03-21 15:33 | Outpatient (CLI) | payer MEDICARE, SELFPAY ==
[2020-03-23 09:31] LABS: COVID19 Sendout Not Detected (Not Detect)
== END ==
PROVIDERS: Family Provider Nurse Practitioner Psychiatric/Mental Health; PCP Internal Medicine; Visit Provider Physician Assistant
DX: Z11.59 Encounter for screening for other viral diseases (principal)
CPT/HCPCS: 87635

== ENCOUNTER → 2020-07-18 14:30 | Outpatient (CLI) | payer MEDICARE, SELFPAY ==
[2020-07-18 14:52] LABS: Add Manual Diff / Slide Review NO; Basophils Absolute Auto 0 /uL (0-100); Basophils Percent Auto 0.5 % (0-2); Eosinophils Absolute Auto 100 /uL (0-450); Eosinophils Percent Auto 1.8 % (2-4); Hematocrit 40.7 % (36-46); Hemoglobin 13.7 g/dL (12.0-16.0); Lymphocytes Absolute Auto 1700 /uL (1100-4500); Lymphocytes Percent Auto 24.6 % (25-40); Mean Corpuscular HGB Conc 33.7 % (30-36); Mean Corpuscular Hemoglobin 30.6 PG (26-34); Mean Corpuscular Volume 90.7 fL (80-100); Monocytes Absolute Auto 500 /uL (0-900); Monocytes Percent Auto 6.7 % (3-14); Neutrophils Absolute Auto 4600 /uL (1500-7000); Neutrophils Percent Auto 66.4 % (50-75); Platelet Count 273 X10^3/uL (150-400); Red Blood Cell Count 4.49 X10^6/uL (4.0-5.2); White Blood Cell Count 6.9 X10^3/uL (4.5-11.0)
[2020-07-18 15:34] LABS: Alanine Aminotransferase 19 IU/L (<35); Albumin 4.5 g/dL (3.5-5.0); Albumin Globulin Ratio 1.5 (1.0-2.8); Alkaline Phosphatase 101 U/L (38-126); Aspartate Aminotransferase 28 IU/L (14-36); BUN Creatinine Ratio 34.8 (6-22); Bilirubin Total 0.9 mg/dL (0.2-1.3); Blood Urea Nitrogen 39 mg/dL (7-17); Carbon Dioxide 30 mmol/L (22-32); Chloride 102 mmol/L (98-107); Estimated Glomerular Filt Rate 46.8 mL/min (>60); Globulin 3.1 g/dL (1.7-4.1); Glucose 101 mg/dL (80-110); HEMOLYSIS < 15 (0-50); Potassium 4.8 mmol/L (3.4-5.1); Sodium 137 mmol/L (137-145); Total Protein 7.6 g/dL (6.3-8.2)
[2020-07-18 15:51] LABS: Vitamin D 25 Hydroxy (D3) 52.2 ng/mL (30.0-100.0)
== END ==
PROVIDERS: Family Provider Nurse Practitioner Psychiatric/Mental Health; PCP Internal Medicine; Referring Provider Internal Medicine; Visit Provider Internal Medicine
DX: F41.9 Anxiety disorder, unspecified (principal); N18.2 Chronic kidney disease, stage 2 (mild); M81.0 Age-related osteoporosis without current pathological fracture
CPT/HCPCS: 36415; 80053; 82306; 85025

== ENCOUNTER 2021-02-10 13:07 | Emergency (ER) | payer MEDICARE, SELFPAY ==
[2021-02-10 13:14] VITALS: BP 126/74; PULSE 70; RESP 16; TEMP 36.6; O2SAT 98; BMI 21.9
[2021-02-10 13:56] LABS: Add Manual Diff / Slide Review NO; Basophils Absolute Auto 0 /uL (0-100); Basophils Percent Auto 0.7 % (0-2); Eosinophils Absolute Auto 100 /uL (0-450); Eosinophils Percent Auto 1.6 % (2-4); Hematocrit 40.8 % (36-46); Hemoglobin 13.7 g/dL (12.0-16.0); Lymphocytes Absolute Auto 1500 /uL (1100-4500); Lymphocytes Percent Auto 28.2 % (25-40); Mean Corpuscular HGB Conc 33.5 % (30-36); Mean Corpuscular Hemoglobin 30.5 PG (26-34); Mean Corpuscular Volume 90.8 fL (80-100); Monocytes Absolute Auto 500 /uL (0-900); Monocytes Percent Auto 9.2 % (3-14); Neutrophils Absolute Auto 3200 /uL (1500-7000); Neutrophils Percent Auto 60.3 % (50-75); Platelet Count 255 X10^3/uL (150-400); Red Blood Cell Count 4.49 X10^6/uL (4.0-5.2); Red Cell Distribution Width 13.1 % (11.6-14.8); White Blood Cell Count 5.3 X10^3/uL (4.5-11.0)
[2021-02-10 13:58] LABS: INR 1.1 (0.9-1.3); Prothrombin Time 11.7 SECONDS (10.1-12.7)
[2021-02-10 14:01] LABS: PTT Partial Thromboplastin Tim 44 SECONDS (26.4-36.2)
[2021-02-10 14:12] LABS: Alanine Aminotransferase 19 IU/L (<35); Albumin 4.6 g/dL (3.5-5.0); Albumin Globulin Ratio 1.6 (1.0-2.8); Alkaline Phosphatase 79 U/L (38-126); Aspartate Aminotransferase 30 IU/L (14-36); Bilirubin Total 0.8 mg/dL (0.2-1.3); Blood Urea Nitrogen 29 mg/dL (7-17); Carbon Dioxide 21 mmol/L (22-32); Chloride 107 mmol/L (98-107); Estimated Glomerular Filt Rate > 60.0 mL/min (>60); Globulin 2.8 g/dL (1.7-4.1); Glucose 109 mg/dL (80-110); HEMOLYSIS 31 (0-50); Potassium 4.7 mmol/L (3.4-5.1); Sodium 138 mmol/L (137-145); Total Protein 7.4 g/dL (6.3-8.2)
--- NOTE | 2021-02-10 15:00 | PC.NURSE ---
Pt states that when she increased her Melatonin dose she started getting large hematomas on bilat upper extremities. She Googled side effects of Melatonin and realized it could be from that and stopped taking it. Hematomas have since improved but pt is still concerned and wishes to be evaluated.
[2021-02-10 15:51] VITALS: BP 169/77; PULSE 67; O2SAT 98
--- NOTE | 2021-02-11 16:12 | ED.RECABL ---
HPI - Recheck/Abnormal Lab/Rx <Phyllis Pardo PA-C - Last Filed: 02/11/21 16:35> General Chief Complaint: Recheck/Abnormal Lab/Rx Stated Complaint: bleeding in the veins-sent by walk in clinic Time Seen by Provider: 02/10/21 14:11 Source: patient Mode of arrival: Ambulatory Limitations: no limitations History of Present Illness HPI narrative: 81-year-old female with past medical history anxiety, chronic renal failure, osteoporosis, depression, PTSD presents to the ED for 6 months of frequent bruising in bilateral forearms. Patient was seen in the [facility] today, labs and coags ordered, sent to the ED for further evaluation. patient states that she has been experiencing frequent, bruising and hematomas. denies trauma, anticoagulant use. Denies pain, swelling, tingling, numbness, weakness. Patient states that she has been taking high doses of melatonin in the past 6 months and that the bruising started since she started taking the melatonin. Patient recently reduced her dosage, following which her symptoms improved. patient's PCP Dr. Jack is unable to see her for 2 weeks, which is why the patient decided to come in to the [facility]. Denies fever, chills, chest pain, shortness of breath, nausea, vomiting, abdominal pain, syncope, lightheadedness, dizziness. Related Data Home Medications Medication Instructions Recorded Confirmed calcium carbonate 500 mg calcium 1,500 mg PO DAILY tab 03/08/19 02/19/21 (1,250 mg) tablet magnesium oxide 400 mg PO DAILY 03/08/19 02/19/21 Previous Rx's Medication Instructions Recorded alendronate 70 mg tablet 70 mg PO QWEEK #12 tab 02/15/20 bupropion HCl 300 mg 24 hr tablet, 300 mg PO QDAY #30 tab 01/06/21 extended release sertraline 100 mg tablet 100 mg PO DAILY #30 tab 02/13/21 diazepam 5 mg tablet 5 mg PO DAILY PRN #30 tab 02/25/21 Allergies Allergy/AdvReac Type Severity Reaction Status Date / Time Sulfa (Sulfonamide Allergy Severe rash Verified 02/19/21 11:13 Antibiotics) [SULFA (SULFONAMIDE ANTIBIOTICS)] Penicillins [PENICILLINS] Allergy Unknown Verified 02/19/21 11:13 Iodinated Contrast Media Allergy Facial Verified 02/19/21 11:13 [Iodinated Contrast- Oral swelling and IV Dye] and rash codeine [CODEINE] AdvReac Mild upset Verified 02/19/21 11:13 stomach Review of Systems <Phyllis Pardo PA-C - Last Filed: 02/11/21 16:35> Constitutional Constitutional: Denies chills, Denies fatigue, Denies fever(s), Denies frequent falls, Denies lethargy and Denies weakness ENT Ears, Nose, Mouth, and Throat: Denies dizziness Cardiovascular Cardiovascular: Denies chest pain, Denies irregular heart rhythm, Denies lightheadedness, Denies palpitations, Denies dyspnea, Denies dyspnea on exertion and Denies orthopnea Respiratory Respiratory: Denies cough, Denies dyspnea, Denies dyspnea on exertion and Denies wheezing Gastrointestinal Gastrointestinal: Denies abdominal pain, Denies change in bowel habits, Denies diarrhea, Denies nausea and Denies vomiting Musculoskeletal Musculoskeletal: Denies numbness Integumentary/Breasts Skin/Breast: Denies pruritus, Denies erythema, Denies rash and Denies wounds Neurologic Neurologic: Denies behavioral changes, Denies confusion, Denies dizziness, Denies frequent falls, Denies numbness and Denies weakness Psychiatric Psychiatric: Denies anxiety, Denies behavioral changes, Denies confusion, Denies depression, Denies homicidal ideation and Denies suicidal ideation Endocrine Endocrine: Denies fatigue, Denies flushing and Denies palpitations Hematologic/Lymphatic Hematologic/Lymphatic: Reports easy bruising On Anticoagulants: No Allergic/Immunologic Allergic/Immunologic: Denies wheezing Patient History <Phyllis Pardo PA-C - Last Filed: 02/11/21 16:35> Medical History Anxiety disorder, unspecified Chronic renal failure, stage 2 (mild) Diverticular disease of colon IBS (irritable bowel syndrome) Major depressive disorder, recurrent, in partial remission Osteoporosis PTSD (post-traumatic stress disorder) QT prolongation Surgical History S/P exploratory laparotomy (~1991) S/P knee surgery (~2005) S/P tonsillectomy Status post cholecystectomy Social History household members: spouse Smoking Status: Never smoker Smoking Status: Never smoker alcohol intake frequency: 0-2 drinks per day Substance Use Type: does not use Exam <Phyllis Pardo PA-C - Last Filed: 02/11/21 16:35> Initial Vital Signs Initial Vital Signs: Vital Signs Temperature 97.8 F 02/10/21 13:14 Pulse Rate 70 02/10/21 13:14 Respiratory Rate 16 02/10/21 13:14 Blood Pressure 126/74 02/10/21 13:14 Pulse Oximetry 98 02/10/21 13:14 Const General: cooperative Eyes General: appearance normal, both eyes and all related structures Eyelids: eyelids normal Conjunctivae: conjunctivae normal Sclera: sclerae normal Pupils: PERRL EOM: EOM intact bilaterally Resp Effort & Inspection: normal respiratory effort, able to speak in complete sentences, no respiratory distress and no use of accessory muscles Auscultation: clear to auscultation bilaterally, no rales, no rhonchi and no wheezes Cardio Rate: regular rate Rhythm: regular rhythm Heart Sounds: no click, no gallops, no murmurs and no rubs Pulses: normal peripheral pulses GI Inspection: non-distended Palpation: soft, no hepatosplenomegaly, No guarding, No pulsatile mass and No tender Auscultation: normal bowel sounds Back/Spine/Pelvis Back: No CVA tenderness Cervical Spine: cervical ROM normal and No pain with cervical ROM Thoracic/Lumbar Spine: thoracic and lumbar spine normal to inspection Skin General: no rashes or lesions noted, No jaundice, No petechiae and warm Lesions: no lesions Other: Multiple bruises, small hematomas on bilateral forearms. No swelling, erythema, not TTP. Neuro General: patient alert, patient oriented x3, gait normal and no focal motor deficits Speech: speech normal Extrem General: full ROM, no clubbing, cyanosis or edema, no pedal edema and no calf tenderness Psych Appearance: well kempt Mental Status: mental status grossly normal Attitude: cooperative Thought Content: normal and suicidality Judgment: judgment good <Satish Mendoza DO - Last Filed: 02/26/21 07:12> Initial Vital Signs Initial Vital Signs: Vital Signs Temperature 97.8 F 02/10/21 13:14 Pulse Rate 70 02/10/21 13:14 Respiratory Rate 16 02/10/21 13:14 Blood Pressure 126/74 02/10/21 13:14 Pulse Oximetry 98 02/10/21 13:14 MDM - Recheck/Abnormal Lab/Rx <Phyllis Pardo PA-C - Last Filed: 02/11/21 16:35> Medical Records Attestation: I reviewed the patient's medical records. Lab Data Attestation: I reviewed the patient's lab results. Lab results narrative: Mildly elevated APTT, lower than prior value. Reassuring H/H, platelets Result diagrams: 02/10/21 13:40 02/10/21 13:40 Labs: Lab Results 02/10/21 02/10/21 02/10/21 Range/Units 13:40 13:40 13:40 WBC 5.3 (4.5-11.0) X10^3/uL RBC 4.49 (4.0-5.2) X10^6/uL Hgb 13.7 (12.0-16.0) g/dL Hct 40.8 (36-46) % MCV 90.8 (80-100) fL MCH 30.5 (26-34) PG MCHC 33.5 (30-36) % RDW 13.1 (11.6-14.8) % Plt Count 255 (150-400) X10^3/uL Neut % (Auto) 60.3 (50-75) % Lymph % (Auto) 28.2 (25-40) % [place] % (Auto) 9.2 (3-14) % Eos % (Auto) 1.6 L (2-4) % Baso % (Auto) 0.7 (0-2) % Neut # (Auto) 3200 (1240-1857) /uL Lymph # (Auto) 1500 (6936-3893) /uL [place] # (Auto) 500 (0-900) /uL Eos # (Auto) 100 (0-450) /uL Baso # (Auto) 0 (0-100) /uL PT 11.7 (10.1-12.7) SECONDS INR 1.1 (0.9-1.3) APTT 44 H D (26.4-36.2) SECONDS Sodium 138 (137-145) mmol/L Potassium 4.7 (3.4-5.1) mmol/L Chloride 107 (98-107) mmol/L Carbon Dioxide 21 L (22-32) mmol/L BUN 29 H (7-17) mg/dL Creatinine 0.88 (0.52-1.04) mg/dL Estimated GFR > 60.0 (>60) mL/min BUN/Creatinine Ratio 33.0 H (6-22) Glucose 109 (80-110) mg/dL Calcium 10.0 (8.4-10.2) mg/dL Total Bilirubin 0.8 (0.2-1.3) mg/dL AST 30 (14-36) IU/L ALT 19 (<35) IU/L Alkaline Phosphatase 79 (38-126) U/L Total Protein 7.4 (6.3-8.2) g/dL Albumin 4.6 (3.5-5.0) g/dL Globulin 2.8 (1.7-4.1) g/dL Albumin/Globulin Ratio 1.6 (1.0-2.8) MDM Narrative Medical decision making narrative: 1-year-old female with past medical history anxiety, chronic renal failure, osteoporosis, depression, PTSD presents to the ED for 6 months of frequent bruising in bilateral forearms. Given reassuring VS, labs, okay to follow up with PCP. Will call Dr. Jack office to get a sooner follow-up appointment. Will discharge home. <Satish Mendoza DO - Last Filed: 02/26/21 07:12> Lab Data Labs: Lab Results 02/10/21 02/10/21 02/10/21 Range/Units 13:40 13:40 13:40 WBC 5.3 (4.5-11.0) X10^3/uL RBC 4.49 (4.0-5.2) X10^6/uL Hgb 13.7 (12.0-16.0) g/dL Hct 40.8 (36-46) % MCV 90.8 (80-100) fL MCH 30.5 (26-34) PG MCHC 33.5 (30-36) % RDW 13.1 (11.6-14.8) % Plt Count 255 (150-400) X10^3/uL Neut % (Auto) 60.3 (50-75) % Lymph % (Auto) 28.2 (25-40) % [place] % (Auto) 9.2 (3-14) % Eos % (Auto) 1.6 L (2-4) % Baso % (Auto) 0.7 (0-2) % Neut # (Auto) 3200 (6051-9423) /uL Lymph # (Auto) 1500 (1077-1037) /uL [place] # (Auto) 500 (0-900) /uL Eos # (Auto) 100 (0-450) /uL Baso # (Auto) 0 (0-100) /uL PT 11.7 (10.1-12.7) SECONDS INR 1.1 (0.9-1.3) APTT 44 H D (26.4-36.2) SECONDS Sodium 138 (137-145) mmol/L Potassium 4.7 (3.4-5.1) mmol/L Chloride 107 (98-107) mmol/L Carbon Dioxide 21 L (22-32) mmol/L BUN 29 H (7-17) mg/dL Creatinine 0.88 (0.52-1.04) mg/dL Estimated GFR > 60.0 (>60) mL/min BUN/Creatinine Ratio 33.0 H (6-22) Glucose 109 (80-110) mg/dL Calcium 10.0 (8.4-10.2) mg/dL Total Bilirubin 0.8 (0.2-1.3) mg/dL AST 30 (14-36) IU/L ALT 19 (<35) IU/L Alkaline Phosphatase 79 (38-126) U/L Total Protein 7.4 (6.3-8.2) g/dL Albumin 4.6 (3.5-5.0) g/dL Globulin 2.8 (1.7-4.1) g/dL Albumin/Globulin Ratio 1.6 (1.0-2.8) Discharge Plan Departure Patient Disposition: Home Clinical Impression: Bruise of both arms Instructions: DI for Contusion Prescriptions: No Action magnesium oxide 400 mg magnesium tablet 400 mg PO DAILY RF: 0 calcium carbonate 500 mg calcium (1,250 mg) tablet 1,500 mg PO DAILY RF: 0 bupropion HCl 300 mg tablet extended release 24 hr 300 mg PO QDAY Qty: 30 RF: 4 sertraline 100 mg tablet 100 mg PO DAILY Qty: 30 RF: 1 diazepam 5 mg tablet 5 mg PO DAILY PRN (Reason: anxiety) Qty: 30 RF: 0 alendronate 70 mg tablet 70 mg PO QWEEK Qty: 12 RF: 11 Referrals: Ranjeet Jack MD [Primary Care Provider] - <Satish Mendoza, - Last Filed: 02/26/21 07:12> Cosign ED Attending Cosignature Attestation: Dr Mendoza Co-Sign Statement: I was available for consultation during this patient's emergency department visit. This chart is signed by myself for administrative purposes only. I did not have direct contact with this patient during this visit. They were seen independently by the APC.
== END 2021-02-10 15:52 | disposition home or self-care (01) ==
PROVIDERS: Emergency Medicine; Emergency Provider Student in an Organized Health Care Education/Training Program; Family Provider Nurse Practitioner Psychiatric/Mental Health; PCP Internal Medicine
DX: S50.12XA Contusion of left forearm, initial encounter (principal); S40.021A Contusion of right upper arm, initial encounter
CPT/HCPCS: 80053; 85025; 85610; 85730; 99281; 99283

== ENCOUNTER 2021-02-18 13:16 | Emergency (ER) | payer MEDICARE, SELFPAY ==
[2021-02-18 13:19] VITALS: BP 139/91; PULSE 78; RESP 20; TEMP 36.6; O2SAT 97
--- NOTE | 2021-02-18 15:58 | DI.RAD.S_ITS ---
PROCEDURE: XR WRIST RT MIN 3V INDICATIONS: mechanical fall onto outstretched arm, pain right wrist TECHNIQUE: 4 views of the wrist were acquired. COMPARISON: None. FINDINGS: Bones: Generalized decrease in osseous mineralization noted. No evidence of fracture. Joint spaces are relatively preserved Scaphoid view: Unremarkable Soft tissues: No suspicious soft tissue calcifications. IMPRESSION: Osteopenia without fracture or foreign body Approved by: Lei Levy M.D. on 02/18/2021 at 15:31
[2021-02-18] MEDS: TET,DIPH,PERTUSS(ACELL),VAC/PF 0.5 ML SYRINGE IM (16:54)
--- NOTE | 2021-02-18 20:06 | ED_ITS ---
HPI - Wound/Laceration <Bessie Austin PA-C - Last Filed: 02/18/21 20:15> General Chief Complaint: Wound/Laceration Stated Complaint: Fell on right hand/? stitches Time Seen by Provider: 02/18/21 16:00 Source: patient Mode of arrival: Ambulatory History of Present Illness HPI narrative: 81-year-old female PMH osteoporosis who presents to the ER complaining ground level fall was in tears to the right forearm. She states that she was walking on the sidewalk when she went to go adjust her mask she tripped into a pothole. She fell forward onto her arms and sustained skin tears. Someone who witnessed the fall who was on site was a nurse and irrigated the wound and called EMS. Denies anticoagulant use, numbness, tingling, joint pain, or additional injury. Unknown last tetanus. Related Data Home Medications Medication Instructions Recorded Confirmed calcium carbonate 500 mg calcium 1,500 mg PO DAILY tab 03/08/19 02/19/21 (1,250 mg) tablet magnesium oxide 400 mg PO DAILY 03/08/19 02/19/21 Previous Rx's Medication Instructions Recorded alendronate 70 mg tablet 70 mg PO QWEEK #12 tab 02/15/20 bupropion HCl 300 mg 24 hr tablet, 300 mg PO QDAY #30 tab 01/06/21 extended release diazepam 5 mg tablet 5 mg PO DAILY PRN #30 tab 02/13/21 sertraline 100 mg tablet 100 mg PO DAILY #30 tab 02/13/21 Allergies Allergy/AdvReac Type Severity Reaction Status Date / Time Sulfa (Sulfonamide Allergy Severe rash Verified 02/19/21 11:13 Antibiotics) [SULFA (SULFONAMIDE ANTIBIOTICS)] Penicillins [PENICILLINS] Allergy Unknown Verified 02/19/21 11:13 Iodinated Contrast Media Allergy Facial Verified 02/19/21 11:13 [Iodinated Contrast- Oral swelling and IV Dye] and rash codeine [CODEINE] AdvReac Mild upset Verified 02/19/21 11:13 stomach Review of Systems <Bessie Austin PA-C - Last Filed: 02/18/21 20:15> Review of Systems Narrative: General: denies fever, chills Head/Neck: denies head trauma, neck pain Eyes: Denies eye pain, vision change ENT: Denies epistaxis, mouth pain Cardio: denies chest pain, palpitations Respiratory: denies shortness of breath, cough GI: denies abdominal pain, vomiting : denies flank pain, hematuria MSK: denies joint pain, muscle weakness Skin: (+) laceration. Denies rash Neuro: denies LOC, numbness, weakness, loss of sensory/motor function Patient History <Bessie Austin PA-C - Last Filed: 02/18/21 20:15> Medical History Anxiety disorder, unspecified Chronic renal failure, stage 2 (mild) Diverticular disease of colon IBS (irritable bowel syndrome) Major depressive disorder, recurrent, in partial remission Osteoporosis PTSD (post-traumatic stress disorder) QT prolongation Surgical History S/P exploratory laparotomy (~1991) S/P knee surgery (~2005) S/P tonsillectomy Status post cholecystectomy Social History household members: spouse Smoking Status: Never smoker Smoking Status: Never smoker alcohol intake frequency: 0-2 drinks per day Substance Use Type: does not use Exam <Bessie Austin PA-C - Last Filed: 02/18/21 20:15> Narrative Exam Narrative: Independently reviewed vitals signs and nursing notes. General: Awake, alert, nontoxic, no cardiorespiratory distress Head/Neck: Atraumatic, neck full range of motion Eyes: EOMI, conjunctiva normal Nose: nares patent, no rhinorrhea Cardio: Regular rate and rhythm, no peripheral edema Respiratory: respirations unlabored without wheezing, stridor, or rales. No retractions. GI: Abdomen soft, nontender MSK: Nontender with full range of motion to the right upper extremity. Moves all extremities, neurovascularly intact Skin: Skin flap approximately 2 in x 1 in to the dorsum of the right distal forearm. To small 1 cm skin flaps to the dorsum of the right hand. Normal capillary refill, no rash Neuro: Normal speech and cognition, normal gait Initial Vital Signs Initial Vital Signs: Vital Signs Temperature 97.9 F 02/18/21 13:19 Pulse Rate 78 02/18/21 13:19 Respiratory Rate 20 02/18/21 13:19 Blood Pressure 139/91 H 02/18/21 13:19 Pulse Oximetry 97 02/18/21 13:19 <Carol Smith DO - Last Filed: 02/23/21 02:26> Initial Vital Signs Initial Vital Signs: Vital Signs Temperature 97.9 F 02/18/21 13:19 Pulse Rate 78 02/18/21 13:19 Respiratory Rate 20 02/18/21 13:19 Blood Pressure 139/91 H 02/18/21 13:19 Pulse Oximetry 97 02/18/21 13:19 Procedures <Bessie Austin PA-C - Last Filed: 02/18/21 20:15> Laceration Repair Laceration 1: Time of procedure: 16:50 Site: hand Side (If applicable): right Description: flap Depth: simple, single layer Pre-repair: wound explored, irrigated extensively and deep structures intact Skin layer closed with: steri-strips (with dermabond) Course <Bessie Austin PA-C - Last Filed: 02/18/21 20:15> Orders Ordered: Discontinued Medications Diphtheria/Tetanus/Acell Pertussis (Tet,Diph,Pertuss(Acell),Vac/Pf 0.5 Ml Syringe) 0.5 ml IM .ONCE ONE Stop: 02/18/21 15:59 Last Admin: 02/18/21 16:54 Dose: 0.5 ml Documented by: BTONER Vital Signs Vital signs: Vital Signs - 8 hr 02/18/21 13:19 Temperature 97.9 F Pulse Rate 78 Respiratory Rate 20 Blood Pressure 139/91 H Pulse Oximetry 97 <Carol Smith DO - Last Filed: 02/23/21 02:26> Orders Ordered: Discontinued Medications Diphtheria/Tetanus/Acell Pertussis (Tet,Diph,Pertuss(Acell),Vac/Pf 0.5 Ml Syringe) 0.5 ml IM .ONCE ONE Stop: 02/18/21 15:59 Last Admin: 02/18/21 16:54 Dose: 0.5 ml Documented by: BTONER Vital Signs Vital signs: Vital Signs - 8 hr 02/18/21 13:19 Temperature 97.9 F Pulse Rate 78 Respiratory Rate 20 Blood Pressure 139/91 H Pulse Oximetry 97 MDM - Wound/Laceration <Bessie Austin PA-C - Last Filed: 02/18/21 20:15> Imaging Data Extremity x-ray #1: Radiologist's Impression: PROCEDURE: XR WRIST RT MIN 3V INDICATIONS: mechanical fall onto outstretched arm, pain right wrist TECHNIQUE: 4 views of the wrist were acquired. COMPARISON: None. FINDINGS: Bones: Generalized decrease in osseous mineralization noted. No evidence of fracture. Joint spaces are relatively preserved Scaphoid view: Unremarkable Soft tissues: No suspicious soft tissue calcifications. IMPRESSION: Osteopenia without fracture or foreign body Approved by: Lei Levy M.D. on 02/18/2021 at 15:31 MDM Narrative Medical decision making narrative: 81 yo female who sustained a ground level fall with right wrist skin tears which were repaired in the ED. Wrist x-ray without acute findings. Tdap updated today. Was started on prophylactic antibiotics as wound did have gross contamination with as fall which was copiously irrigated and removed. No evidence of uncontrolled hemorrhage, infection, open fracture/joint, and deep injury, or damage to tendons, nerves, or blood vessels. Follow-up with your PCP as directed within 1 week or sooner if new/worsening symptoms arise. Discharge Plan Departure Patient Disposition: Home Clinical Impression: Skin tear of right upper extremity, Fall Instructions: How to Care for a Laceration After Repair, DI for Laceration Repair-Skin Glue Activity Restrictions/Additional Instructions: *You have been diagnosed with [skin tear of the right upper extremity] *What to do: [X] New medication prescriptions sent to your pharmacy: [[facility]] [ ] New medication written as a paper prescription [ ] No new medications given Tdap updated today. Dermabond and Steri-Strips will gradually fall off over the next 7-10 days. Please keep wound clean, dry, wash with soap and water at least twice a day. You have been prescribed an antibiotic to take for the next 3 days to prevent infection. Follow-up with your PCP as scheduled tomorrow. * Please follow-up with your primary care provider in 2-3 days, call for an appointment. Let them know you were seen in the emergency department and that we ask you to be seen in follow-up. * if you do not have a primary care provider, please contact the [facility] Resource line at [phone]. They will ask some questions about your medical history and help to get up with a doctor in the community. * Return to the if you should have any new, worsening, or concerning symptoms, such as [ ]. Prescriptions: No Action magnesium oxide 400 mg magnesium tablet 400 mg PO DAILY RF: 0 calcium carbonate 500 mg calcium (1,250 mg) tablet 1,500 mg PO DAILY RF: 0 bupropion HCl 300 mg tablet extended release 24 hr 300 mg PO QDAY Qty: 30 RF: 4 sertraline 100 mg tablet 100 mg PO DAILY Qty: 30 RF: 1 diazepam 5 mg tablet 5 mg PO DAILY PRN (Reason: anxiety) Qty: 30 RF: 5 alendronate 70 mg tablet 70 mg PO QWEEK Qty: 12 RF: 11 Referrals: Ranjeet Jack MD [Primary Care Provider] - <Carol Smith DO - Last Filed: 02/23/21 02:26> Cosign ED Attending Svetlanaature Attestation: I was immediately available in the department for consultation. Documentation has been reviewed.
== END 2021-02-18 17:31 | disposition home or self-care (01) ==
PROVIDERS: Emergency Provider Physician Assistant; Family Provider Nurse Practitioner Psychiatric/Mental Health; PCP Internal Medicine
DX: S51.811A Laceration without foreign body of right forearm, initial encounter (principal); S61.411A Laceration without foreign body of right hand, initial encounter; W01.198A Fall on same level from slipping, tripping and stumbling with subsequent striking against other object, initial encounter; Z23 Encounter for immunization
CPT/HCPCS: 73110; 90471; 99283; 90715

== ENCOUNTER → 2021-02-19 12:14 | Outpatient (CLI) | payer MEDICARE, SELFPAY ==
[2021-02-19 13:49] LABS: C-Reactive Protein Quant 1.2 mg/dL (<1.0)
[2021-02-19 14:30] LABS: Erythrocyte Sedimentation Rate 21 MM/HR (0-20)
[2021-02-19 14:37] LABS: Vitamin B12 494 pg/mL (239-931)
== END ==
PROVIDERS: Family Provider Nurse Practitioner Psychiatric/Mental Health; PCP Internal Medicine; Referring Provider Internal Medicine; Visit Provider Internal Medicine
DX: F33.1 Major depressive disorder, recurrent, moderate (principal); F41.9 Anxiety disorder, unspecified; N18.2 Chronic kidney disease, stage 2 (mild); R41.3 Other amnesia
CPT/HCPCS: 36415; 82607; 84443; 85651; 86140

== ENCOUNTER → 2021-03-05 16:22 | Outpatient (CLI) | payer MEDICARE, SELFPAY ==
--- NOTE | 2021-03-05 16:24 | DI.MRI.S_ITS ---
PROCEDURE: MR HEAD/BRAIN WO/W CON INDICATIONS: memory loss TECHNIQUE: Noncontrast axial T1 spin echo, axial T2 fast spin echo, sagittal and axial FLAIR, coronal T2 fast spin echo, axial gradient echo, axial diffusion and ADC through the brain. After the administration of contrast, axial and coronal T1 spin echo with fat saturation through the brain. COMPARISON: None. FINDINGS: Image quality: Excellent. CSF spaces: Basal cisterns are patent. No extra-axial fluid collections. Ventricles are normal in size and shape. Brain: No midline shift. No intracranial bleeds or masses. No abnormal intracranial enhancement. There is cerebral volume loss for age. There is periventricular white matter chronic small vessel ischemic change. The brainstem appears normal. Diffusion-weighted images demonstrate no acute ischemic insults. No chronic ischemic insults. Normal intravascular flow voids are present. Skull and face: Calvarial marrow is normal in signal. Orbits appear normal. Note is made of bilateral lens replacements. Sinuses: Sinuses and mastoids appear clear. IMPRESSION: Note is made of age-appropriate brain parenchymal volume loss and chronic small vessel ischemic changes. No findings of acute or subacute infarction can be seen. No masses or abnormal enhancement can be seen. Negative for hydrocephalus. Dictated by: Dylon Blood M.D. on 03/05/2021 at 16:53 Approved by: Dylon Blood M.D. on 03/05/2021 at 16:54
== END ==
PROVIDERS: Family Provider Nurse Practitioner Psychiatric/Mental Health; PCP Internal Medicine; Referring Provider Internal Medicine; Visit Provider Internal Medicine
DX: R41.3 Other amnesia (principal)
CPT/HCPCS: 70553; A9579

== ENCOUNTER 2021-04-07 23:22 | Emergency (ER) | payer MEDICARE, SELFPAY ==
[2021-04-07 23:39] VITALS: BP 175/75; PULSE 75; RESP 15; TEMP 36.5; O2SAT 96; BMI 22.3
--- NOTE | 2021-04-08 00:30 | ED.WOUNDLAC ---
HPI - Wound/Laceration General Chief Complaint: Wound/Laceration Stated Complaint: cat cut her right hand Time Seen by Provider: 04/07/21 23:29 Source: patient Mode of arrival: Ambulatory Limitations: no limitations History of Present Illness HPI narrative: 81-year-old woman with history of depression anxiety and osteoporosis presents after her CT accidentally scratched her hand lacerating the dorsum and also cutting into of vein. She had quite a bit of bleeding that was controlled at home and comes in for evaluation. Related Data Home Medications Medication Instructions Recorded Confirmed calcium carbonate 500 mg calcium 1,500 mg PO DAILY tab 03/08/19 02/19/21 (1,250 mg) tablet magnesium oxide 400 mg PO DAILY 03/08/19 02/19/21 Previous Rx's Medication Instructions Recorded bupropion HCl 300 mg 24 hr tablet, 300 mg PO QDAY #30 tab 01/06/21 extended release sertraline 100 mg tablet 100 mg PO DAILY #30 tab 02/13/21 diazepam 5 mg tablet 5 mg PO DAILY PRN #30 tab 03/28/21 alendronate 70 mg tablet 70 mg PO QWEEK #12 tab 04/06/21 doxycycline hyclate 100 mg capsule 100 mg PO BID #10 cap 04/08/21 Allergies Allergy/AdvReac Type Severity Reaction Status Date / Time Sulfa (Sulfonamide Allergy Severe rash Verified 02/19/21 11:13 Antibiotics) [SULFA (SULFONAMIDE ANTIBIOTICS)] Penicillins [PENICILLINS] Allergy Unknown Verified 02/19/21 11:13 Iodinated Contrast Media Allergy Facial Verified 02/19/21 11:13 [Iodinated Contrast- Oral swelling and IV Dye] and rash codeine [CODEINE] AdvReac Mild upset Verified 02/19/21 11:13 stomach Review of Systems Review of Systems Narrative: Pertinent positive and negative findings as per HPI Remainder of review of systems is otherwise unremarkable for Constitutional: Fevers, chills, weakness ENT: No sore throat, neck pain, ear pain CV: Chest pain, palpitations, Respiratory: Cough, wheeze, dyspnea GI: Nausea, vomiting, diarrhea, Patient History Medical History Anxiety disorder, unspecified Chronic renal failure, stage 2 (mild) Diverticular disease of colon IBS (irritable bowel syndrome) Major depressive disorder, recurrent, in partial remission Osteoporosis PTSD (post-traumatic stress disorder) QT prolongation Surgical History S/P exploratory laparotomy (~1991) S/P knee surgery (~2005) S/P tonsillectomy Status post cholecystectomy Social History household members: spouse Smoking Status: Never smoker Smoking Status: Never smoker alcohol intake frequency: 0-2 drinks per day Substance Use Type: does not use Exam Narrative Exam Narrative: General: Alert appropriate in no acute distress Respiratory: Able to speak in full sentences, no obvious respiratory distress Skin: No obvious rashes, warm and dry Neurologic: Grossly intact no obvious asymmetries or abnormalities Psych: appropriate insight and affect, cooperative Extremity: Right hand has a stellate type laceration total of 2 cm with bleeding controlled. It does appear that there is an underlying blood vessel that had been punctured that is no longer bleeding. Initial Vital Signs Initial Vital Signs: Vital Signs Temperature 97.7 F 04/07/21 23:39 Pulse Rate 75 04/07/21 23:39 Respiratory Rate 15 04/07/21 23:39 Blood Pressure 175/75 H 04/07/21 23:39 Pulse Oximetry 96 04/07/21 23:39 Procedures Laceration Repair Laceration 1: Time of procedure: 01:03 Site: hand (Dorsum) Side (If applicable): right Size (cm): 1.5 Description: stellate Depth: simple, single layer Pre-repair: wound explored, irrigated extensively and deep structures intact (With the exception of a small puncture to 1 of the superficial veins, not currently bleeding) Skin layer closed with: steri-strips (Loosely reapproximated) Course Vital Signs Vital signs: Vital Signs - 8 hr 04/07/21 23:39 Temperature 97.7 F Pulse Rate 75 Respiratory Rate 15 Blood Pressure 175/75 H Pulse Oximetry 96 MDM - Wound/Laceration MDM Narrative Medical decision making narrative: Stellate type laceration to the back her right hand. Very thin skin with minor laceration to superficial vein. Bleeding is controlled. Wound was well cleaned. Steri-Strips were loosely applied. Hemostasis was adequate. No evidence of obvious infection at this time. Because it was a CT and obvious clot that caused the laceration will have her on 5 days of doxycycline(she does have a penicillin allergy) questions are answered and she is safe for home discharge Discharge Plan Departure Patient Disposition: Home Clinical Impression: Laceration Instructions: DI for Laceration Repair Activity Restrictions/Additional Instructions: Thank you for coming in today I am sorry that your CT accidentally cut the back of your hand and the vein. I have placed Steri-Strips to help it heal but also allow any drainage should become infected. Because you are allergic to penicillin I am going to give you a prescription for doxycycline 100 mg twice a day for the next 5 days Please keep a dressing over the wound for at least the next 3-4 days. If you notice signs or symptoms of infection please feel free to return to the emergency department Prescriptions: New doxycycline hyclate 100 mg capsule 100 mg PO BID Qty: 10 RF: 0 No Action magnesium oxide 400 mg magnesium tablet 400 mg PO DAILY RF: 0 calcium carbonate 500 mg calcium (1,250 mg) tablet 1,500 mg PO DAILY RF: 0 bupropion HCl 300 mg tablet extended release 24 hr 300 mg PO QDAY Qty: 30 RF: 4 sertraline 100 mg tablet 100 mg PO DAILY Qty: 30 RF: 1 diazepam 5 mg tablet 5 mg PO DAILY PRN (Reason: anxiety) Qty: 30 RF: 0 alendronate 70 mg tablet 70 mg PO QWEEK Qty: 12 RF: 11 Referrals: Ranjeet Jack MD [Primary Care Provider] -
== END 2021-04-08 01:09 | disposition home or self-care (01) ==
PROVIDERS: Emergency Provider Emergency Medicine; Family Provider Nurse Practitioner Psychiatric/Mental Health; PCP Internal Medicine
DX: S61.411A Laceration without foreign body of right hand, initial encounter (principal); W55.03XA Scratched by cat, initial encounter
CPT/HCPCS: 99282

== ENCOUNTER 2021-04-14 09:02 | Emergency (ER) | payer MEDICARE, SELFPAY ==
[2021-04-14 09:10] VITALS: BP 130/83; PULSE 75; RESP 16; TEMP 36.2; O2SAT 99
--- NOTE | 2021-04-14 09:16 | ED_ITS ---
HPI - Skin/Abscess/Foreign Bdy General Chief complaint: Recheck/Abnormal Lab/Rx Stated complaint: Cat bite on hand not healing Time Seen by Provider: 04/14/21 09:06 History of Present Illness HPI narrative: 81-year-old female history of anxiety depression and had her cat scratched her right hand on 04/08/2021. At that time she was seen evaluated in the emergency department she had repaired with Steri-Strips his was placed on 5 days of doxycycline. Today would be her last day however she feels like it is getting more red and painful. There is actually a 2nd area of erythema just superior to that difficult to say if there is streaking. She has not had any fever chills she denies any numbness tingling or weakness. But she says it is becoming more red and more painful is worrisome to her. Related Data Home Medications Medication Instructions Recorded Confirmed calcium carbonate 500 mg calcium 1,500 mg PO DAILY tab 03/08/19 02/19/21 (1,250 mg) tablet magnesium oxide 400 mg PO DAILY 03/08/19 02/19/21 Previous Rx's Medication Instructions Recorded bupropion HCl 300 mg 24 hr tablet, 300 mg PO QDAY #30 tab 01/06/21 extended release sertraline 100 mg tablet 100 mg PO DAILY #30 tab 02/13/21 diazepam 5 mg tablet 5 mg PO DAILY PRN #30 tab 03/28/21 alendronate 70 mg tablet 70 mg PO QWEEK #12 tab 04/06/21 doxycycline hyclate 100 mg capsule 100 mg PO BID #10 cap 04/08/21 doxycycline hyclate 100 mg capsule 100 mg PO BID #6 cap 04/14/21 Allergies Allergy/AdvReac Type Severity Reaction Status Date / Time Sulfa (Sulfonamide Allergy Severe rash Verified 02/19/21 11:13 Antibiotics) [SULFA (SULFONAMIDE ANTIBIOTICS)] Penicillins [PENICILLINS] Allergy Unknown Verified 02/19/21 11:13 Iodinated Contrast Media Allergy Facial Verified 02/19/21 11:13 [Iodinated Contrast- Oral swelling and IV Dye] and rash codeine [CODEINE] AdvReac Mild upset Verified 02/19/21 11:13 stomach Review of Systems Review of Systems Narrative: GENERAL: Denies chills,fever HEENT: Denies throat pain RESPIRATORY: Denies dyspnea, cough, wheezing CARDIOVASCULAR: Denies chest pain, palpitations GASTROINTESTINAL: Denies nausea, vomiting MUSCULOSKELETAL: Denies extremity pain, injury SKIN: See HPI NEUROLOGIC: Denies weakness, dizziness, headache, numbness 8 point review of systems is negative except for those stated above and HPI Patient History Medical History Anxiety disorder, unspecified Chronic renal failure, stage 2 (mild) Diverticular disease of colon IBS (irritable bowel syndrome) Major depressive disorder, recurrent, in partial remission Osteoporosis PTSD (post-traumatic stress disorder) QT prolongation Surgical History S/P exploratory laparotomy (~1991) S/P knee surgery (~2005) S/P tonsillectomy Status post cholecystectomy Social History household members: spouse Smoking Status: Never smoker Smoking Status: Never smoker alcohol intake frequency: 0-2 drinks per day Substance Use Type: does not use Exam Initial Vital Signs Initial Vital Signs: Vital Signs Temperature 97.1 F L 04/14/21 09:10 Pulse Rate 75 04/14/21 09:10 Respiratory Rate 16 04/14/21 09:10 Blood Pressure 130/83 04/14/21 09:10 Pulse Oximetry 99 04/14/21 09:10 GENERAL: Alert well-appearing 81-year-old female CARDIOVASCULAR: peripheral pulses in tact, cap refill <2 sec RESPIRATORY: No respiratory distress, speaks in full sentences without difficulty EXTREMITIES: Normal range of motion, no clubbing or edema. Neurovascularly i ntact Bread Supervisor strength equal bilaterally able to moves fingers there is no swelling distal radial pulse intact NEUROLOGICAL: Cranial nerves II through XII grossly intact. Normal gait and speech. SKIN: Right hand dorsum healing stellate lesion around 5th MCP no drainage it is erythematous. It just superior to that area it is another erythematous area difficult to say if there is erythema streaking between the 2 areas. MDM - Skin/Abscess/Foreign Bdy MDM Narrative Medical decision making narrative: At this time patient has been on 4 days of doxycycline with possible worsening of the erythema. She has multiple allergies including to penicillin and sulfa. At this time will extend her doxycycline and continue to monitor it. She certainly is not septic. It is mildly more red with possibly a 2nd erythematous spot. I have discussed with her multiple times about continuing on current antibiotic rather than changing at this time however if it is worsening may need to consider alternative. I also encouraged her to use antibiotic ointment. She did not have a cat bite she had a cat scratch. Discharge Plan Departure Patient Disposition: Home Clinical Impression: Cellulitis of hand, right Instructions: DI for Cellulitis -- Adult Activity Restrictions/Additional Instructions: *You have been diagnosed with cellulitis right hand *What to do: At this time with worsening symptoms does seem a bit reasonable to switch antibiotics. *Continue to take medications as directed Continue doxycycline 100 mg twice a day for a longer course--> SENT TO [facility] *Follow up with your primary care provider in 2-3 days *Return to ER if you should have increasing redness, fever, swelling, pain, drainage or any new, worsening or concerning symptoms Prescriptions: New doxycycline hyclate 100 mg capsule 100 mg PO BID Qty: 6 RF: 0 No Action magnesium oxide 400 mg magnesium tablet 400 mg PO DAILY RF: 0 calcium carbonate 500 mg calcium (1,250 mg) tablet 1,500 mg PO DAILY RF: 0 bupropion HCl 300 mg tablet extended release 24 hr 300 mg PO QDAY Qty: 30 RF: 4 sertraline 100 mg tablet 100 mg PO DAILY Qty: 30 RF: 1 diazepam 5 mg tablet 5 mg PO DAILY PRN (Reason: anxiety) Qty: 30 RF: 0 alendronate 70 mg tablet 70 mg PO QWEEK Qty: 12 RF: 11 doxycycline hyclate 100 mg capsule 100 mg PO BID Qty: 10 RF: 0 Referrals: Ranjeet Jack MD [Primary Care Provider] -
== END 2021-04-14 09:54 | disposition home or self-care (01) ==
PROVIDERS: Emergency Provider Emergency Medicine; Family Provider Nurse Practitioner Psychiatric/Mental Health; PCP Internal Medicine
DX: L03.113 Cellulitis of right upper limb (principal)
CPT/HCPCS: 99281

== ENCOUNTER 2021-09-11 22:17 | Emergency (ER) | payer MEDICARE, SELFPAY ==
[2021-09-11 22:21] VITALS: PULSE 75; RESP 14; TEMP 36.9; O2SAT 95; BMI 22.4
--- NOTE | 2021-09-11 23:34 | ED.EYEPROB ---
HPI - Eye Problem General Chief complaint: Eye Problems Stated complaint: POWER SERUM WRINKLE REPAIR IN RIGHT EYE Time Seen by Provider: 09/11/21 22:53 Source: patient Mode of arrival: Ambulatory History of Present Illness HPI Narrative: 81-year-old female nonsmoker with noncontributory medical history presents with her in the chief complaint of irritation to her right lateral eye. She denies any specific injury or change in her vision. She denies any trauma. She states that she had been using some wrinkle cream on her face and questions whether she may have gotten some in her eye or not. She called her wood and wood products factory worker and was encouraged to put some [id number] saline drops in her eye and presents to the emergency department if this does not fix her problems. She presents stating she feels some irritation to her lateral eye. She does not wear contact Related Data Home Medications Medication Instructions Recorded Confirmed calcium carbonate 500 mg calcium 1,500 mg PO DAILY tab 03/08/19 07/27/21 (1,250 mg) tablet magnesium oxide 400 mg PO DAILY 03/08/19 07/27/21 Previous Rx's Medication Instructions Recorded alendronate 70 mg tablet 70 mg PO QWEEK #12 tab 04/06/21 bupropion HCl 300 mg 24 hr tablet, 300 mg PO QDAY #30 tab 06/02/21 extended release diazepam 5 mg tablet 5 mg PO DAILY PRN #30 tab 06/02/21 sertraline 100 mg tablet 200 mg PO DAILY #60 tab 08/27/21 Allergies Allergy/AdvReac Type Severity Reaction Status Date / Time Sulfa (Sulfonamide Allergy Severe rash Verified 07/27/21 13:01 Antibiotics) [SULFA (SULFONAMIDE ANTIBIOTICS)] Penicillins [PENICILLINS] Allergy Unknown Verified 07/27/21 13:01 Iodinated Contrast Media Allergy Facial Verified 07/27/21 13:01 [Iodinated Contrast- Oral swelling and IV Dye] and rash codeine [CODEINE] AdvReac Mild upset Verified 07/27/21 13:01 stomach Review of Systems Review of Systems Narrative: GENERAL: Denies chills, fatigue, malaise, fever, sweats. HEENT: See HPI RESPIRATORY: Denies dyspnea, cough, wheezing, hemoptysis, sputum. CARDIOVASCULAR: Denies chest pain, palpitations, orthopnea, edema, GASTROINTESTINAL: Denies nausea, vomiting, abdominal pain, diarrhea, constipation, melena. : Denies dysuria, frequency, incontinence, hematuria, urinary retention. MUSCULOSKELETAL: denies weakness, joint pain, or bony pain SKIN: Denies rash, skin lesions, or other NEUROLOGIC: Denies weakness, headache, numbness, change in speech, confusion, seizures, incoordination. PSYCHIATRIC: No concerning psychosocial issues. 12 point review of systems is negative except for those stated above Patient History Medical History Anxiety disorder, unspecified Chronic renal failure, stage 2 (mild) Diverticular disease of colon IBS (irritable bowel syndrome) Major depressive disorder, recurrent, in partial remission Osteoporosis PTSD (post-traumatic stress disorder) QT prolongation Surgical History S/P exploratory laparotomy (~1991) S/P knee surgery (~2005) S/P tonsillectomy Status post cholecystectomy Social History household members: spouse Smoking Status: Never smoker Smoking Status: Never smoker alcohol intake frequency: 0-2 drinks per day Substance Use Type: does not use Exam Narrative Exam Narrative: GEN: AOx3 and in mild distress EYES: Pupils are equal, round, and reactive to light and accommodation. Extraoccular muscles are intact bilaterally. Right eye with subconjunctival hemorrhage over lateral sclera at 9:00 a.m. position. No hyphema. When viewed under Wood's lamp foreign body noted in the form of a long piece of hair or string, perhaps from her mask. This was easily removed. Upper lid is everted no retained foreign body noted. Fluorescein used and no dye uptake noted. CHEST: Lungs are clear to auscultation bilaterally and free of wheezes, rales, or rhonchi. Heart rate is regular rhythm, there are no murmurs, clicks, rubs, or gallops. There is no chest wall tenderness. ABD: Abdomen is soft and nontender. There is no guarding or rebound. Bowel sounds are normal in all 4 quadrants. There is no mass or organomegaly. EXT: Full painless ROM of all extremities with no loss of sensation or strength. SKIN: Warm, pink, and dry. No erythema or rash Initial Vital Signs Initial Vital Signs: Vital Signs Temperature 98.5 F 09/11/21 22:21 Pulse Rate 75 09/11/21 22:21 Respiratory Rate 14 09/11/21 22:21 Pulse Oximetry 95 09/11/21 22:21 Course Orders Ordered: Discontinued Medications Fluorescein Sodium (Fluorescein 1 Mg Strip) 1 mg EYE-RIGHT NOW ONE Stop: 09/12/21 01:57 Ofloxacin (Ofloxacin 0.3% Ophth 5 Ml) 1 drops EYE-RIGHT NOW ONE Stop: 09/12/21 02:12 Last Admin: 09/12/21 02:28 Dose: 1 box Documented by: PHILOMENA Proparacaine HCl (Proparacaine 0.5% Ophth Elis) 1 drops EYE-RIGHT NOW ONE Stop: 09/12/21 00:26 Last Admin: 09/12/21 00:28 Dose: 1 drop Documented by: JONATHAN Vital Signs Vital signs: Vital Signs - 8 hr 09/11/21 22:21 09/12/21 02:59 Temperature 98.5 F Pulse Rate 75 71 Respiratory Rate 14 16 Pulse Oximetry 95 98 Discharge Plan Departure Patient Disposition: Home Clinical Impression: Subconjunctival hemorrhage, Foreign body in external eye Activity Restrictions/Additional Instructions: *You have been diagnosed with [right eye foreign body and subconjunctival hemorrhage *What to do: *Please continue to take your regular medications as directed. [ ] New medication given to you tonight. Please put 1-2 drops of the Ofloxacin in your right eye every 6 hours for 1 week. *Please follow up with your eye doctor in 2-3 days, call for an appointment. Let them know you were seen in the Emergency Department and that we ask that you be seen in follow up. *Return to Emergency Department if you should have any new, worsening or concerning symptoms, such as [fever greater than 101 F, shaking chills, worsening pain, persistent vomiting or other bothersome symptoms] Prescriptions: No Action diazepam 5 mg tablet 5 mg PO DAILY PRN (Reason: anxiety) Qty: 30 1RF bupropion HCl 300 mg tablet extended release 24 hr 300 mg PO QDAY Qty: 30 2RF magnesium oxide 400 mg magnesium tablet 400 mg PO DAILY 0RF calcium carbonate 500 mg calcium (1,250 mg) tablet 1,500 mg PO DAILY 0RF alendronate 70 mg tablet 70 mg PO QWEEK Qty: 12 11RF sertraline 100 mg tablet 200 mg PO DAILY Qty: 60 2RF Rx Instructions: Always take with food. Referrals: Ranjeet Jack MD [Primary Care Provider] -
[2021-09-12] MEDS: PROPARACAINE 0.5% OPHTH SOL 1 DROPS EYE-RIGHT (00:28)
[2021-09-12] MEDS: OFLOXACIN 0.3% OPHTH 5 ML 1 DROPS EYE-RIGHT (02:28)
[2021-09-12 02:59] VITALS: PULSE 71; RESP 16; O2SAT 98
== END 2021-09-12 03:00 | disposition home or self-care (01) ==
PROVIDERS: Emergency Provider Emergency Medicine; Family Provider Nurse Practitioner Psychiatric/Mental Health; PCP Internal Medicine
DX: H11.31 Conjunctival hemorrhage, right eye (principal); T15.81XA Foreign body in other and multiple parts of external eye, right eye, initial encounter; X58.XXXA Exposure to other specified factors, initial encounter
CPT/HCPCS: 65220; 99282

== ENCOUNTER → 2022-02-01 10:54 | Outpatient (CLI) | payer MEDICARE, SELFPAY ==
[2022-02-01 13:02] LABS: Add Manual Diff / Slide Review NO; Basophils Absolute Auto 0 /uL (0-100); Basophils Percent Auto 0.2 % (0-2); Eosinophils Absolute Auto 0 /uL (0-450); Eosinophils Percent Auto 0.9 % (2-4); Hematocrit 38.4 % (36-46); Hemoglobin 13.4 g/dL (12.0-16.0); Lymphocytes Absolute Auto 1000 /uL (1100-4500); Lymphocytes Percent Auto 21.4 % (25-40); Mean Corpuscular HGB Conc 34.9 % (30-36); Mean Corpuscular Hemoglobin 30.5 PG (26-34); Mean Corpuscular Volume 87.3 fL (80-100); Monocytes Absolute Auto 400 /uL (0-900); Monocytes Percent Auto 7.8 % (3-14); Neutrophils Absolute Auto 3200 /uL (1500-7000); Neutrophils Percent Auto 69.7 % (50-75); Platelet Count 237 X10^3/uL (150-400); Red Cell Distribution Width 12.8 % (11.6-14.8); White Blood Cell Count 4.6 X10^3/uL (4.5-11.0)
[2022-02-01 13:27] LABS: Alanine Aminotransferase 14 IU/L (<35); Albumin 4.2 g/dL (3.5-5.0); Albumin Globulin Ratio 1.4 (1.0-2.8); Alkaline Phosphatase 64 U/L (38-126); Aspartate Aminotransferase 26 IU/L (14-36); BUN Creatinine Ratio 23.9 (6-22); Bilirubin Total 0.5 mg/dL (0.2-1.3); Blood Urea Nitrogen 26 mg/dL (7-17); Calcium 8.9 mg/dL (8.4-10.2); Carbon Dioxide 24 mmol/L (22-32); Chloride 108 mmol/L (98-107); Estimated Glomerular Filt Rate 51 mL/min (>60); Globulin 2.9 g/dL (1.7-4.1); Glucose 80 mg/dL (80-110); HEMOLYSIS < 15 (0-50); Potassium 3.8 mmol/L (3.4-5.1); Sodium 140 mmol/L (137-145); Total Protein 7.1 g/dL (6.3-8.2)
[2022-02-01 13:30] LABS: High Sensitivity CRP - Cardiac 1.4 mg/L (1.0-3.0)
[2022-02-01 13:31] LABS: Erythrocyte Sedimentation Rate 14 MM/HR (0-20)
[2022-02-01 14:06] LABS: TSH w/ Reflex to FT4 2.19 uIU/mL (0.47-4.68)
[2022-02-01 16:46] LABS: HIV 1 & 2 Ab/Ag 4th Gen Combo NEGATIVE (NEGATIVE)
[2022-02-03 07:10] LABS: RPR Screen Non Reactive (Non Reactive)
[2022-02-05 18:46] LABS: ANA Screen, IFA Positive (.)
== END ==
PROVIDERS: Family Provider Nurse Practitioner Psychiatric/Mental Health; PCP Internal Medicine; Referring Provider Psychiatry & Neurology Behavioral Neurology & Neuropsychiatry; Visit Provider Psychiatry & Neurology Behavioral Neurology & Neuropsychiatry
DX: R41.3 Other amnesia (principal); F41.9 Anxiety disorder, unspecified; F43.10 Post-traumatic stress disorder, unspecified
CPT/HCPCS: 36415; 80053; 84443; 85025; 85651; 86038; 86140; 86592; 87389; 90837

== ENCOUNTER 2023-01-24 13:52 | Emergency (ER) | payer MEDICARE, SELFPAY ==
[2023-01-24] VITALS (7 sets, daily range): BP systolic 137–182; BP diastolic 74–88; PULSE 64–80; RESP 16–18; TEMP 36.4; O2SAT 95–97; BMI 23.3
--- NOTE | 2023-01-24 18:10 | ED.PSYCH ---
HPI - Psych General Chief Complaint: Psychiatric Symptoms Stated Complaint: Anxiety, memory loss Time Seen by Provider: 01/24/23 18:10 Source: patient and family Mode of arrival: Ambulatory History of Present Illness HPI Narrative: 83-year-old female nonsmoker with history of Alzheimer's dementia, generalized anxiety disorder, chronic renal failure, depression and PTSD presents with her for evaluation of increasing frequency and severity of anxious episodes certainly over the past 2 weeks or so. She is had no trauma or injury. No fever or chills. Denies chest pain or shortness of breath. She is had no nausea, vomiting or diarrhea. She is had no change in diet or appetite. She is under the care of Dr. Allen with psychiatry and Dr. Galan is her PCP. She denies missing doses in meds. She was most recently seen by Dr. Allen on 01/18 and was advised to continue aripiprazole, continue diazepam, increase donepezil to 10 mg daily and start duloxetine 30 mg. She denies suicidal or homicidal ideation. She is sleeping okay and confirms she is eating, drinking and taking care of herself without significant difficulty Related Data Home Medications Medication Instructions Recorded Confirmed calcium carbonate 500 mg calcium 1,500 mg PO DAILY 03/08/19 01/14/23 (1,250 mg) tablet Previous Rx's Medication Instructions Recorded bupropion HCl 300 mg 24 hr tablet, 300 mg PO QDAY #30 tabs 05/31/22 extended release alendronate 70 mg tablet 70 mg PO QWEEK #12 tabs 12/05/22 diazepam 5 mg tablet 10 mg PO DAILY PRN anxiety #60 tabs 12/05/22 tretinoin 0.1 % topical cream 1 applic topical BEDTIME #45 grams 12/20/22 aripiprazole 5 mg tablet 5 mg PO DAILY #30 tabs 01/14/23 donepezil 10 mg tablet 10 mg PO BEDTIME #30 tabs 01/20/23 duloxetine 30 mg capsule,delayed See Rx Instructions PO DAILY #60 01/20/23 release caps cephalexin 500 mg capsule 500 mg PO Q6H 7 days #28 caps 01/24/23 Allergies Allergy/AdvReac Type Severity Reaction Status Date / Time Sulfa (Sulfonamide Allergy Severe rash Verified 01/24/23 15:01 Antibiotics) [SULFA (SULFONAMIDE ANTIBIOTICS)] Penicillins [PENICILLINS] Allergy Unknown Verified 01/24/23 15:01 Iodinated Contrast Media Allergy Facial Verified 01/24/23 15:01 [Iodinated Contrast- Oral swelling and IV Dye] and rash codeine [CODEINE] AdvReac Mild upset Verified 01/24/23 15:01 stomach Review of Systems Review of Systems Narrative: GENERAL: Denies chills, fatigue, malaise, fever, sweats. HEENT: Denies sinus pain, ear pain, sore throat, difficulty swallowing, dizziness. RESPIRATORY: Denies dyspnea, cough, wheezing, hemoptysis, sputum. CARDIOVASCULAR: Denies chest pain, palpitations, orthopnea, edema, GASTROINTESTINAL: Denies nausea, vomiting, abdominal pain, diarrhea, constipation, melena. : Denies dysuria, frequency, incontinence, hematuria, urinary retention. MUSCULOSKELETAL: denies weakness, joint pain, or bony pain SKIN: Denies rash, skin lesions, or other NEUROLOGIC: Denies weakness, headache, numbness, change in speech, confusion, seizures, incoordination. PSYCHIATRIC: See HPI. 12 point review of systems is negative except for those stated above Patient History Medical History Alzheimer's dementia Chronic renal failure, stage 2 (mild) Diarrhea Diverticular disease of colon Generalized anxiety disorder IBS (irritable bowel syndrome) Osteoporosis PTSD (post-traumatic stress disorder) QT prolongation Surgical History S/P exploratory laparotomy (~1991) S/P knee surgery (~2005) S/P tonsillectomy Status post cholecystectomy Social History household members: spouse Smoking Status: Never smoker Smoking Status: Never smoker alcohol intake frequency: 0-2 drinks per day Substance Use Type: does not use Exam Narrative Exam Narrative: GENERAL: [83] year old patient appears stated age. Well-developed patient, in mild distress. GCS 14 (pleasantly confused) HEAD: Atraumatic. Normocephalic. EYES: Pupils equal round and reactive. Extraocular motions intact. No scleral icterus. No injection or drainage. ENT: Nose without bleeding, purulent drainage. Throat without erythema, tonsillar hypertrophy or exudate. Airway patent. NECK: Trachea midline. Non tender CARDIOVASCULAR: Regular rate and rhythm without murmurs, gallops, or rubs. RESPIRATORY: Clear to auscultation. Breath sounds equal bilaterally. No wheezes, rales, or rhonchi. GASTROINTESTINAL: Abdomen soft, non-tender, nondistended. EXTREMITIES: No edema or joint tenderness. BACK: Nontender without deformity or crepitance. No flank tenderness. NEURO: AOx3. SKIN: No rash or erythema of visible areas Initial Vital Signs Initial Vital Signs: Vital Signs Temperature 97.5 F L 01/24/23 14:55 Pulse Rate 80 01/24/23 14:55 Respiratory Rate 16 01/24/23 14:55 Blood Pressure 137/77 01/24/23 14:55 Pulse Oximetry 95 01/24/23 14:55 Oxygen Delivery Method Room Air 01/24/23 14:55 Course Orders Ordered: ED Orders 01/24/23 18:36 Urinalysis and Microscopic Stat Urine Culture Stat Urine Drug Screen, Rapid Stat 01/24/23 19:00 Acetaminophen Stat Ammonia (NH3) Stat Complete Blood Count AUTO DIFF Stat Comprehensive Metabolic Panel Stat Ethanol (ETOH) Stat MAG [Magnesium] Stat Salicylate Stat Thyroid Stimulating Hormone Stat Discontinued Medications Cefazolin Sodium (Cephalexin 250 Mg Cap Prepack) 1 bottle MISC SEEINSTR ONE Stop: 01/24/23 20:07 Last Admin: 01/24/23 20:10 Dose: 1 bottle Documented By: ANUPAM Vital Signs Vital signs: Vital Signs - 8 hr 01/24/23 19:17 01/24/23 19:30 01/24/23 20:00 Pulse Rate 65 64 64 Blood Pressure Pulse Oximetry 97 97 97 Oxygen Delivery Method 01/24/23 20:12 01/24/23 20:13 01/24/23 20:13 Pulse Rate 65 65 Blood Pressure 163/74 H Pulse Oximetry 97 97 Oxygen Delivery Method Room Air MDM - Psych Lab Data 01/24/23 19:00 01/24/23 19:00 Labs: Lab Results 01/24/23 01/24/23 01/24/23 Range/Units 18:36 18:36 19:00 WBC (4.5-11.0) X10^3/uL RBC (4.0-5.2) X10^6/uL Hgb (12.0-16.0) g/dL Hct (36-46) % MCV (80-100) fL MCH (26-34) PG MCHC (30-36) % RDW (11.6-14.8) % Plt Count (150-400) X10^3/uL Neut % (Auto) (50-75) % Lymph % (Auto) (25-40) % [place] % (Auto) (3-14) % Eos % (Auto) (2-4) % Baso % (Auto) (0-2) % Neut # (Auto) (5161-8633) /uL Lymph # (Auto) (1080-7785) /uL [place] # (Auto) (0-900) /uL Eos # (Auto) (0-450) /uL Baso # (Auto) (0-100) /uL Sodium (137-145) mmol/L Potassium (3.4-5.1) mmol/L Chloride (98-107) mmol/L Carbon Dioxide (22-32) mmol/L BUN (7-17) mg/dL Creatinine (0.52-1.04) mg/dL Estimated GFR (>60) mL/min BUN/Creatinine Ratio (6-22) Glucose (80-110) mg/dL Calcium (8.4-10.2) mg/dL Magnesium 1.9 (1.6-2.3) mg/dL Total Bilirubin (0.2-1.3) mg/dL AST (14-36) IU/L ALT (<35) IU/L Alkaline Phosphatase (38-126) U/L Ammonia (9-30) umol/L Total Protein (6.3-8.2) g/dL Albumin (3.5-5.0) g/dL Globulin (1.7-4.1) g/dL Albumin/Globulin Ratio (1.0-2.8) TSH (0.47-4.68) uIU/mL Urine Color Yellow Urine Appearance Clear Urine pH 5.0 (4.5-8.0) Ur Specific Spearman >=1.030 H (1.000-1.035) Urine Protein Negative (Negative) Urine Glucose (UA) Negative (Negative) g/dL Urine Ketones Negative (NEGATIVE) Urine Occult Blood 2+ H (Negative) Urine Nitrate Positive H (Negative) Urine Bilirubin Negative (NEGATIVE) Urine Urobilinogen 0.2 (0.2) E.U./dL Ur Leukocyte Esterase 1+ H (NEGATIVE) Urine RBC 5-10/hpf H (0-5/HPF) Urine WBC 30-100/hpf H (0-5/HPF) Ur Squamous Epith Cells 1-5 /hpf (0-5/HPF) Urine Bacteria Many (>30) H (None) Ur Culture Indicated? Specimen cultured Salicylates (<20) mg/dL U Opiates 300ng/mL cut Negative (Negative) Ur Oxycodone Screen Negative (Negative) Urine Methadone Screen Negative (Negative) Acetaminophen (10-30) ug/mL Ur Barbiturates Screen Negative (Negative) U Tricyclic Antidepress Negative (Negative) Ur Phencyclidine Scrn Negative (Negative) Ur Amphetamines Screen Negative (Negative) U Methamphetamines Scrn Negative (Negative) Ur MDMA Scrn (Ecstasy) Negative (Negative) U Benzodiazepines Scrn Positive H (Negative) Urine Cocaine Screen Negative (Negative) U Marijuana (THC) Screen Negative (Negative) Ethyl Alcohol ( - 10) mg/dL 01/24/23 01/24/23 01/24/23 Range/Units 19:00 19:00 19:00 WBC 5.6 (4.5-11.0) X10^3/uL RBC 5.04 (4.0-5.2) X10^6/uL Hgb 15.1 (12.0-16.0) g/dL Hct 43.5 (36-46) % MCV 86.2 (80-100) fL MCH 30.0 (26-34) PG MCHC 34.8 (30-36) % RDW 13.7 (11.6-14.8) % Plt Count 265 (150-400) X10^3/uL Neut % (Auto) 71.7 (50-75) % Lymph % (Auto) 21.8 L (25-40) % [place] % (Auto) 5.6 (3-14) % Eos % (Auto) 0.4 L (2-4) % Baso % (Auto) 0.5 (0-2) % Neut # (Auto) 4000 (7468-7072) /uL Lymph # (Auto) 1200 (4720-3699) /uL [place] # (Auto) 300 (0-900) /uL Eos # (Auto) 0 (0-450) /uL Baso # (Auto) 0 (0-100) /uL Sodium 140 (137-145) mmol/L Potassium 3.9 (3.4-5.1) mmol/L Chloride 106 (98-107) mmol/L Carbon Dioxide 23 (22-32) mmol/L BUN 16 (7-17) mg/dL Creatinine 0.97 (0.52-1.04) mg/dL Estimated GFR 58 L (>60) mL/min BUN/Creatinine Ratio 16.5 (6-22) Glucose 104 (80-110) mg/dL Calcium 9.4 (8.4-10.2) mg/dL Magnesium (1.6-2.3) mg/dL Total Bilirubin 0.8 (0.2-1.3) mg/dL AST 30 (14-36) IU/L ALT 27 (<35) IU/L Alkaline Phosphatase 80 (38-126) U/L Ammonia < 9 L (9-30) umol/L Total Protein 7.7 (6.3-8.2) g/dL Albumin 4.7 (3.5-5.0) g/dL Globulin 3.0 (1.7-4.1) g/dL Albumin/Globulin Ratio 1.6 (1.0-2.8) TSH (0.47-4.68) uIU/mL Urine Color Urine Appearance Urine pH (4.5-8.0) Ur Specific Spearman (1.000-1.035) Urine Protein (Negative) Urine Glucose (UA) (Negative) g/dL Urine Ketones (NEGATIVE) Urine Occult Blood (Negative) Urine Nitrate (Negative) Urine Bilirubin (NEGATIVE) Urine Urobilinogen (0.2) E.U./dL Ur Leukocyte Esterase (NEGATIVE) Urine RBC (0-5/HPF) Urine WBC (0-5/HPF) Ur Squamous Epith Cells (0-5/HPF) Urine Bacteria (None) Ur Culture Indicated? Salicylates < 1.0 (<20) mg/dL U Opiates 300ng/mL cut (Negative) Ur Oxycodone Screen (Negative) Urine Methadone Screen (Negative) Acetaminophen < 10 (10-30) ug/mL Ur Barbiturates Screen (Negative) U Tricyclic Antidepress (Negative) Ur Phencyclidine Scrn (Negative) Ur Amphetamines Screen (Negative) U Methamphetamines Scrn (Negative) Ur MDMA Scrn (Ecstasy) (Negative) U Benzodiazepines Scrn (Negative) Urine Cocaine Screen (Negative) U Marijuana (THC) Screen (Negative) Ethyl Alcohol < 10 ( - 10) mg/dL 01/24/23 Range/Units 19:00 WBC (4.5-11.0) X10^3/uL RBC (4.0-5.2) X10^6/uL Hgb (12.0-16.0) g/dL Hct (36-46) % MCV (80-100) fL MCH (26-34) PG MCHC (30-36) % RDW (11.6-14.8) % Plt Count (150-400) X10^3/uL Neut % (Auto) (50-75) % Lymph % (Auto) (25-40) % [place] % (Auto) (3-14) % Eos % (Auto) (2-4) % Baso % (Auto) (0-2) % Neut # (Auto) (6823-9449) /uL Lymph # (Auto) (8353-3654) /uL [place] # (Auto) (0-900) /uL Eos # (Auto) (0-450) /uL Baso # (Auto) (0-100) /uL Sodium (137-145) mmol/L Potassium (3.4-5.1) mmol/L Chloride (98-107) mmol/L Carbon Dioxide (22-32) mmol/L BUN (7-17) mg/dL Creatinine (0.52-1.04) mg/dL Estimated GFR (>60) mL/min BUN/Creatinine Ratio (6-22) Glucose (80-110) mg/dL Calcium (8.4-10.2) mg/dL Magnesium (1.6-2.3) mg/dL Total Bilirubin (0.2-1.3) mg/dL AST (14-36) IU/L ALT (<35) IU/L Alkaline Phosphatase (38-126) U/L Ammonia (9-30) umol/L Total Protein (6.3-8.2) g/dL Albumin (3.5-5.0) g/dL Globulin (1.7-4.1) g/dL Albumin/Globulin Ratio (1.0-2.8) TSH 3.11 (0.47-4.68) uIU/mL Urine Color Urine Appearance Urine pH (4.5-8.0) Ur Specific Spearman (1.000-1.035) Urine Protein (Negative) Urine Glucose (UA) (Negative) g/dL Urine Ketones (NEGATIVE) Urine Occult Blood (Negative) Urine Nitrate (Negative) Urine Bilirubin (NEGATIVE) Urine Urobilinogen (0.2) E.U./dL Ur Leukocyte Esterase (NEGATIVE) Urine RBC (0-5/HPF) Urine WBC (0-5/HPF) Ur Squamous Epith Cells (0-5/HPF) Urine Bacteria (None) Ur Culture Indicated? Salicylates (<20) mg/dL U Opiates 300ng/mL cut (Negative) Ur Oxycodone Screen (Negative) Urine Methadone Screen (Negative) Acetaminophen (10-30) ug/mL Ur Barbiturates Screen (Negative) U Tricyclic Antidepress (Negative) Ur Phencyclidine Scrn (Negative) Ur Amphetamines Screen (Negative) U Methamphetamines Scrn (Negative) Ur MDMA Scrn (Ecstasy) (Negative) U Benzodiazepines Scrn (Negative) Urine Cocaine Screen (Negative) U Marijuana (THC) Screen (Negative) Ethyl Alcohol ( - 10) mg/dL MDM Narrative Medical decision making narrative: CC: 83-year-old female with increasing frequency and severity of anxiety Complicating co-morbidities: Data collected from: Patient Medical records reviewed: Prior notes reviewed in our EMR Differential considered, but not limited to: Anxiety versus increasing dementia versus metabolic or toxic encephalopathy Exam documented above, pertinent findings include: Alert and oriented x3, pleasantly confused, heart rate regular, lungs clear, abdomen soft, cranial nerves 2-12 grossly intact Lab Test results independently reviewed as above. Pertinent findings: No leukocytosis or left shift, no anemia, electrolytes and renal function within normal, urine highly suggestive of infectious process Discussion: Patient with gradually worsening increased episodes induration of anxiety and confusion, most likely a consequence of advancing dementia, however alternate diagnoses were considered. No signs of sepsis or stroke, no focal neurologic findings, no electrolyte abnormalities. She does have evidence of UTI which will be addressed tonight. Return precautions discussed Disposition: see below, along with detailed discharge instructions that have been reviewed with patient as well as indications for ED re-evaluation and additional outpatient follow up Discharge Plan Departure Patient Disposition: Home Clinical Impression: Acute UTI, Anxiety Instructions: DI for Urinary Tract Infection (UTI) Activity Restrictions/Additional Instructions: *You have been diagnosed with [UTI and anxiety] *What to do: *Please continue to take your regular medications as directed. [x ] New medication prescriptions sent to your pharmacy: [ [facility]] [ ] New medication written as a paper prescription [ ] No new medications given *Please follow up with your primary care provider in 2-3 days, call for an appointment. Let them know you were seen in the Emergency Department and that we ask that you be seen in follow up. We will electronically transmit a record of today's note if your PCP is in our system *If you do not have a primary care provider please contact the [facility] Resource line at [phone]. They will ask some questions about your medical history and help get you set up with a doctor in the community. *Return to Emergency Department if you should have any new, worsening or concerning symptoms, such as [fever greater than 101 F, shaking chills, worsening pain, persistent vomiting or other bothersome symptoms] Prescriptions: New cephalexin 500 mg capsule 500 mg PO Q6H 7 Days Qty: 28 0RF No Action calcium carbonate 500 mg calcium (1,250 mg) tablet 1,500 mg PO DAILY diazepam 5 mg tablet 10 mg PO DAILY PRN (Reason: anxiety) Qty: 60 5RF alendronate 70 mg tablet 70 mg PO QWEEK Qty: 12 4RF tretinoin 0.1 % cream 1 applic topical BEDTIME Qty: 45 3RF duloxetine 30 mg capsule,delayed release(DR/EC) See Rx Instructions PO DAILY Qty: 60 0RF Rx Instructions: Take 30mg daily for 1 week, then increase dose to 30mg TWICE daily donepezil 10 mg tablet 10 mg PO BEDTIME Qty: 30 2RF Rx Instructions: Dose increase. bupropion HCl 300 mg tablet extended release 24 hr 300 mg PO QDAY Qty: 30 2RF aripiprazole 5 mg tablet 5 mg PO DAILY Qty: 30 5RF Referrals: Nigel Galan MD [Primary Care Provider] - Stand Alone Forms: Patient Portal/API
[2023-01-24 18:58] LABS: Appearance Urine UA CLEAR; Bilirubin Urine UA NEGATIVE (NEGATIVE); Color Urine UA YELLOW; Glucose Urine UA NEGATIVE (Negative); Ketones Urine UA NEGATIVE (NEGATIVE); Leukocyte Esterase Urine UA 1+ (NEGATIVE); Nitrite Urine UA POSITIVE (Negative); Occult Blood Urine UA 2+ (Negative); Protein Urine UA NEGATIVE (Negative); Specific Gravity Urine UA >=1.030 (1.000-1.035); Urobilinogen Urine UA 0.2 E.U./dL (0.2)
[2023-01-24 19:04] LABS: Ur Creatinine Normal (Normal); Ur Specific Gravity Normal (Normal); Urine Benzodiazepines Positive (Negative); Urine pH Normal (Normal)
[2023-01-24 19:05] LABS: UR Morphine/Opiate cutoff 300 Negative (Negative); Urine Amphetamines Negative (Negative); Urine Barbiturates Negative (Negative); Urine Cocaine Negative (Negative); Urine MDMA Negative (Negative); Urine Methadone Negative (Negative); Urine Methamphetamines Negative (Negative); Urine Oxycodone Negative (Negative); Urine Phencyclidine Negative (Negative); Urine Tetrahydrocannabinol Negative (Negative); Urine Tricyclic Antidepressant Negative (Negative)
[2023-01-24 19:08] LABS: Bacteria Urine Many (>30); RBC Urine 5-10/HPF (0-5/HPF); Squamous Epithelial Cell Urine 1-5 /HPF (0-5/HPF); WBC Urine 30-100/HPF (0-5/HPF)
[2023-01-24 19:09] LABS: Culture Indicated Urine Specimen Cultured
[2023-01-24 19:13] LABS: Add Manual Diff / Slide Review NO; Basophils Absolute Auto 0 /uL (0-100); Basophils Percent Auto 0.5 % (0-2); Eosinophils Absolute Auto 0 /uL (0-450); Eosinophils Percent Auto 0.4 % (2-4); Hematocrit 43.5 % (36-46); Hemoglobin 15.1 g/dL (12.0-16.0); Lymphocytes Absolute Auto 1200 /uL (1100-4500); Lymphocytes Percent Auto 21.8 % (25-40); Mean Corpuscular HGB Conc 34.8 % (30-36); Mean Corpuscular Volume 86.2 fL (80-100); Monocytes Absolute Auto 300 /uL (0-900); Monocytes Percent Auto 5.6 % (3-14); Neutrophils Absolute Auto 4000 /uL (1500-7000); Neutrophils Percent Auto 71.7 % (50-75); Platelet Count 265 X10^3/uL (150-400); Red Blood Cell Count 5.04 X10^6/uL (4.0-5.2); Red Cell Distribution Width 13.7 % (11.6-14.8); White Blood Cell Count 5.6 X10^3/uL (4.5-11.0)
[2023-01-24 19:24] LABS: Ammonia (NH3) < 9 umol/L (9-30)
[2023-01-24 19:25] LABS: Acetaminophen < 10 ug/mL (10-30); Alanine Aminotransferase 27 IU/L (<35); Albumin 4.7 g/dL (3.5-5.0); Albumin Globulin Ratio 1.6 (1.0-2.8); Alkaline Phosphatase 80 U/L (38-126); Aspartate Aminotransferase 30 IU/L (14-36); BUN Creatinine Ratio 16.5 (6-22); Bilirubin Total 0.8 mg/dL (0.2-1.3); Blood Urea Nitrogen 16 mg/dL (7-17); Calcium 9.4 mg/dL (8.4-10.2); Carbon Dioxide 23 mmol/L (22-32); Chloride 106 mmol/L (98-107); Estimated Glomerular Filt Rate 58 mL/min (>60); Ethanol (ETOH) < 10 mg/dL; Glucose 104 mg/dL (80-110); HEMOLYSIS < 15 (0-50); Magnesium 1.9 mg/dL (1.6-2.3); Potassium 3.9 mmol/L (3.4-5.1); Salicylate < 1.0 mg/dL (<20); Sodium 140 mmol/L (137-145); Total Protein 7.7 g/dL (6.3-8.2)
[2023-01-24] MEDS: cephALEXin 250 MG CAP PREPACK 1 BOTTLE MISC (20:10)
[2023-01-24 20:32] LABS: Thyroid Stimulating Hormone 3.11 uIU/mL (0.47-4.68)
== END 2023-01-24 20:16 | disposition home or self-care (01) ==
PROVIDERS: Emergency Provider Emergency Medicine; PCP Internal Medicine
DX: F41.9 Anxiety disorder, unspecified (principal); N39.0 Urinary tract infection, site not specified
CPT/HCPCS: 80053; 80305; 80320; 80329; 81001; 82140; 83735; 84443; 85025; 87077; 87086; 87186; 99283; 99284; G0480

== ENCOUNTER 2023-01-31 21:01 | Emergency (ER) | payer MEDICARE, SELFPAY ==
[2023-01-31] VITALS (9 sets, daily range): BP systolic 156–213; BP diastolic 70–105; PULSE 40–80; RESP 10–29; O2SAT 91–100; BMI 24.0
[2023-01-31] MEDS: SODIUM CHLORIDE 0.9% 1,000 ML 1000 ML IV (21:30)
[2023-01-31] MEDS: ACTIVATED CHARCOAL 50 GM/240 ML PO (21:30)
[2023-01-31 21:34] LABS: Add Manual Diff / Slide Review NO; Basophils Absolute Auto 0 /uL (0-100); Basophils Percent Auto 0.3 % (0-2); Eosinophils Absolute Auto 0 /uL (0-450); Eosinophils Percent Auto 0.3 % (2-4); Hematocrit 39.5 % (36-46); Lymphocytes Absolute Auto 1800 /uL (1100-4500); Lymphocytes Percent Auto 16.7 % (25-40); Mean Corpuscular HGB Conc 35.4 % (30-36); Mean Corpuscular Hemoglobin 30.2 PG (26-34); Mean Corpuscular Volume 85.4 fL (80-100); Monocytes Absolute Auto 700 /uL (0-900); Monocytes Percent Auto 6.7 % (3-14); Neutrophils Absolute Auto 8200 /uL (1500-7000); Platelet Count 259 X10^3/uL (150-400); Red Blood Cell Count 4.63 X10^6/uL (4.0-5.2); Red Cell Distribution Width 13.5 % (11.6-14.8); White Blood Cell Count 10.7 X10^3/uL (4.5-11.0)
--- NOTE | 2023-01-31 21:43 | ED.OVERDOSE ---
HPI - Overdose General Chief Complaint: Toxicology Problem Stated Complaint: pt claims she took 4 valiums Time Seen by Provider: 01/31/23 21:18 Source: patient and family Mode of arrival: Ambulatory History of Present Illness HPI Narrative: 83-year-old female nonsmoker with history of UTIs, anxiety, Alzheimer dementia, chronic renal failure, depression, PTSD presents with her who states that she took for Valium 10 mg tablets within the last hour. She denies wanting to hurt herself she states that she was feeling anxious and wanted to help. Her spouse is with her and states he is not exactly sure what she took but he keeps her Valium secured and administers them to her himself. He gave her a single tab this morning. He did find 2 bottles of hydrocodone in the medicine cabinet that he was unaware of. He is unaware exactly how much she took and when. He states her memory is shot. Repeatedly she states that she has no intention or desire to hurt herself. Related Data Home Medications Medication Instructions Recorded Confirmed calcium carbonate 500 mg calcium 1,500 mg PO DAILY 03/08/19 01/14/23 (1,250 mg) tablet Previous Rx's Medication Instructions Recorded alendronate 70 mg tablet 70 mg PO QWEEK #12 tabs 12/05/22 diazepam 5 mg tablet 10 mg PO DAILY PRN anxiety #60 tabs 12/05/22 tretinoin 0.1 % topical cream 1 applic topical BEDTIME #45 grams 12/20/22 aripiprazole 5 mg tablet 5 mg PO DAILY #30 tabs 01/14/23 duloxetine 30 mg capsule,delayed See Rx Instructions PO DAILY #60 01/20/23 release caps bupropion HCl 300 mg 24 hr tablet, 300 mg PO QDAY #30 tabs 01/25/23 extended release donepezil 10 mg tablet 10 mg PO BEDTIME #30 tabs 01/25/23 Allergies Allergy/AdvReac Type Severity Reaction Status Date / Time Sulfa (Sulfonamide Allergy Severe rash Verified 01/31/23 21:04 Antibiotics) [SULFA (SULFONAMIDE ANTIBIOTICS)] Penicillins [PENICILLINS] Allergy Unknown Verified 01/31/23 21:04 Iodinated Contrast Media Allergy Facial Verified 01/31/23 21:04 [Iodinated Contrast- Oral swelling and IV Dye] and rash codeine [CODEINE] AdvReac Mild upset Verified 01/31/23 21:04 stomach Review of Systems Review of Systems Narrative: GENERAL: Denies chills, fatigue, malaise, fever, sweats. HEENT: Denies sinus pain, ear pain, sore throat, difficulty swallowing, dizziness. RESPIRATORY: Denies dyspnea, cough, wheezing, hemoptysis, sputum. CARDIOVASCULAR: Denies chest pain, palpitations, orthopnea, edema, GASTROINTESTINAL: Denies nausea, vomiting, abdominal pain, diarrhea, constipation, melena. : Denies dysuria, frequency, incontinence, hematuria, urinary retention. MUSCULOSKELETAL: denies weakness, joint pain, or bony pain SKIN: Denies rash, skin lesions, or other NEUROLOGIC: Denies weakness, headache, numbness, change in speech, confusion, seizures, incoordination. PSYCHIATRIC: No concerning psychosocial issues. 12 point review of systems is negative except for those stated above Patient History Medical History Alzheimer's dementia Chronic renal failure, stage 2 (mild) Diarrhea Diverticular disease of colon Generalized anxiety disorder IBS (irritable bowel syndrome) Osteoporosis PTSD (post-traumatic stress disorder) QT prolongation Surgical History S/P exploratory laparotomy (~1991) S/P knee surgery (~2005) S/P tonsillectomy Status post cholecystectomy Social History household members: spouse Smoking Status: Never smoker Smoking Status: Never smoker alcohol intake frequency: 0-2 drinks per day Substance Use Type: does not use Exam Narrative Exam Narrative: GENERAL: [83] year old patient appears stated age. Well-developed patient, in mild distress. Pleasantly confused, GCS 14, speaking clearly though slowly and with purpose HEAD: Atraumatic. Normocephalic. EYES: Pupils equal round and reactive. Extraocular motions intact. No scleral icterus. No injection or drainage. ENT: Nose without bleeding, purulent drainage. Throat without erythema, tonsillar hypertrophy or exudate. Airway patent. NECK: Trachea midline. Non tender CARDIOVASCULAR: Regular rate and rhythm without murmurs, gallops, or rubs. RESPIRATORY: Clear to auscultation. Breath sounds equal bilaterally. No wheezes, rales, or rhonchi. GASTROINTESTINAL: Abdomen soft, non-tender, nondistended. EXTREMITIES: No edema or joint tenderness. BACK: Nontender without deformity or crepitance. No flank tenderness. NEURO: AOx3. SKIN: No rash or erythema of visible areas Initial Vital Signs Initial Vital Signs: Vital Signs Pulse Rate 40 L 01/31/23 21:04 Respiratory Rate 12 01/31/23 21:04 Blood Pressure 213/105 H 01/31/23 21:04 Pulse Oximetry 97 01/31/23 21:04 Oxygen Delivery Method Room Air 01/31/23 21:04 Course Orders Ordered: ED Orders 01/31/23 21:15 Acetaminophen Stat Complete Blood Count AUTO DIFF Stat Comprehensive Metabolic Panel Stat Ethanol (ETOH) Stat Lipase Stat Magnesium Stat Salicylate Stat 01/31/23 22:05 Urine Drug Screen, Rapid Stat 01/31/23 22:43 CT chest abd pel w con Stat 01/31/23 23:08 Urinalysis and Microscopic Stat 02/01/23 02:14 BMP [Basic Metabolic Panel] Stat Lipase Stat Discontinued Medications Charcoal (Activated Charcoal 50 Gm/240 Ml) 50 gm PO NOW ONE Stop: 01/31/23 21:19 Last Admin: 01/31/23 21:30 Dose: 50 gm Documented By: NIDA Sodium Chloride (Normal Saline 0.9%) 1,000 mls @ 1,000 mls/hr IV BOLUS ONE Stop: 01/31/23 22:17 Last Infusion: 01/31/23 22:41 Dose: 0 mls/hr Documented By: Admin: 01/31/23 21:30 Dose: 1,000 mls/hr Documented By: NIDA Naloxone HCl (Naloxone 4 Mg Nasal [place]) 4 mg MISC SEEINSTR ONE Stop: 02/01/23 03:29 Vital Signs Vital signs: Vital Signs - 8 hr 01/31/23 21:04 01/31/23 21:17 01/31/23 21:20 Pulse Rate 40 L 63 66 Respiratory Rate 12 29 H Blood Pressure 213/105 H Pulse Oximetry 97 94 93 Oxygen Delivery Method Room Air 01/31/23 21:20 01/31/23 21:30 01/31/23 21:30 Pulse Rate 61 Respiratory Rate 20 Blood Pressure 169/75 H 156/70 H Pulse Oximetry 93 Oxygen Delivery Method Room Air 01/31/23 22:01 01/31/23 22:05 01/31/23 22:05 Pulse Rate 74 80 Respiratory Rate 24 Blood Pressure 185/72 H Pulse Oximetry 95 99 Oxygen Delivery Method 01/31/23 22:30 01/31/23 22:30 01/31/23 23:00 Pulse Rate 68 78 Respiratory Rate 22 10 L Blood Pressure 165/74 H Pulse Oximetry 100 94 Oxygen Delivery Method 01/31/23 23:30 02/01/23 00:00 02/01/23 00:30 Pulse Rate 66 77 65 Respiratory Rate 16 23 17 Blood Pressure Pulse Oximetry 91 96 98 Oxygen Delivery Method 02/01/23 01:00 02/01/23 01:04 02/01/23 01:04 Pulse Rate 67 69 Respiratory Rate 12 22 Blood Pressure 135/72 Pulse Oximetry 96 98 Oxygen Delivery Method 02/01/23 01:30 02/01/23 02:00 02/01/23 02:30 Pulse Rate 84 67 66 Respiratory Rate 16 18 Blood Pressure Pulse Oximetry 94 97 96 Oxygen Delivery Method MDM - Overdose Lab Data 01/31/23 21:15 02/01/23 02:14 Labs: Lab Results 01/31/23 01/31/23 01/31/23 Range/Units 21:15 21:15 22:05 WBC 10.7 (4.5-11.0) X10^3/uL RBC 4.63 (4.0-5.2) X10^6/uL Hgb 14.0 (12.0-16.0) g/dL Hct 39.5 (36-46) % MCV 85.4 (80-100) fL MCH 30.2 (26-34) PG MCHC 35.4 (30-36) % RDW 13.5 (11.6-14.8) % Plt Count 259 (150-400) X10^3/uL Neut % (Auto) 76.0 H (50-75) % Lymph % (Auto) 16.7 L (25-40) % [place] % (Auto) 6.7 (3-14) % Eos % (Auto) 0.3 L (2-4) % Baso % (Auto) 0.3 (0-2) % Neut # (Auto) 8200 H (7913-0236) /uL Lymph # (Auto) 1800 (8540-5409) /uL [place] # (Auto) 700 (0-900) /uL Eos # (Auto) 0 (0-450) /uL Baso # (Auto) 0 (0-100) /uL Sodium 134 L (137-145) mmol/L Potassium 3.4 (3.4-5.1) mmol/L Chloride 100 (98-107) mmol/L Carbon Dioxide 23 (22-32) mmol/L BUN 21 H (7-17) mg/dL Creatinine 0.92 (0.52-1.04) mg/dL Estimated GFR > 60 (>60) mL/min BUN/Creatinine Ratio 22.8 H (6-22) Glucose 161 H (80-110) mg/dL Calcium 9.1 (8.4-10.2) mg/dL Magnesium 1.8 (1.6-2.3) mg/dL Total Bilirubin 1.2 (0.2-1.3) mg/dL AST 27 (14-36) IU/L ALT 21 (<35) IU/L Alkaline Phosphatase 79 (38-126) U/L Total Protein 7.6 (6.3-8.2) g/dL Albumin 4.4 (3.5-5.0) g/dL Globulin 3.2 (1.7-4.1) g/dL Albumin/Globulin Ratio 1.4 (1.0-2.8) Lipase 2951 H (23-300) U/L Urine Color Urine Appearance Urine pH (4.5-8.0) Ur Specific [place] (1.000-1.035) Urine Protein (Negative) Urine Glucose (UA) (Negative) g/dL Urine Ketones (NEGATIVE) Urine Occult Blood (Negative) Urine Nitrate (Negative) Urine Bilirubin (NEGATIVE) Urine Urobilinogen (0.2) E.U./dL Ur Leukocyte Esterase (NEGATIVE) Urine RBC (0-5/HPF) Urine WBC (0-5/HPF) Ur Squamous Epith Cells (0-5/HPF) Urine Bacteria (None) Ur Culture Indicated? Salicylates < 1.0 (<20) mg/dL U Opiates 300ng/mL cut Negative (Negative) Ur Oxycodone Screen Negative (Negative) Urine Methadone Screen Negative (Negative) Acetaminophen < 10 (10-30) ug/mL Ur Barbiturates Screen Negative (Negative) U Tricyclic Antidepress Negative (Negative) Ur Phencyclidine Scrn Negative (Negative) Ur Amphetamines Screen Negative (Negative) U Methamphetamines Scrn Negative (Negative) Ur MDMA Scrn (Ecstasy) Negative (Negative) U Benzodiazepines Scrn Positive H (Negative) Urine Cocaine Screen Negative (Negative) U Marijuana (THC) Screen Negative (Negative) Ethyl Alcohol < 10 ( - 10) mg/dL 01/31/23 02/01/23 Range/Units 23:08 02:14 WBC (4.5-11.0) X10^3/uL RBC (4.0-5.2) X10^6/uL Hgb (12.0-16.0) g/dL Hct (36-46) % MCV (80-100) fL MCH (26-34) PG MCHC (30-36) % RDW (11.6-14.8) % Plt Count (150-400) X10^3/uL Neut % (Auto) (50-75) % Lymph % (Auto) (25-40) % [place] % (Auto) (3-14) % Eos % (Auto) (2-4) % Baso % (Auto) (0-2) % Neut # (Auto) (2270-7183) /uL Lymph # (Auto) (9742-4837) /uL [place] # (Auto) (0-900) /uL Eos # (Auto) (0-450) /uL Baso # (Auto) (0-100) /uL Sodium 137 (137-145) mmol/L Potassium 3.4 (3.4-5.1) mmol/L Chloride 101 (98-107) mmol/L Carbon Dioxide 27 (22-32) mmol/L BUN 16 (7-17) mg/dL Creatinine 0.78 (0.52-1.04) mg/dL Estimated GFR > 60 (>60) mL/min BUN/Creatinine Ratio 20.5 (6-22) Glucose 118 H (80-110) mg/dL Calcium 8.3 L (8.4-10.2) mg/dL Magnesium (1.6-2.3) mg/dL Total Bilirubin (0.2-1.3) mg/dL AST (14-36) IU/L ALT (<35) IU/L Alkaline Phosphatase (38-126) U/L Total Protein (6.3-8.2) g/dL Albumin (3.5-5.0) g/dL Globulin (1.7-4.1) g/dL Albumin/Globulin Ratio (1.0-2.8) Lipase 1152 H D (23-300) U/L Urine Color Yellow Urine Appearance Clear Urine pH 6.0 (4.5-8.0) Ur Specific [place] <=1.005 (1.000-1.035) Urine Protein Negative (Negative) Urine Glucose (UA) 1+ H (Negative) g/dL Urine Ketones Negative (NEGATIVE) Urine Occult Blood Trace-intact (Negative) Urine Nitrate Negative (Negative) Urine Bilirubin Negative (NEGATIVE) Urine Urobilinogen 0.2 (0.2) E.U./dL Ur Leukocyte Esterase Negative (NEGATIVE) Urine RBC 0-1/hpf (0-5/HPF) Urine WBC None seen (0-5/HPF) Ur Squamous Epith Cells None seen (0-5/HPF) Urine Bacteria Few (2-10) H (None) Ur Culture Indicated? Cult not indicated Salicylates (<20) mg/dL U Opiates 300ng/mL cut (Negative) Ur Oxycodone Screen (Negative) Urine Methadone Screen (Negative) Acetaminophen (10-30) ug/mL Ur Barbiturates Screen (Negative) U Tricyclic Antidepress (Negative) Ur Phencyclidine Scrn (Negative) Ur Amphetamines Screen (Negative) U Methamphetamines Scrn (Negative) Ur MDMA Scrn (Ecstasy) (Negative) U Benzodiazepines Scrn (Negative) Urine Cocaine Screen (Negative) U Marijuana (THC) Screen (Negative) Ethyl Alcohol ( - 10) mg/dL [facility] Narrative Medical decision making narrative: CC: 83-year-old female presents with accidental overdose Complicating co-morbidities: Data collected from: Patient Medical records reviewed: Prior notes reviewed in our EMR Differential considered, but not limited to: Opioids versus benzos versus other Exam documented above, pertinent findings include: Initially a bit obtunded but airway intact, following commands, controlling secretions Lab Test results independently reviewed as above. Pertinent findings: Urine tox demonstrates benzos, no opioids, no leukocytosis or left shift, no signs of anemia, lipase is initially 2951 and then after fluids and time she drops to 1152. Independently reviewed EKG as above Imaging studies independently reviewed: CT chest abdomen and pelvis without signs of acute pancreatitis and no peripancreatic fluid collections Treatments: Charcoal, fluids and Narcan prepack Re-evaluations: Over time patient's relatively quickly returns to her neurologic baseline, at time of discharge she is at her baseline per , awake, alert and oriented, speaking clearly without slurring, walking a straight line, no respiratory distress. She repeatedly states that this overdose was accidental and she has no desire to hurt herself, her has recovered the medications and will dispense them himself moving forward. Her elevated lipase is of uncertain importance patient has 0 symptoms such as pain, nausea, vomiting. Return precautions discussed, given Narcan prepack and questions answered to their apparent satisfaction Discussion: Disposition: see below, along with detailed discharge instructions that have been reviewed with patient as well as indications for ED re-evaluation and additional outpatient follow up Naloxone at Discharge Meets criteria for naloxone at discharge?: Yes Discharge Plan Departure Patient Disposition: Home Clinical Impression: Accidental overdose Activity Restrictions/Additional Instructions: *You have been diagnosed with [accidental overdose. Painless pancreatitis ] *What to do: *Please continue to take your regular medications as directed. [ ] New medication prescriptions sent to your pharmacy: [ ] [ ] New medication written as a paper prescription [ ] No new medications given *Please follow up with your primary care provider in 2-3 days, call for an appointment. Let them know you were seen in the Emergency Department and that we ask that you be seen in follow up. We will electronically transmit a record of today's note if your PCP is in our system *If you do not have a primary care provider please contact the [facility] Resource line at [phone]. They will ask some questions about your medical history and help get you set up with a doctor in the community. *Return to Emergency Department if you should have any new, worsening or concerning symptoms, such as [fever greater than 101 F, shaking chills, worsening pain, persistent vomiting or other bothersome symptoms] Prescriptions: No Action calcium carbonate 500 mg calcium (1,250 mg) tablet 1,500 mg PO DAILY diazepam 5 mg tablet 10 mg PO DAILY PRN (Reason: anxiety) Qty: 60 5RF alendronate 70 mg tablet 70 mg PO QWEEK Qty: 12 4RF tretinoin 0.1 % cream 1 applic topical BEDTIME Qty: 45 3RF duloxetine 30 mg capsule,delayed release(DR/EC) See Rx Instructions PO DAILY Qty: 60 0RF Rx Instructions: Take 30mg daily for 1 week, then increase dose to 30mg TWICE daily bupropion HCl 300 mg tablet extended release 24 hr 300 mg PO QDAY Qty: 30 2RF donepezil 10 mg tablet 10 mg PO BEDTIME Qty: 30 2RF aripiprazole 5 mg tablet 5 mg PO DAILY Qty: 30 5RF Referrals: Nigel Galan MD [Primary Care Provider] - Stand Alone Forms: Patient Portal/API
[2023-01-31 21:46] LABS: Alanine Aminotransferase 21 IU/L (<35); Albumin 4.4 g/dL (3.5-5.0); Albumin Globulin Ratio 1.4 (1.0-2.8); Alkaline Phosphatase 79 U/L (38-126); Aspartate Aminotransferase 27 IU/L (14-36); BUN Creatinine Ratio 22.8 (6-22); Bilirubin Total 1.2 mg/dL (0.2-1.3); Blood Urea Nitrogen 21 mg/dL (7-17); Calcium 9.1 mg/dL (8.4-10.2); Carbon Dioxide 23 mmol/L (22-32); Chloride 100 mmol/L (98-107); Estimated Glomerular Filt Rate > 60 mL/min (>60); Globulin 3.2 g/dL (1.7-4.1); Glucose 161 mg/dL (80-110); HEMOLYSIS < 15 (0-50); Magnesium 1.8 mg/dL (1.6-2.3); Potassium 3.4 mmol/L (3.4-5.1); Sodium 134 mmol/L (137-145); Total Protein 7.6 g/dL (6.3-8.2)
[2023-01-31 21:57] LABS: Acetaminophen < 10 ug/mL (10-30); Ethanol (ETOH) < 10 mg/dL; Salicylate < 1.0 mg/dL (<20)
[2023-01-31 22:04] LABS: Lipase 2951 U/L (23-300)
[2023-01-31 22:20] LABS: UR Morphine/Opiate cutoff 300 Negative (Negative); Ur Creatinine <20 (Normal); Ur Specific Gravity 1.025 (Normal); Urine Amphetamines Negative (Negative); Urine Barbiturates Negative (Negative); Urine Benzodiazepines Positive (Negative); Urine Cocaine Negative (Negative); Urine MDMA Negative (Negative); Urine Methadone Negative (Negative); Urine Methamphetamines Negative (Negative); Urine Oxycodone Negative (Negative); Urine Phencyclidine Negative (Negative); Urine Tetrahydrocannabinol Negative (Negative); Urine Tricyclic Antidepressant Negative (Negative); Urine pH 5 (Normal)
--- NOTE | 2023-01-31 22:43 | DI.CT.S_ITS ---
PROCEDURE: CT CHEST ABD PEL W CON INDICATIONS: cough, SOB, abd pain, pancreatitis TECHNIQUE: After the administration of intravenous contrast, axial sections acquired from the supraclavicular neck to the pubic symphysis. Coronal and sagittal reformats were performed. For radiation dose reduction, the following was used: automated exposure control, adjustment of mA and/or kV according to patient size. COMPARISON: [facility], CT, CT ABDOMEN PELVIS WO CON, 04/08/2019, 13:41. FINDINGS: Image quality: Excellent. CHEST: Lower Neck: No lymphadenopathy by size criteria. Thyroid: Visualized thyroid demonstrates no discrete nodules. Axillae: No lymphadenopathy by size criteria. Chest Wall: Unremarkable. Lungs and Airways: No acute consolidation. There is mild dependent atelectasis. The trachea and central airways are patent. Pleura: No pneumothorax or pleural effusions. Heart: Heart size is normal. No pericardial effusion. Thoracic Vessels: The aorta and pulmonary arteries are normal in size. Mediastinum and Ne: No lymphadenopathy by size criteria. Esophagus: No wall thickening. There is a moderate to large hiatal hernia. ABDOMEN: Liver: There are cysts in the right and left hepatic lobes as well as additional small low-density foci which are too small to characterize but likely represent cysts. Gallbladder: Surgically absent. Biliary ducts: There is mild biliary ductal dilatation likely representing sequelae of prior cholecystectomy. Pancreas: No peripancreatic fat stranding or fluid to suggest acute pancreatitis on CT. No peripancreatic fluid collection. No pancreatic duct dilatation or discrete pancreatic mass. Spleen: Normal in size. There are a few small cystic lesions within the spleen which appear new from the prior study. Adrenal Glands: No adrenal nodules. Kidneys and Ureters: No hydronephrosis. Stomach and Bowel: Stomach and small bowel loops are normal in caliber and wall thickness. The appendix is not discretely visualized and may be surgically absent. No pericecal inflammatory changes to suggest appendicitis. There is mild segmental wall thickening within the sigmoid colon consistent with a nonspecific colitis. Colonic diverticulosis is present without definite acute diverticulitis. Peritoneum: No abnormal intraperitoneal fluid. No free air. Ventral Wall: No hernia. Abdominal Nodes: No retroperitoneal or mesenteric adenopathy by size criteria. Vessels: Aorta and inferior vena cava are normal in size. PELVIS: Pelvic Organs: Unremarkable. Bladder: Unremarkable. Pelvic Nodes: No enlarged lymph nodes. Miscellaneous: No inguinal hernias are seen. Bones: There are bilateral pars defects at L5 with associated anterolisthesis of L5 on S1 measuring 0.7 cm. Visualized osseous structures demonstrate no suspicious focal lesions. IMPRESSION: 1. No acute airspace consolidation. 2. No CT evidence of acute pancreatitis. No peripancreatic fluid collections. 3. Moderate to large hiatal hernia. 4. Segmental wall thickening in the sigmoid colon consistent with a nonspecific colitis. Dictated by: Kevon Abrams M.D. on 02/01/2023 at 0:21 Approved by: Kevon Abrams M.D. on 02/01/2023 at 0:27
[2023-01-31 23:22] LABS: Appearance Urine UA CLEAR; Bilirubin Urine UA NEGATIVE (NEGATIVE); Color Urine UA YELLOW; Glucose Urine UA 1+ g/dL (Negative); Ketones Urine UA NEGATIVE (NEGATIVE); Leukocyte Esterase Urine UA NEGATIVE (NEGATIVE); Nitrite Urine UA NEGATIVE (Negative); Occult Blood Urine UA TRACE-INTACT (Negative); Protein Urine UA NEGATIVE (Negative); Specific Gravity Urine UA <=1.005 (1.000-1.035); Urobilinogen Urine UA 0.2 E.U./dL (0.2)
[2023-01-31 23:31] LABS: Bacteria Urine Few (2-10); Culture Indicated Urine Cult Not Indicated; RBC Urine 0-1/HPF (0-5/HPF); Squamous Epithelial Cell Urine None Seen (0-5/HPF); WBC Urine None Seen (0-5/HPF)
[2023-02-01] VITALS (7 sets, daily range): BP systolic 135; BP diastolic 72; PULSE 65–84; RESP 12–23; O2SAT 94–98
[2023-02-01 02:28] LABS: BUN Creatinine Ratio 20.5 (6-22); Blood Urea Nitrogen 16 mg/dL (7-17); Calcium 8.3 mg/dL (8.4-10.2); Carbon Dioxide 27 mmol/L (22-32); Chloride 101 mmol/L (98-107); Estimated Glomerular Filt Rate > 60 mL/min (>60); Glucose 118 mg/dL (80-110); HEMOLYSIS < 15 (0-50); Potassium 3.4 mmol/L (3.4-5.1); Sodium 137 mmol/L (137-145)
[2023-02-01 02:34] LABS: Lipase 1152 U/L (23-300)
[2023-02-01] MEDS: NALOXONE 4 MG NASAL SPRAY MISC (03:35)
--- NOTE | 2023-02-01 04:17 | PC.NURSE ---
surrendered 2 bottles of [place]; stated I don't want these in the house. Robina, milieu coordinator, collected the medications, sealed them in the presence of RN and took them upstairs to the lock box.
== END 2023-02-01 03:41 | disposition home or self-care (01) ==
PROVIDERS: Emergency Provider Emergency Medicine; PCP Internal Medicine
DX: T42.4X1A Poisoning by benzodiazepines, accidental (unintentional), initial encounter (principal); R06.02 Shortness of breath; R10.9 Unspecified abdominal pain; R05.9 Cough, unspecified
CPT/HCPCS: 36415; 71260; 74177; 80048; 80053; 80305; 80320; 80329; 81001; 83690; 83735; 85025; 93005; 96360; 99284; A9270; G0480; Q9967

== ENCOUNTER → 2023-02-04 12:37 | Outpatient (CLI) | payer MEDICARE, SELFPAY | PROVIDERS: PCP Internal Medicine; Visit Provider Registered Nurse | DX: R41.0 Disorientation, unspecified (principal) | CPT/HCPCS: 87086 ==

== ENCOUNTER → 2024-12-14 12:29 | Outpatient (CLI) | payer MEDICARE, SELFPAY ==
[2024-12-14 13:13] LABS: Influenza A - CEPHEID Flu A POSITIVE (NEGATIVE); Influenza B - CEPHEID Flu B NEGATIVE (NEGATIVE); Respiratory Syncytial Virus Negative (Negative)
[2024-12-14 13:14] LABS: COVID-19 CEPHEID 4-PLEX PCR Negative (Negative)
== END ==
PROVIDERS: PCP Internal Medicine; Visit Provider Nurse Practitioner Family
DX: R05.1 Acute cough (principal)
CPT/HCPCS: 0241U

== ENCOUNTER → 2024-12-14 12:39 | Outpatient (CLI) | payer MEDICARE, SELFPAY ==
--- NOTE | 2024-12-14 12:40 | DI.RAD.S_ITS ---
PROCEDURE: XR CHEST 2V INDICATIONS: r/o PNA TECHNIQUE: 2 views of the chest were acquired. COMPARISON: None. FINDINGS: Surgical changes and devices: None. Lungs and pleura: Lungs are clear. No pleural effusions or pneumothorax. Mediastinum: Mediastinal contours are normal. Heart size is normal. Bones and chest wall: No suspicious bony abnormalities. Soft tissues appear unremarkable. IMPRESSION: No acute cardiopulmonary abnormality is seen. Dictated by: Billy Young M.D. on 12/14/2024 at 13:28 Approved by: Billy Young M.D. on 12/14/2024 at 13:28
== END ==
PROVIDERS: PCP Internal Medicine; Referring Provider Nurse Practitioner Family; Visit Provider Nurse Practitioner Family
DX: R05.1 Acute cough (principal)
CPT/HCPCS: 0241U; 71046